=== PATIENT | male | born 1950 | race Caucasian/White ===

== ENCOUNTER 2024-04-21 16:47 | Observation (INO) | payer MEDICARE, SELFPAY ==
[2024-04-21] VITALS (32 sets, daily range): BP systolic 132–150; BP diastolic 71–89; PULSE 69–102; TEMP 36.7–36.9; O2SAT 93–98; BMI 35.4; BMI 36.7
--- NOTE | 2024-04-21 17:24 | PC.NURSE ---
Alert and oriented to person, place and time. Answers all questions appropriately. Patient and relay that patient was confused this morning but confusion has since resolved. Hand grasp equal, PERRL.
--- NOTE | 2024-04-21 17:26 | ECG_ITS ---
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
--- NOTE | 2024-04-21 17:26 | XR_ITS ---
[facility] [place] [id number] Patient Name: YAIMA VIGIL MRN: [id number] date: 1950 Sex: M Assigned Patient Location: ER Current Patient Location: ER Accession/Order Number: [id number] Exam Date: 04/21/2024 17:43 Report Date: 04/21/2024 19:33 At the request of: YANCI CASTAÑEDA Procedure: XR chest 1V EXAMINATION: XR chest 1V, , 04/21/2024 5:43 PM EST INDICATION: Dizziness HISTORY: Ordering Provider Reason for Exam: Dizziness Technologist Note: Additional: COMPARISON: None. TECHNIQUE: Chest x-ray: One view. FINDINGS: No pneumothorax, pleural effusion or focal airspace consolidation. Heart is normal in size. Bony thorax is unremarkable. XR/XR chest 1V IMPRESSION: No acute cardiopulmonary process. Electronically authenticated by: ELYSE DAUGHERTY Date: 04/21/2024 19:33
--- NOTE | 2024-04-21 17:28 | ED.GENADUL1 ---
HPI HPI - General Adult General Chief complaint: Altered Mental Status Stated complaint: Dizziness Time Seen by Provider: 04/21/24 17:18 Source: patient Mode of arrival: walk-in History of Present Illness HPI narrative: 74-year-old male presented to the emergency department for a chief complaint of dizziness which is now resolved. It started at 7:00 or 8:00 this morning. At 6 AM he had a headache. He felt like he was off balance and could not walk straight. He did not have any localized weakness. The patient states that it went away when he and his decided to come in here to get checked. His states that much earlier today he was talking and was not making much sense, she states that what he was saying did not make sense and she had some trouble understanding his words as well. Related Data Home Medications ?Medication ?Instructions ?Recorded ?Confirmed citalopram 40 mg tablet mg 04/21/24 donepezil 10 mg tablet mg 04/21/24 rosuvastatin 10 mg tablet mg 04/21/24 Allergies Allergy/AdvReac Type Severity Reaction Status Date / Time No Known Drug Allergies Allergy Verified 04/21/24 17:03 Opioid HPI Opioid Management Most Recent Opioid Data: No Data to Display Review of Systems ROS Narrative A ten point review of systems is negative except as noted above. PFSH PFSH Social History Little interest or pleasure in doing things: not at all Feeling down, depressed, or hopeless: not at all Exam Narrative Exam Narrative: Nurses note and vital signs reviewed and patient is not hypoxic. General: The patient appears well and in no apparent distress. Patient is resting comfortably on cart. Skin: Warm, dry, no pallor noted. There is no rash noted. Head: Normocephalic, atraumatic Eye: Normal conjunctiva, no drainage Ears, Nose, Mouth, and Throat: oral mucosa is moist. Nares patent. Cardiovascular: Regular Rate and Rhythm Respiratory: Patient is in no distress, no accessory muscle use, lungs are clear to auscultation, no wheezing, rales or rhonchi Back: non-tender GI: Soft and nontender Musculoskeletal: The patient has no evidence of calf tenderness, no pitting edema, symmetrical pulses noted bilaterally Neurological: A&O x4, normal speech; upper and lower extremity strength 5 out of 5 and symmetric. Cranial nerves II through XII are intact Psychiatric: Cooperative Constitutional Vital Signs, click to edit/add: Last Vital Signs Temp 98.5 F 04/21/24 17:03 Pulse 73 04/21/24 17:31 Resp 20 04/21/24 17:31 BP 132/71 04/21/24 17:31 Pulse Ox 94 L 04/21/24 17:31 O2 Del Method Room Air 04/21/24 17:31 Course Vital Signs Vital signs: Vital Signs Temperature 98.5 F 04/21/24 17:03 Pulse Rate 77 04/21/24 17:03 Respiratory Rate 18 04/21/24 17:03 Blood Pressure 149/74 H 04/21/24 17:03 Pulse Oximetry 95 04/21/24 17:03 Oxygen Delivery Method Room Air 04/21/24 17:03 Temperature 98.5 F 04/21/24 17:03 Pulse Rate 73 04/21/24 17:31 Respiratory Rate 20 04/21/24 17:31 Blood Pressure 132/71 04/21/24 17:31 Pulse Oximetry 94 L 04/21/24 17:31 Oxygen Delivery Method Room Air 04/21/24 17:31 Medical Decision Making MDM Narrative Medical decision making narrative: CT brain is negative and urinalysis is pending. CTA head and neck are ordered and are pending and the patient is signed out to Dr. Lara at change of shift. Differential Diagnosis Differential Diagnosis: Stroke, UTI, metabolic encephalopathy Lab Data Lab results reviewed: Yes I reviewed the patient's lab results Labs: Lab Results 04/21/24 Range/Units 17:28 WBC 7.2 (4.0-11.0) 10^3/uL RBC 4.30 L (4.70-6.10) 10^6/uL Hgb 13.9 L (14.0-18.0) g/dL Hct 39.4 L (42.0-54.0) % MCV 91.6 (80.0-94.0) fL MCH 32.3 (25.9-34.0) pg MCHC 35.3 H (29.9-35.2) g/dL RDW 13.4 (11.0-15.0) % Plt Count 153 (150-450) 10^3/uL MPV 10.5 (9.5-13.5) fL Seg Neuts % (Manual) 81.0 H (43.0-75.0) Lymphocytes % (Manual) 12.0 L (20.5-60.0) % Monocytes % (Manual) 7.0 (1.7-12.0) % Eosinophils % (Manual) 0.0 L (0.9-7.0) % Basophils % (Manual) 0.0 L (0.2-2.0) % Neutrophils # (Manual) 5.83 (1.4-6.5) 10^3/uL Lymphocytes # (Manual) 0.86 L (1.20-3.80) 10^3/uL Monocytes # (Manual) 0.50 (0.30-0.80) 10^3/uL Eosinophils # (Manual) 0.00 (0.00-0.70) 10^3/uL Basophils # (Manual) 0.00 (0.00-0.10) 10^3/uL Sodium 138 (136-145) mmol/L Potassium 3.7 (3.5-5.1) mmol/L Chloride 103 (98-107) mmol/L Carbon Dioxide 26.5 (21.0-32.0) mmol/L Anion Gap 12.2 BUN 24.0 H (7.0-18.0) mg/dL Creatinine 1.22 (0.70-1.30) mg/dL Est GFR ( Amer) >60 (>=60 mL/min/1.73m^2) Est GFR (Non-Af Amer) 58 L (>=60 mL/min/1.73m^2) BUN/Creatinine Ratio 19.7 Glucose 99 (74-106) mg/dL Calcium 8.8 (8.5-10.1) mg/dL Troponin I High Sens <4.0 L (4.0-76.1) pg/mL Imaging Data CT scan - head: Radiologist's impression: ITS Impressions Head CT 04/21/24 17:49 IMPRESSION: 1. Mild old microvascular ischemic change and age-related cerebral atrophy. 2. No acute intracranial process. Electronically authenticated by: ANUM DERAS Date: 04/21/2024 18:14 ECG Data Attestation: I personally reviewed and interpreted this ECG as follows: ( EKG on my interpretation shows sinus rhythm with rate of 76 and no acute change) Discharge Plan Discharge Patient Disposition: Still a Patient
[2024-04-21 17:47] LABS: Hematocrit 39.4 % (42.0-54.0); Hemoglobin 13.9 g/dL (14.0-18.0); Mean Corpuscular HGB Conc 35.3 g/dL (29.9-35.2); Mean Corpuscular Hemoglobin 32.3 pg (25.9-34.0); Mean Corpuscular Volume 91.6 fL (80.0-94.0); Mean Platelet Volume 10.5 fL (9.5-13.5); Platelet Count 153 10^3/uL (150-450); Red Cell Distribution Width 13.4 % (11.0-15.0); White Blood Count 7.2 10^3/uL (4.0-11.0)
--- NOTE | 2024-04-21 17:49 | CT_ITS ---
[facility] [place] [id number] Patient Name: YAIMA VIGIL MRN: [id number] date: 1950 Sex: M Assigned Patient Location: ER Current Patient Location: ER Accession/Order Number: [id number] Exam Date: 04/21/2024 17:43 Report Date: 04/21/2024 18:14 At the request of: YANCI CASTAÑEDA Procedure: CT head/brain wo con EXAM: CT head/brain wo con HISTORY: Dizziness. TECHNIQUE: Axial CT scans through the head were obtained without IV contrast administration. Dose reduction techniques were achieved by using: automated exposure control and/or adjustment of mA and/or kV according to patient size and/or use of an iterative reconstruction technique. COMPARISON: None. FINDINGS: Mild periventricular low attenuation in the cerebral hemispheres without associated mass effect. The brainstem and the cerebellum appear normal. The ventricular system and cortical sulci are prominent, secondary to cerebral volume loss. No area of abnormal mass effect, edema, or intracranial hemorrhage is shown. The visualized orbits show no abnormal mass. The visualized paranasal sinuses show no air-fluid level. Mastoid air cells are clear. CT/CT head/brain wo con IMPRESSION: 1. Mild old microvascular ischemic change and age-related cerebral atrophy. 2. No acute intracranial process. Electronically authenticated by: ANUM DERAS Date: 04/21/2024 18:14
[2024-04-21 17:59] LABS: Anion Gap 12.2; BUN Creatinine Ratio 19.7; Calcium 8.8 mg/dL (8.5-10.1); Carbon Dioxide 26.5 mmol/L (21.0-32.0); Chloride 103 mmol/L (98-107); Estimated GFR (African America >60 (>=60 mL/min/1.73m^2); Estimated GFR (Non-African Ame 58 (>=60 mL/min/1.73m^2); Glucose 99 mg/dL (74-106); Potassium 3.7 mmol/L (3.5-5.1); Sodium 138 mmol/L (136-145)
[2024-04-21 18:07] LABS: Troponin I High Sensitivity <4.0 pg/mL (4.0-76.1)
[2024-04-21 18:23] LABS: Lymphocytes Absolute Manual 0.86 10^3/uL (1.20-3.80); Segmented Neut Absolute Manual 5.83 10^3/uL (1.4-6.5)
--- NOTE | 2024-04-21 18:33 | CT_ITS ---
[address] [address] Patient Name: YAIMA VIGIL MRN: [id number] date: 1950 Sex: M Assigned Patient Location: ER Current Patient Location: Accession/Order Number: [id number] Exam Date: 04/21/2024 19:00 Report Date: 04/21/2024 20:36 At the request of: YANCI CASTAÑEDA Procedure: CT angio neck EXAMINATION: CT angio head, CT angio neck HISTORY: speech change, resolved , dizziness, left-sided weakness COMPARISON: No relevant comparison available. TECHNIQUE: Axial, Coronal, and Sagittal CT images with IV contrast. Multi-planar/3-D imaging to optimize visualization of vascular anatomy. Percent stenosis is based on NASCET criteria. Dose reduction techniques were achieved by using automated exposure control and/or adjustment of mA and/or kV according to patient size and/or use of iterative reconstruction technique. FINDINGS: HEAD: VASCULATURE: Mild atherosclerotic disease of the parasellar carotid arteries. No significant stenosis. No visible aneurysm or vascular malformation. VENTRICLES: No enlargement or displacement. CEREBRUM: Normal for age. No excessive atrophy, mass, or hemorrhage, or abnormal enhancement. CEREBELLUM: Normal for age. No excessive atrophy, mass, or hemorrhage, or abnormal enhancement. BRAINSTEM: Normal for age. No excessive atrophy, mass, or hemorrhage, or abnormal enhancement. BASAL CISTERNS: Normal. No subarachnoid hemorrhage or effacement. SKULL: Negative. NECK: RIGHT INTERNAL CAROTID: No hemodynamically significant stenosis or dissection. EXTERNAL CAROTID: No hemodynamically significant stenosis or dissection. COMMON CAROTID: No hemodynamically significant stenosis or dissection. VERTEBRAL: No hemodynamically significant stenosis or dissection. LEFT INTERNAL CAROTID: No hemodynamically significant stenosis or dissection. EXTERNAL CAROTID: No hemodynamically significant stenosis or dissection. COMMON CAROTID: No hemodynamically significant stenosis or dissection. VERTEBRAL: No hemodynamically significant stenosis or dissection. OTHER: Moderate degenerative disc disease of lower cervical spine. CT/CT angio neck IMPRESSION: 1. Minimal atherosclerotic disease. Otherwise normal CT angiography of the head and neck. 2. Degenerative disc disease of cervical spine. Electronically authenticated by: DIMA VAZQUEZ Date: 04/21/2024 20:36
--- NOTE | 2024-04-21 18:33 | CT_ITS ---
[address] [address] Patient Name: YAIMA VIGIL MRN: [id number] date: 1950 Sex: M Assigned Patient Location: ER Current Patient Location: Accession/Order Number: [id number] Exam Date: 04/21/2024 19:00 Report Date: 04/21/2024 20:36 At the request of: YANCI CASTAÑEDA Procedure: CT angio head EXAMINATION: CT angio head, CT angio neck HISTORY: speech change, resolved , dizziness, left-sided weakness COMPARISON: No relevant comparison available. TECHNIQUE: Axial, Coronal, and Sagittal CT images with IV contrast. Multi-planar/3-D imaging to optimize visualization of vascular anatomy. Percent stenosis is based on NASCET criteria. Dose reduction techniques were achieved by using automated exposure control and/or adjustment of mA and/or kV according to patient size and/or use of iterative reconstruction technique. FINDINGS: HEAD: VASCULATURE: Mild atherosclerotic disease of the parasellar carotid arteries. No significant stenosis. No visible aneurysm or vascular malformation. VENTRICLES: No enlargement or displacement. CEREBRUM: Normal for age. No excessive atrophy, mass, or hemorrhage, or abnormal enhancement. CEREBELLUM: Normal for age. No excessive atrophy, mass, or hemorrhage, or abnormal enhancement. BRAINSTEM: Normal for age. No excessive atrophy, mass, or hemorrhage, or abnormal enhancement. BASAL CISTERNS: Normal. No subarachnoid hemorrhage or effacement. SKULL: Negative. NECK: RIGHT INTERNAL CAROTID: No hemodynamically significant stenosis or dissection. EXTERNAL CAROTID: No hemodynamically significant stenosis or dissection. COMMON CAROTID: No hemodynamically significant stenosis or dissection. VERTEBRAL: No hemodynamically significant stenosis or dissection. LEFT INTERNAL CAROTID: No hemodynamically significant stenosis or dissection. EXTERNAL CAROTID: No hemodynamically significant stenosis or dissection. COMMON CAROTID: No hemodynamically significant stenosis or dissection. VERTEBRAL: No hemodynamically significant stenosis or dissection. OTHER: Moderate degenerative disc disease of lower cervical spine. CT/CT angio head IMPRESSION: 1. Minimal atherosclerotic disease. Otherwise normal CT angiography of the head and neck. 2. Degenerative disc disease of cervical spine. Electronically authenticated by: DIMA VAZQUEZ Date: 04/21/2024 20:36
[2024-04-21 18:53] LABS: Bilirubin Urine NEGATIVE (NEGATIVE); Blood Urine NEGATIVE (NEGATIVE); Clarity Urine CLEAR (CLEAR); Color Urine LT. YELLOW (YELLOW); Glucose Urine UA NEGATIVE (NEGATIVE); Ketones Urine NEGATIVE (NEGATIVE); Leukocyte Esterase Urine NEGATIVE (NEGATIVE); Nitrite Urine NEGATIVE (NEGATIVE); Protein Urine NEGATIVE (NEG/TRACE); Specific Gravity Urine <=1.005 (1.005-1.025); Urobilinogen Urine 0.2 EU/dL (0.2-1.0)
[2024-04-21 19:05] LABS: Bacteria Urine NONE SEEN #/HPF (NONE SEEN); Cast Seen? NONE SEEN #/LPF (NONE SEEN); Crystals Seen? None Seen #/HPF (None Seen); Mucus Urine NONE SEEN (NONE SEEN); RBC Urine 0-2 #/HPF (0-2); Squamous Epithelial Cell Urine RARE #/LPF (NONE/RARE); Urine Culture Indicated NO; WBC Urine NONE SEEN #/HPF (NONE SEEN)
--- NOTE | 2024-04-21 19:54 | ED_ITS ---
HPI - Altered Mental Status General Chief Complaint: Altered Mental Status Stated Complaint: Dizziness Time Seen by Provider: 04/21/24 17:18 Source: patient and family Mode of arrival: walk-in History of Present Illness HPI narrative: This 74-year-old male was signed out to me at shift change. The patient presents for evaluation of expressive aphasia. According to the patient's he woke up this morning and did not feel well. He had the chills and a sore throat with a mild headache. He also complained of some dizziness. She went to the barn and got home around 330 at which time she found that he was having expressive aphasia and unable to speak normally. He had some degree of slurred speech and was not making sense when he talked. His symptoms persisted after coming to the emergency department. Initial CT scan of the brain and cardiac workup was ordered. The CT scan of the brain was negative and a CT angio of the head and neck was ordered. The patient was seen and evaluated with his at the bedside. The states that his symptoms have improved since being here. He is now awake alert and oriented. His speech is clear. He did have a difficult time reciting his address but otherwise his mentation appears to be normal. I repeated his neuroexam. 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 He can recall when he met his and what circumstances were. He recalls that he retired from [employer] after being there for 30 years. At this time we are waiting for the CT angio of the head and neck. CT angio of the head and neck is included by his report does not show any significant stenosis. The patient was reevaluated. His symptoms have not changed. He is on cholesterol medications and has been for a period of time and also is on donezepil for dementia. Currently this was recently increased to 10 mg at the MI. The patient was able to provide me with this history. Will be medicated with 324 mg baby aspirin. Case was discussed with the hospitalist and he is excepted for admission to [facility]. Related Data Home Medications ?Medication ?Instructions ?Recorded ?Confirmed citalopram 40 mg tablet mg 04/21/24 donepezil 10 mg tablet mg 04/21/24 rosuvastatin 10 mg tablet mg 04/21/24 Allergies Allergy/AdvReac Type Severity Reaction Status Date / Time No Known Drug Allergies Allergy Verified 04/21/24 17:03 PFSH PFSH Social History Little interest or pleasure in doing things: not at all Feeling down, depressed, or hopeless: not at all Exam Constitutional Vital Signs, click to edit/add: Last Vital Signs Temp 98.5 F 04/21/24 17:03 Pulse 75 04/21/24 19:30 Resp 24 H 04/21/24 19:30 BP 132/71 04/21/24 17:31 Pulse Ox 95 04/21/24 19:10 O2 Del Method Room Air 04/21/24 17:31 Course Vital Signs Vital signs: Vital Signs Temperature 98.5 F 04/21/24 17:03 Pulse Rate 77 04/21/24 17:03 Respiratory Rate 18 04/21/24 17:03 Blood Pressure 149/74 H 04/21/24 17:03 Pulse Oximetry 95 04/21/24 17:03 Oxygen Delivery Method Room Air 04/21/24 17:03 Temperature 98.5 F 04/21/24 17:03 Pulse Rate 75 04/21/24 19:30 Respiratory Rate 24 H 04/21/24 19:30 Blood Pressure 132/71 04/21/24 17:31 Pulse Oximetry 95 04/21/24 19:10 Oxygen Delivery Method Room Air 04/21/24 17:31 MDM - Altered Mental Status Medical Records Medical records narrative: [place] [address] CT Scan Report Signed Patient: YAIMA VIGIL MR#: [id number] : 1950 Acct:[id number] Age/Sex: 74 / M ADM Date: 04/21/24 Loc: ER Attending Dr: Ordering Physician: Yanci Castañeda M.D. Date of Service: 04/21/24 Procedure(s): CT angio neck Accession Number(s): [id number] cc: [facility] ~ [facility] [place] [id number] Patient Name: YAIMA VIGIL MRN: [id number] date: 1950 Sex: M Assigned Patient Location: ER Current Patient Location: ER Accession/Order Number: [id number] Exam Date: 04/21/2024 19:00 Report Date: 04/21/2024 20:36 At the request of: YANCI CASTAÑEDA Procedure: CT angio neck EXAMINATION: CT angio head, CT angio neck HISTORY: speech change, resolved , dizziness, left-sided weakness COMPARISON: No relevant comparison available. TECHNIQUE: Axial, Coronal, and Sagittal CT images with IV contrast. Multi-planar/3-D imaging to optimize visualization of vascular anatomy. Percent stenosis is based on NASCET criteria. Dose reduction techniques were achieved by using automated exposure control and/or adjustment of mA and/or kV according to patient size and/or use of iterative reconstruction technique. FINDINGS: HEAD: VASCULATURE: Mild atherosclerotic disease of the parasellar carotid arteries. No significant stenosis. No visible aneurysm or vascular malformation. VENTRICLES: No enlargement or displacement. CEREBRUM: Normal for age. No excessive atrophy, mass, or hemorrhage, or abnormal enhancement. CEREBELLUM: Normal for age. No excessive atrophy, mass, or hemorrhage, or abnormal enhancement. BRAINSTEM: Normal for age. No excessive atrophy, mass, or hemorrhage, or abnormal enhancement. BASAL CISTERNS: Normal. No subarachnoid hemorrhage or effacement. SKULL: Negative. NECK: RIGHT INTERNAL CAROTID: No hemodynamically significant stenosis or dissection. EXTERNAL CAROTID: No hemodynamically significant stenosis or dissection. COMMON CAROTID: No hemodynamically significant stenosis or dissection. VERTEBRAL: No hemodynamically significant stenosis or dissection. LEFT INTERNAL CAROTID: No hemodynamically significant stenosis or dissection. EXTERNAL CAROTID: No hemodynamically significant stenosis or dissection. COMMON CAROTID: No hemodynamically significant stenosis or dissection. VERTEBRAL: No hemodynamically significant stenosis or dissection. OTHER: Moderate degenerative disc disease of lower cervical spine. CT/CT angio neck IMPRESSION: 1. Minimal atherosclerotic disease. Otherwise normal CT angiography of the head and neck. 2. Degenerative disc disease of cervical spine. Electronically authenticated by: DIMA VAZQUEZ Date: 04/21/2024 20:36 Lab Data Attestation: I reviewed the patient's lab results. Labs: Lab Results 04/21/24 04/21/24 Range/Units 17:28 18:44 WBC 7.2 (4.0-11.0) 10^3/uL RBC 4.30 L (4.70-6.10) 10^6/uL Hgb 13.9 L (14.0-18.0) g/dL Hct 39.4 L (42.0-54.0) % MCV 91.6 (80.0-94.0) fL MCH 32.3 (25.9-34.0) pg MCHC 35.3 H (29.9-35.2) g/dL RDW 13.4 (11.0-15.0) % Plt Count 153 (150-450) 10^3/uL MPV 10.5 (9.5-13.5) fL Seg Neuts % (Manual) 81.0 H (43.0-75.0) Lymphocytes % (Manual) 12.0 L (20.5-60.0) % Monocytes % (Manual) 7.0 (1.7-12.0) % Eosinophils % (Manual) 0.0 L (0.9-7.0) % Basophils % (Manual) 0.0 L (0.2-2.0) % Neutrophils # (Manual) 5.83 (1.4-6.5) 10^3/uL Lymphocytes # (Manual) 0.86 L (1.20-3.80) 10^3/uL Monocytes # (Manual) 0.50 (0.30-0.80) 10^3/uL Eosinophils # (Manual) 0.00 (0.00-0.70) 10^3/uL Basophils # (Manual) 0.00 (0.00-0.10) 10^3/uL Sodium 138 (136-145) mmol/L Potassium 3.7 (3.5-5.1) mmol/L Chloride 103 (98-107) mmol/L Carbon Dioxide 26.5 (21.0-32.0) mmol/L Anion Gap 12.2 BUN 24.0 H (7.0-18.0) mg/dL Creatinine 1.22 (0.70-1.30) mg/dL Est GFR ( Amer) >60 (>=60 mL/min/1.73m^2) Est GFR (Non-Af Amer) 58 L (>=60 mL/min/1.73m^2) BUN/Creatinine Ratio 19.7 Glucose 99 (74-106) mg/dL Calcium 8.8 (8.5-10.1) mg/dL Troponin I High Sens <4.0 L (4.0-76.1) pg/mL Urine Color Lt. yellow (YELLOW) Urine Clarity Clear (CLEAR) Urine pH 6.0 (5.0-9.0) Ur Specific [place] <=1.005 A (1.005-1.025) Urine Protein Negative (NEG/TRACE) mg/dL Urine Glucose (UA) Negative (NEGATIVE) mg/dL Urine Ketones Negative (NEGATIVE) mg/dL Urine Occult Blood Negative (NEGATIVE) Urine Nitrite Negative (NEGATIVE) Urine Bilirubin Negative (NEGATIVE) Urine Urobilinogen 0.2 (0.2-1.0) EU/dL Ur Leukocyte Esterase Negative (NEGATIVE) Urine RBC 0-2 (0-2) #/HPF Urine WBC None seen (NONE SEEN) #/HPF Ur Squamous Epith Cells Rare (NONE/RARE) #/LPF Urine Crystals None seen (None Seen) #/HPF Urine Bacteria None seen (NONE SEEN) #/HPF Urine Casts None seen (NONE SEEN) #/LPF Urine Mucus None seen (NONE SEEN) Ur Culture Indicated? No Discharge Plan Discharge Chief Complaint: Altered Mental Status Clinical Impression: Altered mental status, Expressive aphasia Patient Disposition: Admitted as Observation Time of Disposition Decision: 20:49 Condition: Good
[2024-04-21] MEDS: ASPIRIN 81 MG TAB.CHEW 324 MG PO (21:07)
[2024-04-21 21:11] LABS: Influenza Virus A Antigen Negative; Influenza Virus B Antigen Negative; Internal Control Within Normal Limits; SARS-CoV-2 Ag POSITIVE (NEGATIVE)
[2024-04-22] VITALS (11 sets, daily range): BP systolic 141–162; BP diastolic 73–92; PULSE 78–87; TEMP 36.1–38.3; O2SAT 93–96
--- NOTE | 2024-04-22 | MR_ITS ---
The [address] [address] Patient Name: YAIMA VIGIL MRN: [id number] date: 1950 Sex: M Assigned Patient Location: MS Current Patient Location: MS Accession/Order Number: [id number] Exam Date: 04/22/2024 11:00 Report Date: 04/22/2024 12:12 At the request of: GUILLERMO HINKLE Procedure: MR head/brain wo con EXAM: MR head/brain wo con HISTORY: Confusion, covid positive, rule out CVA COMPARISON: CT head 04/21/2024. TECHNIQUE: Multiplanar multisequence MR imaging of the brain was performed without intravenous contrast. FINDINGS: Calvarium/skull base: No focal marrow replacing lesion suggestive of neoplasm. Orbits: Grossly unremarkable. Paranasal sinuses: Imaged portions clear Brain: No restricted diffusion. Mild scattered T2 FLAIR signal hyperintensities are present involving the supratentorial white matter with sparing of the central pontine white matter. Mild to moderate parenchymal volume loss with associated prominence of the ventricular system and to a lesser extent sulci. No mass effect, hemorrhage, or hydrocephalus. Grossly normal flow-related signal in the major intracranial arteries and dural sinuses. MR/MR head/brain wo con IMPRESSION: No acute ischemia. Electronically authenticated by: AUBREY GORMAN Date: 04/22/2024 12:12
[2024-04-22] MEDS: ACETAMINOPHEN 325 MG TABLET 650 MG PO (04:32)
[2024-04-22 05:19] LABS: Basophils Percent Auto 0.1 % (0.2-2.0); Hematocrit 40.6 % (42.0-54.0); Hemoglobin 13.9 g/dL (14.0-18.0); Immature Granulocytes Abs Auto 0.03 10^3/uL (0.00-0.03); Immature Granulocytes Pct Auto 0.4 % (0.0-0.5); Lymphocytes Absolute Auto 0.7 10^3/uL (1.2-3.8); Lymphocytes Percent Auto 8.2 % (20.5-60.0); Mean Corpuscular HGB Conc 34.2 g/dL (29.9-35.2); Mean Corpuscular Volume 90.4 fL (80.0-94.0); Mean Platelet Volume 10.4 fL (9.5-13.5); Monocytes Absolute Auto 1.2 10^3/uL (0.3-0.8); Neutrophils Absolute Auto 6.6 10^3/uL (1.4-6.5); Neutrophils Percent Auto 77.3 % (43.0-75.0); Platelet Count 144 10^3/uL (150-450); Red Blood Count 4.49 10^6/uL (4.70-6.10); Red Cell Distribution Width 13.5 % (11.0-15.0); White Blood Count 8.5 10^3/uL (4.0-11.0)
[2024-04-22 05:41] LABS: Alanine Aminotransferase 32 U/L (16-63); Albumin Globulin Ratio 1.3; Alkaline Phosphatase 70 U/L (46-116); Aspartate Amino Transferase 27 U/L (15-37); BUN Creatinine Ratio 17.8; Bilirubin Total 0.4 mg/dL (0.2-1.0); Calcium 8.6 mg/dL (8.5-10.1); Carbon Dioxide 23.7 mmol/L (21.0-32.0); Chloride 101 mmol/L (98-107); Estimated GFR (African America >60 (>=60 mL/min/1.73m^2); Estimated GFR (Non-African Ame >60 (>=60 mL/min/1.73m^2); Globulin 3.1 g/dL; Glucose 185 mg/dL (74-106); Magnesium 1.9 mg/dL (1.8-2.4); Potassium 3.7 mmol/L (3.5-5.1); Sodium 138 mmol/L (136-145); Total Protein 7.1 g/dL (6.4-8.2)
--- NOTE | 2024-04-22 08:23 | PM.HP ---
HPI H&P: HPI History of Present Illness Chief complaint: Dizziness, EXCESSIVE APHASIA, COVID + Narrative: Patient is a 74 y.o white male with past medical history of mild/early dementia, depression and Hyperlipidemia, who gets most of his medical care at the [facility]. He presented to the ER yesterday chills and a sore throat with a mild headache. He also complained of some dizziness. Yesterday around 330 he was unable to speak normally and this was preceded by some left leg weakness the day before. He had some degree of slurred speech and was not making sense when he talked per . His symptoms persisted after coming to the emergency department but have resolved this morning. Initial CT scan of the brain and cardiac workup was ordered. The CT scan of the brain was negative and a CT angio of the head and neck was ordered. CT angio of the head and neck does not show any significant stenosis. Patient was medicated with 324 mg baby aspirin. He was continued on his rosuvastatin. He also tested positive for Covid-19. At the time of my exam this morning patient has no trouble with speech, he has no weakness. He said he is back to his normal. Opioid HPI Opioid Management Most Recent Pain and Opioid Data: Last Pain Assessment 04/22/24 13:39 Last MAR Pain Assessment 04/22/24 05:24 Last ORT Total Score 0 04/21/24 23:30 04/21/24 Last ORT Risk Category Low Risk 04/21/24 23:30 04/21/24 Review of Systems ROS Narrative ROS: a complete review of systems were reviewed with patient and are positive as below or listed in History of Chief Complaint. General: no fever, chills, night sweats Head: headache, no trauma, visual changes, nausea or vomiting Skin: no reported rashes, itching or sores Eyes: no blurriness of vision Ears: no reported hearing loss, vertigo, earache, or tinnitus Throat: sore throat, no hoarseness, swelling of neck, or tongue pain Heart: no chest pain Lungs: no shortness of breath but cough GI: no diarrhea or vomiting/nausea Urinary: no urinary urgency, frequency or pain Neuro: no numbness or tingling HEM: no bleeding issues or bruising ENDO: no thyroid problems Psych: anxiety and depression [facility] Medical History (Updated 04/22/24 @ 08:35 by Renee Chavira DO) Anxiety ?F41.9 - Anxiety disorder, unspecified (ICD-10) Hyperlipidemia ?E78.5 - Hyperlipidemia, unspecified (ICD-10) History of dementia ?Z86.59 - Personal history of other mental and behavioral disorders (ICD-10) Social History Little interest or pleasure in doing things: not at all Feeling down, depressed, or hopeless: not at all Meds Home Medications and Allergies Home Medications ?Medication ?Instructions ?Recorded ?Confirmed ?Type citalopram 40 mg tablet 40 mg PO DAILY 04/21/24 04/22/24 History donepezil 10 mg tablet 10 mg PO .QHS 04/21/24 04/22/24 History rosuvastatin 10 mg tablet 10 mg PO .QHS 04/21/24 04/22/24 History Allergies Allergy/AdvReac Type Severity Reaction Status Date / Time No Known Drug Allergies Allergy Verified 04/21/24 17:03 Exam Narrative Exam Narrative: General: Patient is alert, and oriented to person, place and time with normal affect, proper hygiene Skin: no visible rashes, or ulcers Head: atraumatic, acephalic Eyes: PERRLA, no nystagmus present, conjunctiva clear, no scleral icterus Ears: normal gross auditory acuity Nose: symmetric, no discharge, no maxillary or frontal sinus tenderness Neck: no masses palpated, normal thyroid, no JVD or audible carotid bruits Heart: Normal rate and rhythm, no murmurs/rubs/gallops Lungs: no audible wheezes, crackles and normal breath sounds all lung lawson Abdomen: Normal audible bowel sounds, no distension, No palpable masses, no organomegaly, no rebound/guarding/ or rigidity Musculoskeletal: no swelling bilateral lower extremities Neuro: CN II-X grossly intact, normal sensation upper and lower extremities Constitutional Vital Signs, click to edit/add: Last Vital Signs Temp 99.0 F 04/22/24 07:45 Pulse 80 04/22/24 08:00 Resp 14 04/22/24 07:45 BP 151/92 H 04/22/24 07:45 Pulse Ox 95 04/22/24 07:45 O2 Del Method Room Air 04/22/24 07:45 Results Labs Labs: Short CBC 04/21/24 04/22/24 Range/Units 17:28 04:56 WBC 7.2 8.5 (4.0-11.0) 10^3/uL Hgb 13.9 L 13.9 L (14.0-18.0) g/dL Hct 39.4 L 40.6 L (42.0-54.0) % Plt Count 153 144 L (150-450) 10^3/uL BMP 04/21/24 04/22/24 17:28 04:56 Sodium 138 138 Potassium 3.7 3.7 Chloride 103 101 Carbon Dioxide 26.5 23.7 BUN 24.0 H 18.0 Creatinine 1.22 1.01 Glucose 99 185 H Calcium 8.8 8.6 Liver Function 04/22/24 Range/Units 04:56 Total Bilirubin 0.4 (0.2-1.0) mg/dL AST 27 (15-37) U/L ALT 32 (16-63) U/L Alkaline Phosphatase 70 (46-116) U/L Albumin 4.0 (3.4-5.0) g/dL Urine 04/21/24 Range/Units 18:44 Urine Color Lt. yellow (YELLOW) Urine Clarity Clear (CLEAR) Urine pH 6.0 (5.0-9.0) Ur Specific [place] <=1.005 A (1.005-1.025) Urine Protein Negative (NEG/TRACE) mg/dL Urine Glucose (UA) Negative (NEGATIVE) mg/dL Assessment and Plan Assessment and Plan (1) Expressive aphasia: Assessment and Plan: Initial imaging with CT and CTA showed no significant pathology or acute stroke. Symptoms of slurred speech consistent with CVA. These symptoms have resolved this morning. Continue with Aspirin and Statin. Continue Neurochecks, NeuroStroke evalution, MRI this morning was negative and Echo is pending. Blood pressure is elevated and not optimized. Will place on Coreg 3.125mg BID. (2) Bronchitis due to COVID-19 virus: Assessment and Plan: Symptomatic treatment only. Chest X-ray showed no acute pneumonia, oxygen status remaining stable (3) Hyperlipidemia: Assessment and Plan: recheck lipids this morning, continue rosuvastatin Qualifiers: Hyperlipidemia type: unspecified Qualified Code(s): E78.5 - Hyperlipidemia, unspecified (4) Anxiety: Assessment and Plan: continue celexa, give Ativan prior to MRI for claustrophobia Plan Patient is a full code continue lovenox for DVT prophylaxis Patient is in observation status and not expected to cross 2 midnights. Hopeful discharge home today with close neurology follow up.
--- NOTE | 2024-04-22 08:36 | CA_ITS ---
Patient Name: YAIMA VIGIL MR#: [id number] : 1950 Exam Date: 04/22/2024 Ordering Doctor: ANNIE KIRKLAND . ECHOCARDIOGRAM REPORT PROCEDURE: CA ECHO LIMITED INDICATIONS: CVA COMPARISON: None. DESCRIPTION: Limited ECHOCARDIOGRAM Real-time transthoracic echocardiography with 2D and M-mode performed. QUALITY: Technical quality was good. LEFT VENTRICLE: Normal chamber size. Mild concentric left ventricular hypertrophy. Global left ventricular systolic function is normal. LV EF: Estimated left ventricular ejection fraction is 55-60%. DIASTOLIC: ATRIAL SEPTUM: Color Doppler does not reveal an intra-cardiac shunt. LEFT ATRIUM: Mild dilatation. RIGHT ATRIUM: Mild dilatation. RIGHT VENTRICLE: Normal chamber size. Normal right ventricular systolic function. TRICUSPID VALVE: Normal mobility and thickness. MITRAL VALVE: Normal mobility and thickness. Mitral annular calcification. AORTIC VALVE: Normal trileaflet appearance. Normal leaflet mobility. AORTIC ROOT: Normal diameter and appearance. PULMONIC VALVE: Normal thickness and mobility. PERICARDIUM: No evidence of pericardial effusion. IVC: Collapses with inspirations. Normal size. PLEURA: CONCLUSION: 1. Mild concentric left ventricular hypertrophy with normal systolic function. LVEF is estimated at 55-60%. 2. Normal right ventricular size and systolic function. 3. Mild biatrial dilatation. 4. The interatrial septum is intact by color Doppler interrogation. 5. Saline contrast study was not performed. 6. Limited study performed with no Doppler interrogation of the valves, as requested. Adult Echocardiography Procedure Report Left Ventricle LVEDD (3.7 - 5.6 cm): 5.00 cm LVESD (2.2 - 4.0 cm): 3.16 cm LVIVS thickness (0.6 - 1.2 cm): 1.08 cm LVPW thickness (0.5 - 1.0 cm): 1.06 cm LVOT Diameter 2.52 cm Left Ventricular Ejection Fraction: 55-60 % Left Atrium LA Volume Index (2D A2C): 39.00 ml/m2 Left Atrium Systolic Dimension: 4.56 cm Mitral Valve Right Ventricle RV Internal Diastolic Dimension: 3.66 cm Aorta AO Root Diam: 3.62 cm Ascending Ao Diam: 4.18 cm Aortic Valve Tricuspid Valve Pulmonic Valve Right Atrium Right Atrium Systolic Pressure: 46.48 ml, 46.48 ml Dictated by: Warren Yuen M.D. on 04/26/2024 at 13:25 Approved by: Warren Yuen M.D. on 04/26/2024 at 13:29
[2024-04-22 09:02] LABS: Estimated Average Glucose 126 mg/dL
[2024-04-22 09:11] LABS: Chol HDL Ratio 2.2; Cholesterol 152 mg/dL (<=200); HDL Cholesterol 69 mg/dL (40-60); Thyroid Stimulating Hormone 1.115 uIU/mL (0.358-3.740); Triglycerides 42 mg/dL (<=150); VLDL CHOLESTEROL 8.4 mg/dL
[2024-04-22] MEDS: CARVEDILOL 3.125 MG TABLET PO (09:38)
[2024-04-22] MEDS: CITALOPRAM HYDROBROMIDE 20 MG TABLET 40 MG PO (09:38)
[2024-04-22] MEDS: LORAZEPAM 0.5 MG TABLET 0.25 MG PO (10:49)
--- NOTE | 2024-04-22 12:03 | CM.NOTE ---
Rounds made with Dr. Chavira, discussed test results with pt and need for echo and MRI prior to discharge. Teleneuro will also evaluate pt today with further recommendations. Pt will need to f/u with PCP and neurologist.
--- NOTE | 2024-04-22 12:05 | CM.NOTE ---
Discussed Medicare Outpatient Observation Notice with pt, pt verbalizes understanding and signs paper. Original given to pt and copy placed on pt's chart.
--- NOTE | 2024-04-22 15:58 | PM.DS1 ---
DS: Providers Provider Date of admission: 04/21/24 22:20 Primary care physician: RUSS SALEEM Attending physician on admission: Renee Chavira Consults: 04/22/24 08:38 Occupational Therapy Eval and Treat Routine Reason for consultation: CVA symptoms Has provider been notified: No Physical Therapy Eval and Treat Routine Reason for consultation: CVA symptoms Has provider been notified: No 04/22/24 08:40 Consult to Telestroke Routine Reason for consultation: CVA symptoms Has provider been notified: No Discharging clinician: Renee Chavira DS: Diagnosis Discharge Diagnosis (1) Expressive aphasia: (2) Bronchitis due to COVID-19 virus: (3) Hyperlipidemia: Qualifiers: Hyperlipidemia type: unspecified Qualified Code(s): E78.5 - Hyperlipidemia, unspecified (4) Anxiety: DS: Summary Hospital Course Hospital Course: patient with normal MRI of the brain, CT and CTA, speech symptoms have resolved. Telestroke consult recommended outpatient EEG which can be ordered when he sees Neurologist on May 11. Also recommended daily aspirin 81mg daily in addition to his home medications. Continue to monitor blood pressures, heart healthy diet. He will follow up with PCP for Echocardiogram results and further work up. Symptomatic treatment of Covid. Patient may return to the ER with any worsening signs or symptoms. Status at Discharge Functional status at discharge: independent ambulation Overall status at discharge: patient is back to baseline Time Spent with Patient Time attestation: Total time spent providing and/or coordinating discharge services: Time spent: greater than 30 minutes Quality: Stroke Onset of Symptoms Date: 04/21/24 Onset of Symptoms Time: 11:30 Symptom Onset Unknown: Yes Exam Narrative Exam Narrative: no changes at the time of discharge from the admission H&P dated 04/22/24 Constitutional Vital Signs, click to edit/add: Last Vital Signs Temp 97 F L 04/22/24 12:00 Pulse 78 04/22/24 12:00 Resp 20 04/22/24 12:00 BP 141/73 04/22/24 12:00 Pulse Ox 96 04/22/24 12:00 O2 Del Method Room Air 04/22/24 12:00 DS: Data Data Completed and Pending Labs on day of discharge: Labs from last 24 hours 04/22/24 04/21/24 04/21/24 04:56 20:50 18:44 WBC 8.5 RBC 4.49 L Hgb 13.9 L Hct 40.6 L MCV 90.4 MCH 31.0 MCHC 34.2 RDW 13.5 Plt Count 144 L MPV 10.4 Neut % (Auto) 77.3 H Lymph % (Auto) 8.2 L [place] % (Auto) 14.0 H Eos % (Auto) 0.0 L Baso % (Auto) 0.1 L Neut # (Auto) 6.6 H Lymph # (Auto) 0.7 L [place] # (Auto) 1.2 H Eos # (Auto) 0.0 Baso # (Auto) 0.0 Abs Immat Gran (auto) 0.03 Seg Neuts % (Manual) Lymphocytes % (Manual) Monocytes % (Manual) Eosinophils % (Manual) Basophils % (Manual) Imm/Tot Granulo (auto) 0.4 Neutrophils # (Manual) Lymphocytes # (Manual) Monocytes # (Manual) Eosinophils # (Manual) Basophils # (Manual) Sodium 138 Potassium 3.7 Chloride 101 Carbon Dioxide 23.7 Anion Gap 17.0 BUN 18.0 Creatinine 1.01 Est GFR ( Amer) >60 Est GFR (Non-Af Amer) >60 BUN/Creatinine Ratio 17.8 Glucose 185 H Estimat Average Glucose 126 Hemoglobin A1c 6.0 Calcium 8.6 Magnesium 1.9 Total Bilirubin 0.4 AST 27 ALT 32 Alkaline Phosphatase 70 Troponin I High Sens Total Protein 7.1 Albumin 4.0 Globulin 3.1 Albumin/Globulin Ratio 1.3 Triglycerides 42 Cholesterol 152 LDL Cholesterol, Calc 75.0 VLDL Cholesterol 8.4 HDL Cholesterol 69 H Cholesterol/HDL Ratio 2.2 TSH 1.115 Urine Color Lt. yellow Urine Clarity Clear Urine pH 6.0 Ur Specific [place] <=1.005 A Urine Protein Negative Urine Glucose (UA) Negative Urine Ketones Negative Urine Occult Blood Negative Urine Nitrite Negative Urine Bilirubin Negative Urine Urobilinogen 0.2 Ur Leukocyte Esterase Negative Urine RBC 0-2 Urine WBC None seen Ur Squamous Epith Cells Rare Urine Crystals None seen Urine Bacteria None seen Urine Casts None seen Urine Mucus None seen Ur Culture Indicated? No Influenza Type A Ag Negative Influenza Type B Ag Negative SARS-CoV-2 Ag (CV2AG) Positive A 04/21/24 17:28 WBC 7.2 RBC 4.30 L Hgb 13.9 L Hct 39.4 L MCV 91.6 MCH 32.3 MCHC 35.3 H RDW 13.4 Plt Count 153 MPV 10.5 Neut % (Auto) Lymph % (Auto) [place] % (Auto) Eos % (Auto) Baso % (Auto) Neut # (Auto) Lymph # (Auto) [place] # (Auto) Eos # (Auto) Baso # (Auto) Abs Immat Gran (auto) Seg Neuts % (Manual) 81.0 H Lymphocytes % (Manual) 12.0 L Monocytes % (Manual) 7.0 Eosinophils % (Manual) 0.0 L Basophils % (Manual) 0.0 L Imm/Tot Granulo (auto) Neutrophils # (Manual) 5.83 Lymphocytes # (Manual) 0.86 L Monocytes # (Manual) 0.50 Eosinophils # (Manual) 0.00 Basophils # (Manual) 0.00 Sodium 138 Potassium 3.7 Chloride 103 Carbon Dioxide 26.5 Anion Gap 12.2 BUN 24.0 H Creatinine 1.22 Est GFR ( Amer) >60 Est GFR (Non-Af Amer) 58 L BUN/Creatinine Ratio 19.7 Glucose 99 Estimat Average Glucose Hemoglobin A1c Calcium 8.8 Magnesium Total Bilirubin AST ALT Alkaline Phosphatase Troponin I High Sens <4.0 L Total Protein Albumin Globulin Albumin/Globulin Ratio Triglycerides Cholesterol LDL Cholesterol, Calc VLDL Cholesterol HDL Cholesterol Cholesterol/HDL Ratio TSH Urine Color Urine Clarity Urine pH Ur Specific [place] Urine Protein Urine Glucose (UA) Urine Ketones Urine Occult Blood Urine Nitrite Urine Bilirubin Urine Urobilinogen Ur Leukocyte Esterase Urine RBC Urine WBC Ur Squamous Epith Cells Urine Crystals Urine Bacteria Urine Casts Urine Mucus Ur Culture Indicated? Influenza Type A Ag Influenza Type B Ag SARS-CoV-2 Ag (CV2AG) Discharge Plan Discharge Disposition: Home, Self-Care Condition: Good Discharge Medications: New aspirin 81 mg tablet,delayed release (DR/EC) 81 mg PO DAILY 30 Days Qty: 30 0RF Continued citalopram 40 mg tablet 40 mg PO DAILY donepezil 10 mg tablet 10 mg PO .QHS rosuvastatin 10 mg tablet 10 mg PO .QHS Activity: increase activity as tolerated Diet: advance to your usual diet Print Language: Nauruan Patient Instructions: Aspirin (By mouth), Altered Mental Status (GEN), COVID-19 (Coronavirus Disease 2019) (DC) Forms: Portal Instructions Follow Up Appointments: Dr Keyur Beckham. Apr 29, 2024 @1:30 , Follow up Echo results Adv Neurology [address] [place] # [phone] May 13 2024 @2:30, Neurology/Stroke team recommended they set you up with outpatient EEG
--- NOTE | 2024-04-24 15:41 | CM.DCFOLLOWU ---
Person spoke with:well How are you feeling?well How is your pain?none Did you understand your discharge instructions?yes Do you have any questions about your discharge instructions?no Were you given any prescriptions at discharge?yes Were you able to get your prescriptions filled?yes Do you understand how to take your medications as ordered?yes Do you have any questions about your follow up appointment and do you plan to keep your follow up appointment? no questions, follow ups reviewed Is there anything else that you would like to discuss?no Questions/Comments/Concerns/Other:none
== END 2024-04-22 16:22 | disposition home or self-care (01) ==
LOC: ER 20:50 → MS 22:25
PROVIDERS: Emergency Medicine; Registered Nurse; Admitting Provider Family Medicine; Emergency Provider Emergency Medicine; PCP Family Medicine; Visit Provider Family Medicine
DX: R47.01 Aphasia (principal); U07.1 COVID-19; J40 Bronchitis, not specified as acute or chronic; E78.5 Hyperlipidemia, unspecified; Z79.82 Long term (current) use of aspirin; F41.9 Anxiety disorder, unspecified; F32.A Depression, unspecified; F03.A0 Unspecified dementia, mild, without behavioral disturbance, psychotic disturbance, mood disturbance, and anxiety; M50.30 Other cervical disc degeneration, unspecified cervical region; R42 Dizziness and giddiness; R41.82 Altered mental status, unspecified; G47.30 Sleep apnea, unspecified; I10 Essential (primary) hypertension; G45.9 Transient cerebral ischemic attack, unspecified; G93.49 Other encephalopathy
CPT/HCPCS: 36415; 70450; 70496; 70498; 70551; 71045; 80048; 80053; 80061; 81001; 83036; 83735; 84443; 84484; 85007; 85025; 85027; 87804; 87811; 93005; 93308; 94761; 97165; 99285; G0378; Q9967

== ENCOUNTER 2024-09-03 09:17 | Outpatient (OUT) | payer MEDICARE, SELFPAY ==
--- OUTSIDE RECORDS SUMMARY | 2024-08-27 09:40 | XMS_ITS | Encounter Summary ---
Author Organization [facility] Address [address] [place] [address] Care Team Providers Care Rubber Trimmer Name Role Phone Kay Baer MD Primary Care Provider [phone] Kay Baer MD Unavailable [phone] Reason for Visit * Reason Comments Transient Ischemic Attack Encounter Details Date Type Department Care Team (Latest Contact Info) Description 08/27/2024 9:40 AM EDT Office Visit [facility] SCHILLING[facility] [address] [place] [phone] Rosanna Jacome PA [address] [place] [address] TIA (transient ischemic attack) (Primary Dx); Hyperlipidemia, unspecified hyperlipidemia type (CMS/HCC); Diplopia Social History Tobacco Use Types Packs/Day Years Used Date Smoking Tobacco: Never Smokeless Tobacco: Never Alcohol Use Standard Drinks/Week Comments Not Currently 0 (1 standard drink = 0.6 oz pur e alcohol) Caffine: 2 cups daily PHQ-2 Answer Date Recorded Patient Health Questionnaire-2 Score 0 02/21/2024 Sex and Gender Information Value Date Recorded Sex Assigned at Not on file Legal Sex Male 7:26 PM EDT Gender Identity Male 06/21/2022 7:26 PM EDT Sexual Orientation Not on file documented as of this encounter Last Filed Vital Signs Vital Sign Reading Time Taken Comments Blood Pressure 160/90 08/27/2024 9:40 AM EDT Pulse 58 08/27/2024 9:40 AM EDT Temperature - - Respiratory Rate 16 08/27/2024 9:40 AM EDT Oxygen Saturation 94% 08/27/2024 9:40 AM EDT Inhaled Oxygen Concentration - - Weight 113 kg (249 lb) 08/27/2024 9:40 AM EDT Height 175.3 cm (5' 9 ) 08/27/2024 9:40 AM EDT Body Mass Index 36.77 08/27/2024 9:40 AM EDT documented in this encounter Progress Notes * JANNA Sarmiento - 08/27/2024 9:40 AM EDT Images from the original note were not included. Chief Complaint: Stroke Subjective Devyn Dunlap, 74 y.o., male STROKE -on daily ASA -denies any new signs or symptoms of stroke DIPLOPIA -MRI was not done at this time -states he has questions if this needs to be done -labs to review -continues to have some double vision -reports this is less frequent -notices mostly when things are a far distance away Review of Systems Constitutional: Negative for appetite change, fatigue and fever. Eyes: Positive for visual disturbance. Respiratory: Negative for cough, shortness of breath and wheezing. Cardiovascular: Negative for chest pain, palpitations and leg swelling. Gastrointestinal: Negative for abdominal pain, constipation, diarrhea and nausea. Musculoskeletal: Negative for arthralgias, gait problem and myalgias. Neurological: Negative for dizziness, tremors, numbness and headaches. Cognitive dysfunction Past Medical History: Diagnosis Date Anxiety Depression (CMS/HCC) Hyperlipidemia (CMS/HCC) No past surgical history on file. Family History Problem Relation Name Age of Onset Parkinsonism Mother Prostate cancer Father Alzheimer's disease Father Parkinsonism Father Social History Tobacco Use Smoking status: Never Smokeless tobacco: Never Substance Use Topics Alcohol use: Not Currently Comment: Caffine: 2 cups daily Allergies: Atorvastatin Vitals: 08/27/24 0940 BP: 160/90 Pulse: 58 Resp: 16 SpO2: 94% Body mass index is 36.77 kg/m??. Weight: 249 lb Neurologic exam: Mental status: Awake, alert to person, place and time. Recent and remote memory are intact. Language is fluent without aphasia. Attention and concentration are normal. Fund of knowledge is appropriate for level of education. Cranial nerves: CN II: Visual acuity is normal. Visual lawson full to confrontation. CN III, IV, : pupils equal round and reactive to light. Extraocular movements intact. No ptosis present. CN V: Facial sensation is normal. CN VII: Full and symmetric facial movement. CN VIII: Hearing is normal to finger rub bilaterally: CN IX and X: Palate elevates symmetrically. CN XI: Shoulder shrug is normal bilaterally. CN XII: Tongue is midline without atrophy or fasciculation. Motor: RUE Strength deltoid, , biceps , triceps , wrist extensors , wrist flexor , airplane mechanic apprentice strength 5/5. LUE Strength deltoid , biceps , triceps , wrist extensors , wrist flexor , airplane mechanic apprentice strength 5/5. RLE Strength illopsoas, quadriceps, tibialis anterior, and gastrocnemius strength 5/5. LLE Strength illopsoas, quadriceps, tibialis anterior, and gastrocnemius strength 5/5. Normal tone x4 extremities. Bulk is normal. Sensory: Sensation is intact to light touch throughout Four extremities. Reflexes: RUE biceps reflex 1+ brachioradialis reflex 2+ . LUE biceps reflex 1+ brachioradialis reflex 2+ . RLE knee reflex 0 . LLE knee reflex 0 . Donovan's sign negative. Coordination: Eevskx-oy-shox testing and rapid alternating movements are normal, slight difficulty on the right but able to make target Rapid alternating movements normal Heel to isaac normal Gait: Normal Review and summary of old records: Blood work 08/12/2024: acetylcholine receptor binding antibody <0.3, acetylcholine receptor blocking and modulating labs CT angiogram of the head and neck on 04/21/2024: Minimal atherosclerotic disease. Otherwise unremarkable angio of the head and neck. Degenerative disc disease noted of the cervical spine. CT of the brain without contrast on 04/21/2024: No acute process. Mild old microvascular changes and age-related atrophy. MRI of the brain without contrast on 04/21/2024: No acute ischemia I have reviewed hospital admission to [place] on 04/21/2024 with discharge on 04/22/2024. He has apast medical history of early-onset dementia, depression and hyperlipidemia.CT, MRI, CT angiogram were unremarkable. Patient was diagnosed with COVID infection. He did have an echocardiogram which heis following in the outpatient setting with his primary care team. He was placed on baby aspirin for secondary stroke prevention and discharged in stable condition. Assessment/Plan Diagnoses and all orders for this visit: TIA (transient ischemic attack) Hyperlipidemia, unspecified hyperlipidemia type (CMS/HCC) It is my impression that the patient had a transient ischemic attack versus metabolic process secondary to COVID infection. Patient initially presented with confusion, numbness of the left arm, imbalance and speech disturbance. He was admitted to [facility] in mid April 2024. He had an unremarkable CT, CT angiogram and MRI of the brain. He was placed on an aspirin for secondary stroke prevention and was discharged in stable condition with the finding of positive COVID test. He does seem to have rebounded back to his baseline. He does note some ongoing cognitive dysfunction however which was there prior to the hospital admission according to records. No new stroke signs or symptoms. PLAN -Continue aspirin 81 mg p.o. daily for secondary stroke prevention -Goal should be LDL less than 70 in the setting of concern for cerebrovascular disease and the patient is already on statin medication -Continue following PCP for stroke risk factor management -I counseled the patient on stroke signs and symptoms and advised the patient to go immediately to the emergency room should these symptoms develop. The patient states understanding. NEW: Diplopia Patient has new onset of double vision that began June 2024 with symptoms gradually worsening. Thedouble vision is not persistent throughout the day and can fluctuate. He has been evaluated by ophthalmology and has pending CBC, ESR, and CRP. He was recently evaluated in the hospital for TIA and had unremarkable CTA of head and neck at that time. Blood work was ordered at last visit including Acetylcholine receptor blocking, binding, and modulating, Musk antibody and TSH. Per [facility], the only available result was acetylcholine receptor binding antibody. Patient has not yet scheduled his MRI but is agreeable to do so. PLAN - Acetylcholine receptor binding antibody normal - I will request recent ophthalmology note for review - Patient advised to call to schedule brain MRI; he can reach out to our office for medication to help with claustrophobia once he has the scheduled date -Continue aspirin for secondary stroke prevention Additional information was taken with the patient's who accompanied him to the visit today. Pt has been fully educated on their diagnosis, lab results, treatment options, follow up plan, and return instructions Rosanna Jacome PA-C documented in this encounter Plan of Treatment Upcoming Encounters Date Type Department Care Team (Late st Contact Info) Description 11/19/2024 11:00 AM EDT Office Visit [facility] PALACI[facility] [address] [place] [address] Alejandro Cespedes DO [address] [place], [place] [id number] documented as of this encounter Visit Diagnoses Diagnosis TIA (transient ischemic attack)- Primary Unspecified transient cerebral ischemia Hyperlipidemia, unspecified hyperlipidemia type (CMS/HCC) Diplopia documented in this encounter Additional Health Concerns Assessment Noted Time PHQ-9 Depression Total Score: 4 09/21/19 24 10:00 AM EDT documented as of this encounter Care Teams Rubber Trimmer Relationship Specialty Start Date End Date Kay Baer MD [address] [facility] [place] [address] PCP - General Family Medicine 09/12/22 Kay Baer MD [address] [facility] [place] [address] PCP - Char RODRIGUEZ 04/09/23 documented as of this encounter
--- OUTSIDE RECORDS SUMMARY | 2024-09-03 09:18 | XMS_ITS | Encounter Summary ---
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, psychotic disturbance, mood disturbance, or anxiety, unspecified timing of dementia onset (CMS/HCC); Mixed hyperlipidemia (CMS/HCC) Social History Tobacco Use Types Packs/Day Years Used Date Smoking Tobacco: Never Smokeless Tobacco: Never PHQ-2 Answer Date Recorded Patient Health Questionnaire-2 Score 0 09/12/2022 Sex and Gender Information Value Date Recorded Sex Assigned at Not on file Legal Sex Male 7:26 PM EDT Gender Identity Male 06/21/2022 7:26 PM EDT Sexual Orientation Not on file documented as of this encounter Miscellaneous Notes * Telephone Encounter - Porsha Carrillo - 01/08/2023 2:52 PM EDT Would like 90-DAY supply sent to [facility]. Thank you! 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, psychotic disturbance, mood disturbance, or anxiety, unspecified timing of dementia onset (CMS/HCC) Mixed hyperlipidemia (CMS/[facility]) Mixed hyperlipidemia documented in this encounter Additional Health Concerns Assessment Noted Time PHQ-9 Depression Total Score: 0 09/13/19 9:00 AM EDT documented as of this encounter Care Teams Fine Grade Bulldozer Operator Relationship Specialty Start Date End Date Kay Baer MD [address] [place] [address] PCP - General Family Medicine 09/12/22 January Snyder MD [address] [facility] [place] [address] PCP - Char RODRIGUEZ 09/07/22 04/08/23 Kay Baer MD [address] [facility] [place] [address] PCP - Char RODRIGUEZ 04/09/23 Kay Thomas, RN Registered Nurse Family Medicine 06/01/23 02/04/24 documented as of this encounter
--- OUTSIDE RECORDS SUMMARY | 2024-09-03 09:18 | XMS_ITS | Encounter Summary ---
Author Organization [facility] Address [address] [facility] [place] [address] Care Team Providers Care B Operator Name Role Phone Kay Baer MD Primary Care Provider [phone] Kay Baer MD Unavailable [phone] Encounter Details Date Type Department Care Team (Late Contact Info) Description 08/27/2024 Bamboo flowsheet [facility] MAGAÑAEVUE [address] [facility] [address] [place] [phone] Rosanna Jacome PA [address] [place], [place] [id number] Social History Tobacco Use Types Packs/Day Years [...] on file documented as of this encounter Plan of Treatment Upcoming Encounters Date Type Department Care Team (Late Contact Info) Description 11/19/2024 11:00 AM EDT Office Visit [facility] PALACIOS [address] [place] [phone] Alejandro Cespedes DO [address] [place], [place] [phone] documented as of this encounter Visit Diagnoses Not on filedocumented in this encounter Additional Health Concerns Assessment Noted Time PHQ-9 Depression Total Score: 4 09/21/19 24 10:00 AM EDT documented as of this encounter Care Teams B Operator Relationship Specialty Start Date End Date Kay Baer MD [address] [place] [address] PCP - General Family Medicine 09/12/22 Kay Baer MD [address] [facility] [place] [address] PCP - Char RODRIGUEZ 04/09/23 documented as of this encounter
--- OUTSIDE RECORDS SUMMARY | 2024-09-03 09:18 | XMS_ITS | Clinical Summary ---
Author Organization [facility] Address [id number] [address] [place] [address] Care Team Providers Care Mainframe Systems Administrator Name Role Phone Kay Baer MD Primary Care Provider [phone] Allergies Active Allergy Reactions Criticality Noted Date Comments Atorvastatin 06/04/2018 Simvastatin 06/04/2018 Medications multivitamin (MULTI-DAY ORAL) Take by mouth. Active garlic 100 mg tablet Take by mouth. Active citalopram (CeleXA) 40 mg tablet Take 1 tablet (40 mg total) by mouth in the morning. Active nutritional supplement/fibe r ([id number]-GT MP ORAL) Take by mouth. Active donepezil (ARICEPT) 10 mg tablet Take 1 tablet (10 mg total) by mouth nightly. 03/19/2019 Active rosuvastatin (CRESTOR) 5 mg tablet Take 1 tablet (5 mg total) by mouth in the morning. 03/18/2019 Active memantine (NAMENDA) 5 mg tablet Take 1 tablet (5 mg total) by mouth in the morning and 1 tablet (5 mg total) before bedtime. Active Active Problems Problem Noted Date Diagnosed Date Benign essential hypertension 05/24/2018 Overview (08/07/2023): Last Assessment & Plan: Stable BP on no medications. Hyperlipidemia Sleep apnea Depression Family History Medical History Relation Name Comments Alzheimer's disease Father Cancer Father Parkinsonism Mother Relation Name Status Comments Brother Alive Daughter Alive Father Mother Sister Alive Son Alive Social History Tobacco Use Types Packs/Day Years Used Date Smoking Tobacco: Never Smokeless Tobacco: Never Alcohol Use Standard Drinks/Week Comments Yes 0 (1 standard drink = 0.6 oz pur e alcohol) sometimes Childcare Answer Date Recorded Childcare Unknown 09/18/2018 Employment Answer Date Recorded Employment Unknown 09/18/2018 Hunger Screening Answer Date Recorded Within the past 12 months we worried whether our food would run out before we got money to buy more. Never True 08/07/2023 Within the past 12 months th e food we bought just didn't last and we didn't have money to get more. Never True 08/07/2023 Purpose - Life Answer Date Recorded Purpose and direction in life Unknown Sex and Gender Information Value Date Recorded Sex Assigned at Not on file Legal Sex Male 11:59 AM EDT Gender Identity Not on file Sexual Orientation Not on file Last Filed Vital Signs Vital Sign Reading Time Taken Comments Blood Pressure 129/73 01/29/2024 11:02 AM EDT Pulse 68 01/29/2024 11:02 AM EDT Temperature 36.3 C (97.3 F) 08/30/2020 7:00 AM EDT Respiratory Rate 15 08/30/2020 8:35 AM EDT Oxygen Saturation 95% 01/29/2024 11: 02 AM EDT Inhaled Oxygen Concentration - - Weight 111.7 kg (246 lb 4.8 oz) 024 11:02 AM EDT Height 172.7 cm (5' 8 ) 01/29/2024 11:0 2 AM EDT Body Mass Index 37.45 01/29/2024 11:02 AM EDT Plan of Treatment Health Maintenance Due Date Last Done Comments Depression Screening 1962 Adult BMI Follow Up Plan 1969 Zoster (Shingles) Vaccine (2 of 3) 06/10/20142014 Fall Risk Screening 02/27/2016 DTaP,Tdap and Td Vaccines (2 - Td or Tdap) 04/09/2018 04/09/2008 COVID-19 Vaccine (4 - 2023-2 5 season) 2023 01/19/2021, 05/31/2020, 05/10/2020 Influenza Vaccine 12/08/2024 Adult BMI Screening 01/28/2025 01/29/2024 Tobacco Screening 01/28/2025 01/29/2024 Medical Devices Not on file Insurance [employer] Care Teams Mainframe Systems Administrator Relationship Specialty Start Date End Date Kay Baer MD [address] [place] [address] PCP - General Family Medicine 04/22/24
--- OUTSIDE RECORDS SUMMARY | 2024-09-03 09:18 | XMS_ITS | Clinical Summary ---
Author Organization [facility] Healthcare Address [address] [place] [address] Care Team Providers Care Tipple Worker Name Role Phone Kay Baer MD Primary Care Provider [phone] Kay Baer MD Unavailable [phone] Allergies Active Allergy Reactions Criticality Noted Date Comments Atorvastatin 06/04/2018 Medications GARLIC PO Take 100 mg by mouth in the morning. Active melatonin 5 MG tablet Take 10 mg by mouth at bedtime Active Multiple Vitamin (multivitamin) capsule Take 1 capsule by mouth Daily Active ibuprofen 600 MG tablet TAKE 1 TABLET BY MOUTH EVERY 6 HOURS FOR PAIN 12/05/19 24 Active Lyn Low Dose 81 MG EC tablet Take 81 mg by mouth Daily 04/22/19 25 Active omega-3 (FISH OIL) 300 MG capsule Take by mouth Daily Active citalopram (CeleXA) 40 MG tabletIndications: Recurrent major depressive disorder, in full remission (CMS/HCC) Take 1 tablet (40 mg) by mouth Daily 90 tablet 1 06/11/19 25 Active rosuvastatin (Crestor) 10 MG tabletIndications: Mixed hyperlipidemia (CMS/HCC) Take 1 tablet (10 mg) by mouth Daily 90 tablet 1 06/11/19 25 Active donepezil (Aricept) 5 MG tabletIndications: Altered mental status, unspecified altered mental status type TAKE 1 TABLET(5 MG) BY MOUTH AT BEDTIME 30 tablet 1 08/06/19 25 Active diazePAM (Valium) 5 MG tabletIndications: Diplopia Take 1 tablet (5 mg) by mouth 1 time for 1 dose To take 30 minutes prior to MRI, 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 have a hydraulic lift driver 1 tablet 09/03/19 25 Active donepezil (Aricept) 5 MG tabletIndications: Altered mental status, unspecified altered mental status type Take 1 tablet (5 mg) by mouth at bedtime 30 tablet 1 06/11/19 25 025 Discontinued Active Problems Problem Noted Date Diagnosed Date 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 He was given this diagnosis in 2016. Does well on MMSE testing. Memory issues are intermittent. ?sleep apnea contribution. Check other labs. Assessment & Plan (06/01/2023 12:29 PM EST): Dementia worsening. Suspect sleep apnea contributing to this issue as well. Will get this testing scheduled. Depression 09/12/2022 Assessment & Plan (09/12/2022 11:27 AM EDT): Good control on the celexa. Cont for now. Diverticulosis large intesti ne w/o perforation or abscess w/bleeding 09/12/2022 Assessment & Plan (09/12/2022 11:26 AM EDT): Last scope 08/30/20. No issues. Hypercholesteremia 09/12/2022 Assessment & Plan (09/12/2022 11:27 AM EDT): Controlled on Crestor. Labs 09/29. Obesity (BMI 30-39.9) 09/12/2022 Recurrent major depressive disorder, in full rem ission 09/12/2022 Assessment & Plan (09/21/2023 5:07 PM EDT): Well controlled on the celexa. Assessment & Plan (06/01/2023 12:22 PM EST): Well controlled on the celexa. Assessment & Plan (09/12/2022 11:28 AM EDT): Doing well on celexa. Obesity, morbid 09/12/2022 Benign essential hypertension 05/24/2018 Assessment & Plan (02/21/2024 6:19 PM EST): Stable BP on no medications. Assessment & Plan (09/21/2023 5:06 PM EDT): Stable BP on no medications. Assessment & Plan (06/01/2023 12:21 PM EST): Stable BP on no medications. Assessment & Plan (09/12/2022 11:25 AM EDT): On no meds and BP is controlled. Hyperlipidemia 05/24/2017 Assessment & Plan (09/21/2023 5:07 PM EDT): Controlled on crestor. Assessment & Plan (06/01/2023 12:22 PM EST): Controlled on crestor. Obstructive sleep apnea 05/24/2017 Assessment & Plan (02/21/2024 6:19 PM EST): Doing great on the CPAP. Compliant with CPAP every night. Assessment & Plan (09/21/2023 5:06 PM EDT): Promises to get this treated. He is going to take machine to [facility] to make sure settings are correct. Assessment & Plan (06/01/2023 10:48 AM EST): Has not been using his CPAP. He did not like the mask he had. He is having many symptoms that could be attributed to sleep apnea. He agrees to consider a repeat sleep study but only if we can do at home. He understands many of the symptoms he is having could be due to this diagnosis and Assessment & Plan (09/12/2022 11:24 AM EDT): Compliant with CPAP and should continue to use nightly. Encounters Date Type Department Care Team Description 09/02/2024 Telephone CALEB PALACIOS [address] [place] [phone] [place], [place] Rx for MRI Claustrophobia 08/27/2024 9:40 AM EDT Office Visit CALEB PALACIOS [address] [place] [address] [phone] Rosanna Jacome PA TIA (transient ischemic attack) (Primary Dx); Hyperlipidemia, unspecified hyperlipidemia type (CMS/HCC); Diplopia 08/27/2024 Bamboo flowsheet CALEB WISHRAM [address] [phone] Rosanna Jcaome PA 08/12/2024 External Result Encounter [facility] External Department Unsolicited Rosanna Jacome PA 08/05/2024 Refill [facility] [address] [facility] [phone] Pallavi Hoskins NP Altered mental status, unspecified altered mental status type 07/30/2024 4:20 PM EDT Office Visit CALEB PALACIOS [address] [phone] Rosanna Jacome PA TIA (transient ischemic attack) (Primary Dx); Hyperlipidemia, unspecified hyperlipidemia type (CMS/HCC); Diplopia 07/30/2024 Bamboo flowsheet CALEB WISHRAM [address] [phone] Rosanna Jacome PA 06/10/2024 Refill [facility] [address] [place] [facility] [place] [phone] Pallavi Hoskins NP Altered mental status, unspecified altered mental status type 06/10/2024 Refill [facility] [address] [facility] [phone] Katherine Rudd NP Recurrent major depressive disorder, in full remission (CMS/HCC); Mixed hyperlipidemia (CMS/HCC) 06/10/2024 Refill [facility] [address] [facility] [place] [phone] Kay Baer MD Altered mental status, unspecified altered mental status type from Last 3 Months Immunizations Immunization Administration Dates Next Due Pfizer Purple Cap SARS-CoV-2 Vaccination 021,05/31/2020,05/10/2020 Pneumococcal Conjugate PCV 13 03/18/2019, 018 Pneumococcal Conjugate PCV 20 09/21/2023 Pneumococcal Polysaccharide PPSV23 11/29/2015 Pneumococcal, Unspecified 11/29/2015 Tdap 04/09/2008 Zoster, live 04/15/2014 Family History Medical History Relation Name Comments Alzheimer's disease Father Parkinsonism Father Prostate cancer Father Parkinsonism Mother Relation Name Status Comments Father Mother Social History Tobacco Use Types Packs/Day Years [...] PM EDT Sexual Orientation Not on file Last Filed Vital Signs Vital Sign Reading Time Taken Comments Blood Pressure 160/90 08/27/2024 9:40 AM EDT Pulse 58 08/27/2024 9:40 AM EDT Temperature 36.1 C (96.9 F) 09/21/2023 10:51 AM EDT Respiratory Rate 16 08/27/2024 9:40 AM EDT Oxygen Saturation 94% 08/27/2024 9:40 AM EDT Inhaled Oxygen Concentration - - Weight 113 kg (249 lb) 08/27/2024 9:40 AM EDT Height 175.3 cm (5' 9 ) 08/27/2024 9:40 AM EDT Body Mass Index 36.77 08/27/2024 9:40 AM EDT Plan of Treatment Upcoming Encounters Date Type Department Care Team (Late st Contact Info) Description 11/19/2024 11:00 AM EDT Office Visit CALEB PALACIOS [address] [place] [phone] Alejandro Cespedes DO [address] [place] [address] Health Maintenance Due Date Last Done Comments CT Colonography 1950 FIT-DNA 1950 FIT 1950 FOBT 1950 Sigmoidoscopy 1950 Influenza Vaccine (Season Ended) 2024 Colonoscopy 08/30/2030 08/30/2020, 08/15/2012 Colorectal Cancer Screening 08/30/2030 Pneumococcal Vaccine: 65+ Years Completed 09/21/2023, 03/18/2019, 05/31/2017, Additional history exists Procedures Procedure Name Priority Date/Time Associated Diagnosis Comments ACETYLCHOLINE RECEPTOR, BINDING Routine 08/12/2024 3:25 PM EDT COLONOSCOPY Routine 08/30/2020 12:00 PM EDT from Last 3 Months or Most Recently Relevant to Health Maintenance Results * Acetylcholine receptor, binding (08/12/2024 3:25 PM EDT) ACETYLCHOLINE RECEPTOR BINDING ANTIBODY <0.30 nmol/L [facility] Comment: Reference Ranges for Acetylcholine Receptor Binding Antibody: Negative: < or =0.30 nmol/L Equivocal: 0.31-0.49 nmol/L Positive: > or =0.50 nmol/L 08/12/2024 3:25 PM EDT 08/12/2024 3:27 PM EDT Narrative Resulting Agency Comment Performing Organization Information Site ID: [id number] Name: [employer], Address: [address] [place] [phone] Director: Briana Mcdonough MD,PhD,DANTE us Rosanna SALDIVAR LAB BLOOD ORDERABLES Final Resul t [facility] * Colonoscopy (08/30/2020 12:00 PM EDT) Anatomical Region Laterality Modality Endoscopy 08/30/2020 12:0 0 PM EDT Narrative 08/30/2020 12:00 PM EDT PERFORMED AT [facility] LOCATION:[id number] Procedure Note CONVERSION, GENERIC - 08/23/2022 PERFORMED AT [facility] LOCATION:[id number] Kay Baer MD ENDOSCOPY PROCEDURE ORDERABLE S Final Result from Last 3 Months or Most Recently Relevant to Health Maintenance Insurance CHAR MED[employer]ARE ADVANTAGE Care Teams Tipple Worker Relationship Specialty Start Date End Date Kay Baer MD [address] [place] [address] PCP - General Family Medicine 09/12/22 Kay Baer MD [address] [place] [address] PCP - Char RODRIGUEZ 04/09/23
--- OUTSIDE RECORDS SUMMARY | 2024-09-03 09:18 | XMS_ITS | Encounter Summary ---
Author Organization [facility] Address [address] [place] [address] Care Team Providers Care Paper And Pulp Mill Worker Name Role Phone Kay Baer MD Primary Care Provider Kay Baer MD Unavailable [phone] Reason for Visit * Reason Comments Med Refill Encounter Details Date Type Department Care Team (Late st Contact Info) Description 06/10/2024 Refill [facility] [address] [place] [phone] Pallavi Hoskins NP [address] [place], [place] [phone] Altered mental status, unspecified altered mental status type Social History Tobacco Use Types Packs/Day Years [...] 11:00 AM EDT Office Visit CALEB PALACIOS [address] [place] [phone] Alejandro Cespedes DO [address] [place] [phone] documented as of this encounter Visit Diagnoses Diagnosis Altered mental status, unspecified altered mental status type documented in this encounter Additional Health Concerns Assessment Noted Time PHQ-9 Depression Total Score: 4 09/21/19 24 10:00 AM EDT documented as of this encounter Care Teams Paper And Pulp Mill Worker Relationship Specialty Start Date End Date Kay Baer MD [address] [place] [address] PCP - General Family Medicine 09/12/22 Kay Baer MD [address] [place] [address] PCP - Char RODRIGUEZ 04/09/23 documented as of this encounter
--- OUTSIDE RECORDS SUMMARY | 2024-09-03 09:18 | XMS_ITS | Encounter Summary ---
Author Organization [facility] Address [address] [facility] [place] [address] Care Team Providers Care State Superintendent Of [employer] Name Role Phone Kay Baer MD Primary Care Provider [phone] January Snyder MD Unavailable Kay Thomas RN Unavailable [phone] Kay Baer MD Unavailable Encounter Details Date Type Department Care Team (Late st Contact Info) Description 09/14/2022 Abstract [facility] [address] [place] [phone] Kay Baer MD [address] [place], [place] [phone] Social History Tobacco Use Types Packs/Day Years [...] 11:00 AM EDT Office Visit CALEB PALACIOS [address] [place] [phone] Alejandro Cespedes DO [address] [place] [phone] documented as of this encounter Visit Diagnoses Not on filedocumented in this encounter Additional Health Concerns Assessment Noted Time PHQ-9 Depression Total Score: 0 09/13/19 23 9:00 AM EDT documented as of this encounter Care Teams State Superintendent Of [employer] Relationship Specialty Start Date End Date Kay Baer MD [address] [place] [address] PCP - General Family Medicine 09/12/22 January Snyder MD [address] [place], [place] [phone] PCP - Char RODRIGUEZ 09/07/22 04/08/23 Kay Baer MD [address] [place] [address] PCP - Char RODRIGUEZ 04/09/23 Kay Thomas, RN Registered Nurse Family Medicine 06/01/23 02/04/24 documented as of this encounter
--- OUTSIDE RECORDS SUMMARY | 2024-09-03 09:18 | XMS_ITS | Encounter Summary ---
Author Organization [facility] Address [address] [place] [address] Care Team Providers Care Life Insurance Agent Name Role Phone Kay Baer MD Primary Care Provider [phone] Kay Baer MD Unavailable [phone] Reason for Visit * Reason Onset Date Comments Rx for MRI Claustrophobia 09/02/2024 Encounter Details Date Type Department Care Team ([facility] Contact Info) Description 09/02/2024 Telephone CALEB PALACIOS [address] [facility] [address] [place] [phone] [place] Rx for MRI Claustrophobia Social History Tobacco Use Types Packs/Day Years [...] encounter Miscellaneous Notes * Telephone Encounter - Bushra Coelho MA - 09/02/2024 2:20 PM EDT [facility] number provided [facility] * Telephone Encounter - NOVA Fletcher - 09/02/2024 1:11 PM EDT Female caller left message requesting medication be sent to help with MRI that is scheduled tomorrow morning. She would like a return call to know it was sent. (Patient advised to call to schedule brain MRI; he can reach out to our office for medication to help with claustrophobia once he has the scheduled date .... Per Rosanna SALDIVAR on 08/27/24) documented in this encounter Plan of Treatment Upcoming Encounters Date Type Department Care Team (Late st Contact Info) Description 11/19/2024 11:00 AM EDT Office Visit CALEB PALACIOS [address] [place] [phone] Alejandro Cespedes DO [address] [place], [place] [phone] documented as of this encounter Visit Diagnoses Not on filedocumented in this encounter Additional Health Concerns Assessment Noted Time PHQ-9 Depression Total Score: 4 09/21/19 24 10:00 AM EDT documented as of this encounter Care Teams Life Insurance Agent Relationship Specialty Start Date End Date Kay Baer MD [address] [place] [address] PCP - General Family Medicine 09/12/22 Kay Baer MD [address] [facility] [place] [address] PCP - Char RODRIGUEZ 04/09/23 documented as of this encounter
--- NOTE | 2024-09-03 09:19 | MR_ITS ---
The [address] [address] Patient Name: YAIMA VIGIL MRN: [id number] date: 1950 Sex: M Assigned Patient Location: MRI Current Patient Location: MRI Accession/Order Number: [id number] Exam Date: 09/03/2024 10:59 Report Date: 09/03/2024 11:03 At the request of: CELINE SALDIVAR Procedure: MR head/brain wo con MR head/brain wo con 09/03/2024 10:16 AM SIGN AND SYMPTOMS: ^Diplopia, scattered T2 FLAIR hyperintensities on prior MRI, follow-up PROTOCOL: Multiplanar multisequence MR images of the brain were obtained without IV contrast COMPARISON: 04/22/2024 FINDINGS: Extra axial spaces: There is mild age-related cortical atrophy similar to the prior exam. Hemorrhage: None. Ventricular system: Within normal limits. Basal cisterns: Within normal limits and not effaced. Cerebral parenchyma: Scattered T2 and FLAIR hyperintense foci are noted consistent with chronic microvascular ischemic change. Midline shift: None.. Cerebellum: Within normal limits. Brainstem: Within normal limits. OTHER: Calvarium: Normal marrow signal. Vascular system: Satisfactory flow voids within the anterior and posterior circulation. Visualized Paranasal sinuses: Within normal limits. Visualized Orbits: Within normal limits. Visualized upper cervical spine: Within normal limits. Sella and skull base: Within normal limits. MR/MR head/brain wo con IMPRESSION: No acute intracranial pathology. Similar chronic microvascular changes are noted with mild age-related cortical atrophy. Impression dictated by: Yaima Phipps M.D. 09/03/2024 11:03 AM Dictation Location: [place] [address] Electronically authenticated by: [id number] Y Date: 09/03/2024 11:03
== END 2024-09-03 09:18 | disposition home or self-care (01) ==
LOC: MRI 09:17
PROVIDERS: PCP Family Medicine; Visit Provider Physician Assistant
DX: H53.2 Diplopia (principal)
CPT/HCPCS: 70551

== ENCOUNTER 2025-02-21 15:47 | Emergency (ER) | payer MEDICARE, SELFPAY ==
[2025-02-21] VITALS (18 sets, daily range): BP systolic 86–154; BP diastolic 65–87; PULSE 85–95; TEMP 37.5–37.9; O2SAT 93–95; BMI 37.3
--- NOTE | 2025-02-21 16:20 | ECG_ITS ---
The [facility] Test Date: 2025-02-21 Pat Name: YAIMA VIGIL Department: Room: - Gender: Male Front Office Administrator: : 1950 Requested By: Order Number: [id number] Reading MD: PHILIP MANUEL M.D. Measurements Intervals War Rate: 92 P: 33 TN: 164 QRS: -33 QRSD: 94 T: 60 QT: 350 QTc: 400 Interpretive Statements 1100 Sinus rhythm 2440 Incomplete right bundle branch block NONSPECIFIC ST DEPRESSION 7200 Abnormal left axis deviation 9130 borderline ECG Compared to ECG 04/21/2024 17:17:15 Incomplete right bundle-branch block now present Electronically Signed On 02-21-2025 18:19:05 EST by PHILIP MANUEL M.D.
--- NOTE | 2025-02-21 16:20 | XR_ITS ---
[place] [id number] Patient Name: YAIMA VIGIL MRN: [id number] date: 1950 Sex: M Assigned Patient Location: ER Current Patient Location: ED.MAIN Accession/Order Number: [id number] Exam Date: 02/21/2025 16:30 Report Date: 02/21/2025 17:27 At the request of: FREDI ELI MD Procedure: XR chest 1V Plain film chest Single view HISTORY: Shortness of breath COMPARISON: 04/21/2024 FINDINGS: SUPPORT DEVICES: None POSTSURGICAL CHANGES: None HEART: Within normal limits PULMONARY WOODROW: Within normal limits MEDIASTINUM: Unremarkable LUNGS AND PLEURA: No acute lung process, pleural effusion or pneumothorax identified. Moderate right hemidiaphragm elevation BONY STRUCTURES: Intact ADDITIONAL FINDINGS None XR/XR chest 1V IMPRESSION: No acute process. Impression dictated by: Fredi Fan M.D. 02/21/2025 5:27 PM Dictation Location: [facility] Electronically authenticated by: [id number] Y Date: 02/21/2025 17:27
--- NOTE | 2025-02-21 16:34 | CT_ITS ---
[address] [address] Patient Name: YAIMA VIGIL MRN: [id number] date: 1950 Sex: M Assigned Patient Location: ER Current Patient Location: ED.MAIN Accession/Order Number: [id number] Exam Date: 02/21/2025 17:10 Report Date: 02/21/2025 17:25 At the request of: FREDI ELI MD Procedure: CT head/brain wo con Unenhanced head CT TECHNIQUE: Contiguous axial imaging of the head. The CT exam was performed using one or more the following dose reduction techniques: Automated exposure control, adjustment of the MA and/or Kv according to patient size, or use of the iterative reconstruction technique. COMPARISON: MRI the brain 08/26/2024 HISTORY: Altered mental status VENTRICLES: Within normal limits ATROPHY: Similar atrophy BRAIN PARENCHYMA: Decreased density of the white matter is most consistent with chronic small vessel disease. HEMORRHAGE: None HERNIATION: No mass effect or herniation INFARCTION: No recent vascular distribution infarction is seen. EXTRA-AXIAL FLUID COLLECTIONS None MIDBRAIN: Unremarkable LAURA: Unremarkable MEDULLA: Unremarkable SINUSES: Unremarkable ORBITS: Grossly unremarkable MASTOIDS: Unremarkable BONY STRUCTURES Intact ADDITIONAL FINDINGS: CT/CT head/brain wo con IMPRESSION: No acute findings. Impression dictated by: Fredi Fan M.D. 02/21/2025 5:25 PM Dictation Location: [place] [address] Electronically authenticated by: [id number] Y Date: 02/21/2025 17:25
--- OUTSIDE RECORDS SUMMARY | 2025-02-21 16:42 | XMS_ITS | CCD ---
Author Organization [facility] Care Team Providers Care Embedded Software Engineer Name Role Phone LAKESHA FRY Admitting Unavailable LAKESHA FRY Attending Unavailable MISC, DOCTOR Primary Care Unavailable DIMA MUNSON Consulting Unavailable LAKESHA FRY Consulting Unavailable KAY SALEEM Referring Unavailable LEYLA BAJWA Primary Care Unavailab Kay Montalvo MD Primary Care Provider Kay Saleem MD Unavailable Kay Thomas RN Unavailable CHUCK NEWMAN Attending Unavailable LEYLA BAJWA Referring Unavailab le BAJWA, LEYLA Anne Primary Care Unavailab CHUCK Galan Attending Unavailable LEYLA BAJWA Referring Unavailab le NELLIE, LEYLA Anne Primary Care Unavailab KAY Montalvo Primary Care Unavailable BAJWA, LEYLA Anne Referring Unavailab le BAJWA, LEYLA Anne Primary Care Unavailab le NELLIE, LEYLA Anne Primary Care Unavailab KAY Montalvo Referring Unavailable KAY SALEEM Primary Care Unavailable Bajwa EXERCISER HORSE-NEON SIGN ERECTOR, Leyla Anne Primary Care Pro vider KAY SALEEM Attending Unavailable CAROLE CESPEDES Attending Unavailable ROSANNA JACOME Attending Unavailable ROSANNA JACOME Attending Unavailable LEYLA BAJWA Attending Unavailab GAURAV Stephen Attending Unavailable KAY SALEEM Referring Unavailable MARY SALDANA Attending Unavailable KAY SALEEM Attending Unavailable CARLOS BAUGH Attending Unavailable KAY SALEEM Referring Unavailable KAY SALEEM Attending Unavailable Carole Cespedes DO Attending Provider Jaime Saleem MD, Kay Conley Primary Care Pr ovider Allergies Allergy ClassificationReported Allergen(s)Allergy TypeDate of OnsetReaction(s) Facility (20 sources)atorvastatin; Translations: [ATORVASTATIN]Drug [id number] [facility] (9 sources)Simvastatin; Translations: [SIMVASTATIN]Drug Gzjwnjo77-35-0541 [facility] Medications Current Medications MedicationDrug Class(es)DatesSig (Normalized)Sig (Original)aspirin 81 mg oral tablet (20 sources)Platelet Aggregation Inhibitor, Nonsteroidal Anti-inflammatory Drug Start: 69-25-7721bumj 1 tablet by mouth once dailyAspirin 81 mg tablet Active 81 MG PO Daily December 17, 2024 12:00am Complies with drug therapyStart: 59-50-7318fezq 1 tablet by mouth once dailyBayer Low Dose 81 MG EC tablet Take 81 mg by mouth Daily 04/22/2024 Activecalcium ascorbate 500 mg oral tablet (1 source)Start: 53-47-6956jdzd 1 tablet by mouth once dailyAscorbate Calcium (Vitamin C) 500 mg tablet Active 500 MG PO Daily December 17, 2024 12:00am Complies with drug therapycitalopram 40 mg oral tablet (20 sources)Serotonin Reuptake InhibitorStart: 05-70-0223Xisbxvwbsu 40 mg tablet Active 20 MG PO Daily December 17, 2024 12:00am Complies with drug therapy Start: 54-39-0671hbai 1 tablet by mouth once dailycitalopram (CeleXA) 40 MG tablet Indications: Recurrent major depressive disorder, in full remission Take 1 tablet (40 mg) by mouth Daily 90 tablet 1 06/10/2024 ActiveStart: 07-02-2023 take 1 tablet by mouth in the morningcitalopram (CeleXA) 40 MG tablet Indications: Recurrent major depressive disorder, in full remission (CMS/HCC) TAKE 1 TABLET(40 MG) BY MOUTH IN THE MORNING 90 tablet 1 12/28/2023 Active diazePAM 5 mg oral tablet (7 sources)BenzodiazepineStart: 35-96-4618insefSBJ (Valium) 5 MG tablet Indications: Diplopia Take 1 tablet (5 mg) by mouth 1 time for 1 doseTo take 30 minutes prior to MRI, 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 1 tablet 09/02/2024 Activedonepezil hydrochloride 5 mg oral tablet (20 sources)Start: 54-56-7442zzxl 1 tablet by mouth once dailyDonepezil 5 mg tablet Active 5 MG PO Daily December 17, 2024 12:00am Complies with drug therapyStart: 02-21-2024 End: 10-65-2523ucdo 1 tablet by mouth at bedtimedonepezil (Aricept) 5 MG tablet Indications: Altered mental status, unspecified altered mental status type TAKE 1 TABLET(5 MG) BY MOUTH AT BEDTIME 30 tablet 1 10/02/2024 ActiveStart: 03-19-2019 End: 49-89-3791vhim 1 tablet by mouth at bedtimedonepezil (Aricept) 10 MG tablet Indications: 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 Activegarlic 100 mg tablet Take by mouth. Activegarlic 100 mg tablet Take by mouth. 0 Activeibuprofen 600 mg oral tablet (20 sources)Nonsteroidal Anti-inflammatory DrugStart: 85-53-4299opsn 1 tablet by mouth every six hours for painibuprofen 600 MG tablet TAKE 1 TABLET BY MOUTH EVERY 6 HOURS FOR PAIN 12/05/2023 ActiveMagnesium (1 source)Start: 18-34-7826xsva 1 tablet by mouth once dailyMagnesium 200 mg tablet Active 200 MG PO Daily December 17, 2024 12:00am Complies with drug therapymelatonin 3 mg oral capsule (20 sources)Start: 34-90-4513pewt 1 capsule by mouth once daily at bedtime as neededMelatonin 3 mg capsule Active 3 MG PO Daily at bedtime as needed December 17, 2024 12:00am Complies with drug therapytake 2 tablets by mouth at bedtime melatonin 5 MG tablet Take 10 mg by mouth at bedtime Activetake 1 tablet by mouth at bedtimemelatonin 5 MG tablet Take 5 mg by mouth at bedtime. Active Multiple Vitamin (multivitamin) capsule (20 sources)take 1 capsule by mouth once dailyMultiple Vitamin (multivitamin) capsule Take 1 capsule by mouth Daily ActiveMultivitamin preparation (7 sources)multivitamin (MULTI-DAY ORAL) Take by mouth. Activemultivitamin (MULTI-DAY ORAL) Take by mouth. 0 Activenutritional supplement/fiber (IRHPBH-RUDW-ULRF ORAL) (7 sources)nutritional supplement/fiber (BJEUGL-KWIE-KCGE ORAL) Take by mouth. Activenutritional supplement/fiber (JMFQNV-EZZH-RRIE ORAL) Take by mouth. 0 Activerosuvastatin calcium 10 mg oral tablet (20 sources)HMG-CoA Reductase InhibitorStart: 30-91-2345xgbq 1 tablet by mouth once dailyrosuvastatin (Crestor) 10 MG tablet Indications: Mixed hyperlipidemia Take 1 tablet (10 mg) by mouth Daily 90 tablet 1 06/10/2024 ActiveStart: 83-75-8623aapl 1 tablet by mouth in the morningrosuvastatin (Crestor) 10 MG tablet Indications: Mixed hyperlipidemia (CMS/HCC) TAKE 1 TABLET(10 MG) BY MOUTH IN THE MORNING 90 tablet 1 12/28/2023 ActiveStart: 35-26-7247dwgt 1 tablet by mouth in the morningrosuvastatin (Crestor) 10 MG tablet Indications: Mixed hyperlipidemia (CMS/HCC) TAKE 1 TABLET(10 MG) BY MOUTH IN THE MORNING 90 tablet 1 07/02/2023 ActiveStart: 86-34-9565wycw 1 tablet by mouth in the morning rosuvastatin (CRESTOR) 5 mg tablet Take 1 tablet (5 mg total) by mouth in the morning. 03/18/2019 ActiveUbidecarenone-[place] 3-Vit E (Co E-65-Mojwrrx E-Fish Oil) 25-150-200 mg-mg-unit capsule (1 source)Start: 46-27-1842xbhs 1 capsule by mouth once dailyUbidecarenone-[place] 3-Vit E (Co X-07-Abvkpit E-Fish Oil) 25-150-200 mg-mg-unit capsule Active 1 CAP PO Daily December 17, 2024 12:00am Complies with drug therapy Completed/Discontinued Medications MedicationDrug Class(es)DatesSig (Normalized)Sig (Original)memantine hydrochloride 10 mg oral tablet (10 sources)L-xeiyvb-I-aspartate Receptor AntagonistStart: 07-09-2023 End: 45-83-8605dmkn 1 tablet by mouth in the morningmemantine (Namenda) 10 MG tablet Indications: 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, psychotic disturbance, mood disturbance, or anxiety (CMS/HCC) Take 1 tablet (10 mg)by mouth in the morning and 1 tablet (10 mg) before bedtime. 180 tablet 1 07/09/2023 12/20/2023 Discontinued (Ineffective)take 1 tablet by mouth in the morning, then take 1 tablet by mouth at bedtimememantine (NAMENDA) 5 mg tablet Take 1 tablet (5 mg total) by mouth in the morning and 1 tablet (5 mg total) before bedtime. Active Problems Active Problems Problem ClassificationProblemDateDocumented DateEpisodic/ChronicAcute cerebrovascular disease (1 source)Acute cerebrovascular diseaseOnset: 42-96-9538Stilxuvlc and vision defects (10 sources)Diplopia; Translations: [Diplopia]10-73-4396AsqndefyZjowqolk, dementia, and amnestic and other cognitive disorders (20 sources)Presenile dementia; Translations: [Alzheimer's disease with early onset]Onset: 279259-00-3731WotwwbjEevtsmmsd of lipid metabolism (20 sources)Hypercholesterolemia; Translations: [Pure hypercholesterolemia, unspecified]Onset: 695244-68-9354HcgepbcBrjcodydf hypertension (20 sources)Essential (primary) hypertension; Translations: [Benign essential hypertension]Onset: 695397-57-9651GpfoiaeBpku disorders (20 sources)Depressive disorder; Translations: [Depression]Onset: 08-03-2020 31-56-8309OgsjeooUvvoyjqckjv chest pain (4 sources)Chest pain, unspecified; Translations: [Other chest pain]Onset: 56-58-7073ZlntpfwmHxhng connective tissue disease (2 sources)Muscle weakness; Translations: [Muscle weakness (generalized)] 39-73-5685MzvlkwioQpois ear and sense organ disorders (20 sources)Hearing loss; Translations: [Unspecified hearing loss, unspecified ear]Onset: 511156-33-0899MoevolzKvfqr ear and sense organ disorders (20 sources)Asymmetrical sensorineural hearing loss; Translations: [Sensorineural hearing loss, bilateral]Onset: 288507-21-8870QikhgljJppso ear and sense organ disorders (3 sources)Bilateral hearing loss; Translations: [Unspecified hearing loss, bilateral]89-36-0555FedpfndOubtr nutritional; endocrine; and metabolic disorders (1 source)Obesity, unspecified; Translations: [OBESITY UNSPECIFIED]Onset: 58-37-4649QyfhuqrZjtfp nutritional; endocrine; and metabolic disorders (1 source)Body mass index (BMI) 37.0-37.9, adult; Translations: [BODY MASS INDEX BMI 37.0-37.9 ADULT]Onset: 67-47-4222GyllwhkIyuve nutritional; endocrine; and metabolic disorders (20 sources)Body mass index 30+ - obesity; Translations: [Obesity, unspecified] Onset: 433074-36-9995QgdibfoUbwzl nutritional; endocrine; and metabolic disorders (20 sources)Morbid obesity; Translations: [Morbid (severe) obesity due to excess calories]Onset: 449924-61-7434VglqrmzSocbn nutritional; endocrine; and metabolic disorders (1 source)Severe obesity; Translations: [Class 2 severe obesity due to excess calories with serious comorbidity and body mass index (BMI) of 37.0 to 37.9 in adult ([facility])]80-09-4047PkfyvjmJvttq screening for suspected conditions (not mental disorders or infectious disease) (4 sources)Patient encounter status; Translations: [Encounter for screening for malignant neoplasm of prostate]44-98-5483SaqfsqtgYzypnjkt codes; unclassified (2 sources)Obstructive sleep apnea (adult) (pediatric); Translations: [Obstructive sleep apnea (adult) (pediatric)]Onset: 03-29-0249IamhqiaXuajdlfn codes; unclassified (20 sources)Obstructive sleep apnea syndrome; Translations: [Obstructive sleep apnea (adult) (pediatric)]Onset: 830631-84-9492YckzgolPgewejsh codes; unclassified (8 sources)Sleep apnea; Translations: [Sleep apnea, unspecified]Onset: 535044-60-2471HogtiggDwwzzojj codes; unclassified (4 sources)Altered mental status; Translations: [Altered mental status, unspecified]51-75-6275LzmlmyohDecpdngz codes; unclassified (2 sources)Amnesia; Translations: [Other amnesia]09-69-6301BmxofftkCvpufkvk codes; unclassified (1 source)Pain, unspecified; Translations: [Pain, unspecified]Onset: 04-28-2024 EpisodicTransient cerebral ischemia (10 sources)Transient cerebral ischemia; Translations: [Transient cerebral ischemic attack, unspecified]23-27-9572RovcevxIodammjarqcb (1 source)New PatientOnset: 43-28-8651Mhqtf infection (2 sources)COVID-19; Translations: [Other encephalopathy]18-74-9761Vavwqjn Past or Other Problems Problem ClassificationProblemDateDocumented DateEpisodic/ChronicDiverticulosis and diverticulitis (20 sources)Intestinal hemorrhage with diverticulosis; Translations: [Diverticulosis of large intestine withoutperforation or abscess with bleeding] Onset: 09-12-2022 Resolved: 232686-82-9756OyokpweQaezevma; including migraine (20 sources)Occipital headache; Translations: [Occipital headache]Onset: 09-21-2023 Resolved: 845575-95-7500DyhsrcyxAbnq disorders (20 sources)Mood disordersOnset: 384137-67-3582Mqykl ear and sense organ disorders (20 sources)Device status; Translations: [Encounter for fitting and adjustment of hearing aid]Onset: 09-21-2023 Resolved: 206438-65-7523JynwryxfOotas upper respiratory disease (20 sources)Dysphonia; Translations: [Dysphonia]Onset: Episodic Results Test NameValueInterpretationReference RangeFacilityCBC W Auto Differential panel (Bld)on 77-66-8142Hqhgetyph (Bld) [#/Vol]21 10*3/uLNOMS HealthcareBasophils/100 WBC (Bld)0.4 %NOMS HealthcareEosinophils (Bld) [#/Vol]52 10*3/uLNOResearch Medical Center Eosinophils/100 WBC (Bld)1 %[facility] HospitalErythrocyte distribution width (RBC) [Ratio]13.8 %11.0 - 15.0 %[facility] HospitalHematocrit (Bld) [Volume fraction]42.9 %38.5 - 50.0 %[facility] HospitalHemoglobin (Bld) [Mass/Vol]14.1 g/dL13.2 - 17.1 g/dLCedar County Memorial HospitalLymphocytes (Bld) [#/Vol]1305 10*3/uLNOResearch Medical Center Lymphocytes/100 WBC (Bld)25.1 %[facility] HospitalMCH (RBC) [Entitic mass]31.9 pg 27.0 - 33.0 pgCedar County Memorial HospitalMCHC (RBC) [Mass/Vol]32.9 g/dL32.0 - 36.0 g/dLCedar County Memorial HospitalComment on above:For adults, a slight decrease in the calculated MCHC value (in the range of 30 to 32 g/dL) is most likely not clinically significant; however, it should be interpreted with caution in correlation with other red cell parameters and the patient's clinical condition. MCV (RBC) [Entitic vol]97.1 fL80.0 - 100.0 fLCedar County Memorial HospitalMonocytes (Bld) [#/Vol]489 10*3/uLNOMS Genesis HospitalMonocytes/100 WBC (Bld)9.4 %[facility] Neutrophils (Bld) [#/Vol]3333 10*3/uLNOMS Genesis HospitalNeutrophils/100 WBC (Bld) 64.1 %[facility] HospitalPlatelet mean volume (Bld) [Entitic vol]10.6 fL7.5 - 12.5 fLCedar County Memorial HospitalPlatelets (Bld) [#/Vol]137 10*3/uLLowRIVERTON HOSPITAL HealthcareRBC (Bld) [#/Vol]4.42 10*6/uLNOResearch Medical CenterWBC (Bld) [#/Vol]5.2 10*3/uLNOResearch Medical Center Laboratory - Chemistry and Chemistry - challengeon 86-00-3985Ehujary [Mass/Vol] 4.9 g/dL3.6 - 5.1 g/dLCedar County Memorial HospitalAlbumin/Globulin [Mass ratio]2.1 {ratio} NOMS HealthcareALP [Catalytic activity/Vol]61 U/L35 - 144 U/LNOMS HealthcareALT [Catalytic activity/Vol]24 U/L9 - 46 U/LNOMS HealthcareAST [Catalytic activity/Vol]24 U/L10 - 35 U/LNOMS HealthcareBilirubin [Mass/Vol]0.6 mg/dL0.2 - 1.2 mg/dLNOMS HealthcareCalcium [Mass/Vol]9.3 mg/dL8.6 - 10.3 mg/dLNOMS HealthcareChloride [Moles/Vol]104 mmol/L98 - 110 mmol/LNOMS HealthcareCO2 [Moles/Vol]26 mmol/L20 - 32 mmol/LNOMS HealthcareCreatinine [Mass/Vol]0.81 mg/dL 0.70 - 1.28 mg/dLNODE HealthcareGFR/1.73 sq M.predicted among non-blacks MDRD (S/P/Bld) [Vol rate/Area]93 mL/min/{1.73_m2}> OR = 60 mL/min/1.54x1EJYM HealthcareGlobulin (S) [Mass/Vol]2.3 g/dLNODE HealthcareGlucose [Mass/Vol]131 mg/sARizu67 - 99 mg/dLNODE HealthcareComment on above: Fasting reference interval For someone without known diabetes, a glucose value >125 mg/dL indicates that they may have diabetes and this should be confirmed with a follow-up test. Potassium [Moles/Vol]4.3 mmol/L3.5 - 5.3 mmol/LNOMS HealthcareProstate specific Ag [Mass/Vol]0.35 ng/mL< OR = 4.00NODE HealthcareComment on above:The total PSA value from this assay system is standardized against the WHO standard. The test result will be approximately 20% lower when compared to the equimolar-standardized total PSA (Zenia Oneil). Comparison of serial PSA results should be interpreted with this fact in mind. This test was performed using the Siemens chemiluminescent method. Values obtained from different assay methods cannot be used interchangeably. PSA levels, regardless of value, should not be interpreted as absolute evidence of the presence or absence of disease. Protein [Mass/Vol]7.2 g/dL6.1 - 8.1 g/dLNODE HealthcareSodium [Moles/Vol]140 mmol/L135 - 146 mmol/LNOMS HealthcareUrea nitrogen [Mass/Vol]17 mg/dL7 - 25 mg/dLCedar County Memorial HospitalUrea nitrogen/Creatinine [Mass ratio]SEE NOTE:[facility] HealthcareComment on above:Not Reported: BUN and Creatinine are within reference range. Lipid 1996 panelon 15-41-6038Xfsmdqsklup [Mass/Vol]153 mg/dLNINF - 200 mg/dLCedar County Memorial HospitalCholesterol in HDL [Mass/Vol]62 mg/dL> OR = 40NOResearch Medical Center Cholesterol in LDL [Mass/Vol]74 mg/dLmg/dL (calc)[facility] HealthcareComment on above:Reference range: <100 Desirable range <100 mg/dL for primary prevention; <70 mg/dL for patients with CHD or diabetic patients with > or = 2 CHD risk factors. LDL-C is now calculated using the Yue calculation, which is a validated novel method providing better accuracy than the Friedewald equation in the estimation of LDL-C. Mario SS et al. JOANNA. 2013;310(19): 6601-7120 (http://education.Intelleflex/faq/BUL127) Cholesterol non HDL [Mass/Vol]91 mg/dLNINFCedar County Memorial HospitalComment on above:For patients with diabetes plus 1 major ASCVD risk factor, treating to a non-HDL-C goal of <100 mg/dL (LDL-C of <70 mg/dL) is considered a therapeutic option. Cholesterol.total/Cholesterol in HDL [Mass ratio]2.5 {ratio}[facility] Triglyceride [Mass/Vol]90 mg/dLNINF - 150 mg/dLCedar County Memorial HospitalNo Panel Informationon 06-17-6399Jgtebqltgxarab and review of laboratory resultsAbnormal [facility] HealthcarePerforming Organization Information Site ID: QPT Name: [facility] Address: [address] [place] [address], [address] [place] [id number] Director: Asael Mcarthur MDBeloit Memorial Hospital HEAD/BRAIN WO CONon 18-46-65[address] [address] Magnetic Resonance Report Signed Patient: YAIMA LESTER MR#: [id number] : 1950 Acct:[id number] Age/Sex: 74 / M ADM Date: 09/03/24 Loc: MRI Attending Dr: Rosanna SALDIVAR Ordering Physician: Rosanna Jacome Date of Service: 09/03/24 Procedure(s): MR head/brain wo con Accession Number(s): [id number] cc: KAY SALEEM ; Rosanna Jacome [place] [id number] Patient Name: YAIMA LESTER MRN: [facility]:[id number] date: 1950 Sex: M Assigned Patient Location: MRI Current Patient Location: MRI Accession/Order Number: [id number] Exam Date: 09/03/2024 10:59 Report Date: 09/03/2024 11:03 At the request of: ROSANNA SALDIVAR Procedure: MR head/brain wo con MR head/brain wo con 09/03/2024 10:16 AM SIGN AND SYMPTOMS: Diplopia, scattered T2 FLAIR hyperintensities on prior MRI, follow-up PROTOCOL: Multiplanar multisequence MR images of the brain were obtained without IV contrast COMPARISON: 04/22/2024 FINDINGS: Extra axial spaces: There is mild age-related cortical atrophy similar to the prior exam. Hemorrhage: None. Ventricular system: Within normal limits. Basal cisterns: Within normal limits and not effaced. Cerebral parenchyma: Scattered T2 and FLAIR hyperintense foci are noted consistent with chronic microvascular ischemic change. Midline shift: None.. Cerebellum: Within normal limits. Brainstem: Within normal limits. OTHER: Calvarium: Normal marrow signal. Vascular system: Satisfactory flow voids within the anterior and posterior circulation. Visualized Paranasal sinuses: Within normal limits. Visualized Orbits: Within normal limits. Visualized upper cervical spine: Within normal limits. Sella and skull base: Within normal limits. MR/MR head/brain wo con IMPRESSION: No acute intracranial pathology. Similar chronic microvascular changes are noted with mild age-related cortical atrophy. Impression dictated by: Yaima Phipps M.D. 09/03/2024 11:03 AM Dictation Location: [place] [address] Electronically authenticated by: [id number] Y Date: 09/03/2024 11:03 Dictated By: Yaima Phipps M.D. Signed By: 09/03/24 1105 DD/ 110 TD/TT: Civil Engineering Teacher:TBHRadiology, Radiologist, - 09/03/2024 [place] [address] Magnetic Resonance Report Signed Patient: YAIMA LESTER MR#: [id number] : 1950 Acct:[id number] Age/Sex: 74 / M ADM Date: 09/03/24 Loc: MRI Attending Dr: Rosanna SALDIVAR Ordering Physician: Rosanna Jacome Date of Service: 09/03/24 Procedure(s): MR head/brain wo con Accession Number(s): [id number] cc: KAY SALEEM ; Rosanna Jacome [place] [address] Patient Name: YAIMA LESTER MRN: [facility]:[id number] date: 1950 Sex: M Assigned Patient Location: MRI Current Patient Location: MRI Accession/Order Number: [id number] Exam Date: 09/03/2024 10:59 Report Date: 09/03/2024 11:03 At the request of: ROSANNA SALDIVAR Procedure: MR head/brain wo con MR head/brain wo con 09/03/2024 10:16 AM SIGN AND SYMPTOMS: Diplopia, scattered T2 FLAIR hyperintensities on prior MRI, follow-up PROTOCOL: Multiplanar multisequence MR images of the brain were obtained without IV contrast COMPARISON: 04/22/2024 FINDINGS: Extra axial spaces: There is mild age-related cortical atrophy similar to the prior exam. Hemorrhage: None. Ventricular system: Within normal limits. Basal cisterns: Within normal limits and not effaced. Cerebral parenchyma: Scattered T2 and FLAIR hyperintense foci are noted consistent with chronic microvascular ischemic change. Midline shift: None.. Cerebellum: Within normal limits. Brainstem: Within normal limits. OTHER: Calvarium: Normal marrow signal. Vascular system: Satisfactory flow voids within the anterior and posterior circulation. Visualized Paranasal sinuses: Within normal limits. Visualized Orbits: Within normal limits. Visualized upper cervical spine: Within normal limits. Sella and skull base: Within normal limits. MR/MR head/brain wo con IMPRESSION: No acute intracranial pathology. Similar chronic microvascular changes are noted with mild age-related cortical atrophy. Impression dictated by: Yaima Phipps M.D. 09/03/2024 11:03 AM Dictation Location: [place] [address] Electronically authenticated by: [id number] Y Date: 09/03/2024 11:03 Dictated By: Yaima Phipps M.D. Signed By: 09/03/24 1105 DD/ 1103 TD/TT: Civil Engineering Teacher: [facility] HospitalRadiology Study observation (narrative)[facility] HEAD/BRAIN WO CONOrdered By: Radiologist Radiology on 34-92-6988XNCSCedar County Memorial Hospital Work Phone: ACETYLCHOLINE RECEPTOR BINDING ANTIBODYon 08-16-2024 ACETYLCHOLINE RECEPTOR BINDING ANTIBODY<0.30NormalQuest DiagnosticsComment on above:Result Comment: Reference Ranges for Acetylcholine Receptor Binding Antibody: Negative: < or =0.30 nmol/L Equivocal: 0.31-0.49 nmol/L Positive: > or =0.50 nmol/LPerformed By: #### 206 #### [employer], [address] [place] [address] Engine Turner: Briana Mcdonough MD,PhD,MBAAcetylcholine receptor, bindingon 28-74-3446Xgleikedfgjmq receptor binding Ab (S) [Moles/Vol]<0.30nmol/LNOMS HealthcareComment on above: Reference Ranges for Acetylcholine Receptor Binding Antibody: Negative: < or =0.30 nmol/L Equivocal: 0.31-0.49 nmol/L Positive: > or =0.50 nmol/L Performing Organization Information Site ID: EZ Name: [facility], Address: [address] [place], [place] [address] Director: Briana Mcdonough MD,PhD,Memorial Medical CenterCB panel Auto (Bld)on 39-56-4380Lxhmpxctoru distribution width (RBC) [Ratio]13.3 %11.0 - 15.0 %[facility] HealthcareHematocrit (Bld) [Volume fraction]43.5 %38.5 - 50.0 %[facility] HospitalHemoglobin (Bld) [Mass/Vol]14.4 g/dL13.2 - 17.1 g/dLCedar County Memorial HospitalMCH (RBC) [Entitic mass]31.9 pg27.0 - 33.0 pgCedar County Memorial HospitalMCHC (RBC) [Mass/Vol] 33.1 g/dL32.0 - 36.0 g/dLRIVERTON HOSPITAL HealthcareComment on above:For adults, a slight decrease in the calculated MCHC value (in the range of 30 to 32 g/dL) is most likely not clinically significant; however, it should be interpreted with caution in correlation with other red cell parameters and the patient's clinical condition. MCV (RBC) [Entitic vol]96.2 fL80.0 - 100.0 fLRIVERTON HOSPITAL HealthcarePlatelet mean volume (Bld) [Entitic vol]11 fL7.5 - 12.5 [facility]LRIV[facility] HealthcarePlatelets (Bld) [#/Vol]168 10*3/uLRIVERTON HOSPITAL HealthcareRBC (Bld) [#/Vol]4.52 10*6/uLRIVERTON [facility]OSP[facility] HealthcareWBC (Bld) [#/Vol]5.6 10*3/uLRIVERTON [facility] HealthcareLaboratory - Chemistry and Chemistry - challengeon [id number] [Mass/Vol]4.6 g/dL3.6 - 5.1 g/dLCedar County Memorial Hospital Albumin/Globulin [Mass ratio]2.1 {ratio}[facility] HealthcareALP [Catalytic activity/Vol]71 U/L35 - 144 U/LNOMS HealthcareALT [Catalytic activity/Vol]26 U/L 9 - 46 U/LNOMS HealthcareAST [Catalytic activity/Vol]24 U/L10 - 35 U/LNOMS HealthcareBilirubin [Mass/Vol]0.7 mg/dL0.2 - 1.2 mg/dLNODE HealthcareCalcium [Mass/Vol]9.2 mg/dL8.6 - 10.3 mg/dLRIVERTON HOSPITAL HealthcareChloride [Moles/Vol]103 mmol/L 98 - 110 mmol/LNOMS HealthcareCO2 [Moles/Vol]26 mmol/L20 - 32 mmol/LNOMS HealthcareCreatinine [Mass/Vol]0.94 mg/dL0.70 - 1.28 mg/dLCedar County Memorial Hospital GFR/1.73 sq M.predicted among non-blacks MDRD (S/P/Bld) [Vol rate/Area]86 mL/min/{1.73_m2}> OR = 60 mL/min/1.67t4PFJXCedar County Memorial HospitalGlobulin (S) [Mass/Vol]2.2 g/dLCedar County Memorial HospitalGlucose [Mass/Vol]108 mg/rVZhpr60 - 99 mg/dLCedar County Memorial Hospital Comment on above: Fasting reference interval For someone without known diabetes, a glucose value between 100 and 125 mg/dL is consistent with prediabetes and should be confirmed with a follow-up test. Potassium [Moles/Vol]4.2 mmol/L3.5 - 5.3 mmol/LNOMS HealthcareProtein [Mass/Vol] 6.8 g/dL6.1 - 8.1 g/dLCedar County Memorial HospitalSodium [Moles/Vol]137 mmol/L135 - 146 mmol/LNOMS HealthcareUrea nitrogen [Mass/Vol]17 mg/dL7 - 25 mg/dLCedar County Memorial Hospital Urea nitrogen/Creatinine [Mass ratio]SEE NOTE:[facility] County Memorial HospitalComment on above: Not Reported: BUN and Creatinine are within reference range. No Panel Informationon [id number] and review of laboratory results AbnormalCedar County Memorial HospitalPerforming Organization Information Site ID: QPT Name: [facility] Address: [address] [place] [address], [address] [place] [id number] Director: Asael Mcarthur MDCape Fear Valley Bladen County HospitalUrinalysis macro (dipstick) panel (U)on [id number], UANegativeNegative - 4(70) +++ mg/dL [facility] HealthcareBlood, UANegativeNegative - 50 Marin/mcLNODE HealthcareClarity, UA ClearNODE HealthcareColor, UAYellowNODE HealthcareGlucose, UANegativeNegative - 2000(110) ++++ mg/dLCedar County Memorial HospitalKetones, UANegativeNegative - 160(16) ++++ mg/dLCedar County Memorial HospitalLeukocytes, UANegativeNegative - 500+++ Yayo/mcLNODE HealthcareNitrite, UANegativeNegative - PositiveNOMS HealthcarepH, UA65 - 9NOMS HealthcareProtein, UANegativeNegative - 2000(20) ++++ mg/dLNODE HealthcareSpec Grav, UA1.011 - 1.03NOMS HealthcareUrobilinogen, UA0.20.2 - 12 mg/dLNODE HealthcareNODE HealthcareComprehensive Metabolic Panelon [id number] [Mass/Vol]4.8 g/dLNormal3.6-5.1[facility] SpecialistComment on above: Performed By: #### CMP, LIPD #### [facility] [address] [place], [place] [id number]/Globulin [Mass ratio]2.2 {ratio}Normal1.0-2.5Nortyavapai regional medical centern [facility] SpecialistComment on above:Performed By: #### CMP, LIPD #### [facility] [address] [place], [place] [id number] [Catalytic activity/Vol]88 U/IGzmmoo58-124Dikndrfe [facility] SpecialistComment on above:Performed By: #### CMP, LIPD #### [facility] [address] [place], [place] [id number] [Catalytic activity/Vol]31 U/LNormal9-46NortLake County Memorial Hospital [facility] West SpecialistComment on above:Result Comment: 03/09/2021 Female reference range changed.Performed By: #### CMP, LIPD #### [facility] [address] [place], [place] [id number] gap [Moles/Vol]20 mmol/YBbudil26-58Ajcolgqk [facility] SpecialistComment on above:Result Comment: Effective 04/14/2019 reference range changed.Performed By: #### CMP, LIPD #### [facility] [address] [place], [place] [id number] [Catalytic activity/Vol]28 U/AGcvrqe54-61Xezmmgvg [facility] SpecialistComment on above:Performed By: #### CMP, LIPD #### [facility] [address] [place], [place] [id number]/CREA28 RatioHigh6-22[facility] [place] [facility] Comment on above:Performed By: #### CMP, LIPD #### [facility] [address] [place], [place] [id number] [Mass/Vol]9.0 mg/dLNormal8.6-10.2[facility] [place] [facility] SpecialistComment on above:Performed By: #### CMP, LIPD #### [facility] [address] [place], [place] [id number] [Moles/Vol]101 mmol/LUyyfur95-135Spqwqwxi [place] [facility] SpecialistComment on above:Performed By: #### CMP, LIPD #### [facility] [address] [place], [place] [id number] [Moles/Vol]21 mmol/XKksxmu06-79Tdrlpuyh [place] [facility] SpecialistComment on above:Performed By: #### CMP, LIPD #### [facility] [address] [place], [place] [id number] [Mass/Vol]0.9 mg/dLNormal0.7-1.4[facility] [place] [facility] SpecialistComment on above:Performed By: #### CMP, LIPD #### [facility] [address] [place], [place] [id number] mL/min/1.33k9Aavdei>60[facility] [place] [facility] SpecialistComment on above:Performed By: #### CMP, LIPD #### [facility] [address] [place], [place] [id number] mL/min/1.45n9Nfqvhd>60[facility] [place] [facility] SpecialistComment on above:Performed By: #### CMP, LIPD #### [facility] [address] [place], [place] [id number] (S) [Mass/Vol]2.2 g/dLNormal1.9-3.7[facility] [place] [facility] SpecialistComment on above:Performed By: #### CMP, LIPD #### [facility] [address] [place], [place] [id number] [Mass/Vol]95 mg/dFQpstqh55-44Xygrbjid [place] [facility] SpecialistComment on above:Result Comment: For FASTING Glucose --- ADA reference ranges: Normal 65-99 mg/dl Prediabetes 100-125 Diabetes >/= 126Performed By: #### CMP, LIPD #### [facility] [address] [place], [place] [id number] [Moles/Vol]4.5 mmol/LNormal3.5-5.5NoProMedica Bay Park Hospital SpecialistComment on above:Performed By: #### CMP, LIPD #### [facility] [address] [place], [place] [id number] [Mass/Vol]7.0 g/dLNormal6.1-8.1NortherBerger Hospital SpecialistComment on above:Performed By: #### CMP, LIPD #### [facility] [address] [place], [place] [id number] [Moles/Vol]137 mmol/PQbhxad220-181Pjaqdpiv [place] [facility] SpecialistComment on above:Performed By: #### CMP, LIPD #### [facility] [address] [place], [place] [id number]<0.3NormalNoProMedica Bay Park Hospital SpecialistComment on above:Performed By: #### CMP, LIPD #### [facility] [address] [place], [place] [id number] nitrogen [Mass/Vol]27 mg/dLHigh7-25NoProMedica Bay Park Hospital SpecialistComment on above:Performed By: #### CMP, LIPD #### [facility] [address] [place], [place] [id number] Panelon [id number] [Mass/Vol]270 mg/dLHigh 125-200NoProMedica Bay Park Hospital SpecialistComment on above:Result Comment: Low risk < 200mg/dL Borderline risk 201-239 mg/dl High risk > or equal to 240Performed By: #### CMP, LIPD #### [facility] [address] [place], [place] [id number] in HDL [Mass/Vol]52 mg/dLNormal>40NoMorrow County HospitalComment on above:Result Comment: High Cardiovascular Risk HDL <40 mg/dL Low Cardiovascular Risk HDL > or equal to 60 mg/dlPerformed By: #### CMP, LIPD #### [facility] [address] [place], [place] [id number] in LDL [Mass/Vol]182 mg/dLNormKindred Hospital DaytonComment on above:Result Comment: LDL ATP III CLASSIFICATION LDL less than 100 mg/dl Optimal LDL 100-129 mg/dl Near or above optimal LDL 130-159 Borderline high LDL 160-189 High LDL greater than 189 mg/dl Very HighPerformed By: #### CMP, LIPD #### [facility] [address] [place], [place] [id number] in VLDL [Mass/Vol]36 mg/dLNoWayne HealthCare Main [facility] SpecialistComment on above:Performed By: #### CMP, LIPD #### [facility] [address] [place], [place] [id number].total/Cholesterol in HDL [Mass ratio]5 {ratio} NormalTrihealth Good Samaritan HospitalComment on above:Performed By: #### CMP, LIPD #### [facility] [address] [place], [place] [id number] [Mass/Vol]182 mg/mLEldy39-911Uahpfwtb [place] [facility] SpecialistComment on above:Result Comment: TRIG ATPIII CLASSIFICATIONS TRIG less than 150 mg/dl Normal TRIG 150-199 mg/dl Borderline High TRIG 200-500 mg/dl High TRIG greather than 500 mg/dl Very HighPerformed By: #### CMP, LIPD #### [facility] [address] [place], [place] [id number] Specific Antigen, Totalon 92-18-8954EMHR3.481 ng/mL Normal<4.000NoMorrow County HospitalComment on above:Result Comment: PSA Test Method: ECLIA/Becky e 601Performed By: #### PSA #### [facility] [address] [place], [place] [id number] YAIMA ADMITon [id number] [Catalytic activity/Vol]194 U/LCritically nbnh02-846Haj [facility] TroyComment on above:Performed By: #### CMP, CMADM, LIPA #### [facility] [address] [place] [address] Carson KarenCK.MB [Mass/Vol]2.25 ng/mLNormal<=2.37The [facility] TroyComment on above:Performed By: #### CMP, CMADM, LIPA #### [facility] [address] [place] [address] Carson KarenINR Coag (Bld) [Relative time]SEE BELOWNoalThe [facility] Comment on above:Result Comment: <0.034 ng/ml NEGATIVE 0.034-0.119 INDETERMINATE 0.120 AMI CUT OFFPerformed By: #### CMP, CMADM, LIPA #### [facility] [address] [place] [address] Carson JkezbBTW08.0 ng/mLNormal<=121.0[facility] HospitalComment on above: Performed By: #### CMP, CMADM, LIPA #### [facility] [address] [place] [address] Carson KarenTROP<0.017Normal<=0.034The [facility] TroyComment on above: Performed By: #### CMP, CMADM, LIPA #### [facility] [address] [place] [address] Carson KarenCBC AUTO DIFFon 01-05-8204Jcnnkooyx (Bld) [#/Vol]0.0 103/ulNormal 0.0-0.1The [facility] TroyComment on above:Performed By: #### CBC #### [facility] [address] [place] [address] Carson KarenBasophils/100 WBC (Bld)0.2 %Normal0.2-2.0[facility] Comment on above:Performed By: #### CBC #### [facility] [address] [place], [place] [address] Carson KarenEosinophils (Bld) [#/Vol]0.1 103/ulNormal0.0-0.7The [facility] TroyComment on above:Performed By: #### CBC #### [facility] [address] [place] [address] Carson KarenEosinophils/100 WBC (Bld)1.0 %Normal0.9-7.0The [facility] Comment on above:Performed By: #### CBC #### [facility] [address] [address] Carson KarenErythrocyte distribution width (RBC) [Ratio]13.7 %Hjxbvb37.0-15.0The [facility] TroyComment on above:Performed By: #### CBC #### [facility] [address] [place] [address] Carson KarenHematocrit (Bld) [Volume fraction]42.7 %Gekakt44.0-54.0The [facility] TroyComment on above:Performed By: #### CBC #### [facility] [address] [place] [address] Carson KarenHemoglobin (Bld) [Mass/Vol]14.8 g/pZGcxnem74.0-18.0The [facility] TroyComment on above:Performed By: #### CBC #### [facility] [address] [place] [address] Carson KarenIG #0.03 10e3/ulNormal0.00-0.03The [facility] TroyComment on above:Performed By: #### CBC #### [facility] [address] [place] [address] Carson KarenIG %0.6 %Critically high0.0-0.5The [facility] TroyComment on above:Performed By: #### CBC #### [facility] [address] [place] [address] Carson KarenLymphocytes (Bld) [#/Vol]1.6 103/ulNormal1.2-3.8The [facility] TroyComment on above:Performed By: #### CBC #### [facility] [address] [id number] Carson KarenLymphocytes/100 WBC (Bld)29.9 %Pqyykr41.5-60.0[facility] Comment on above:Performed By: #### CBC #### [facility] [address] [id number] Carson KarenMANUAL DIFF REQNONormalThe [facility] TroyComment on above: Performed By: #### CBC #### [facility] [address] [address] Carson KarenMCH (RBC) [Entitic mass]30.9 nlXvuthn87.9-34.0[facility] Comment on above:Performed By: #### CBC #### [facility] [address] [place] [address] Carson KarenMCHC (RBC) [Mass/Vol]34.7 g/sGAidepy94.9-35.2[facility] Comment on above:Performed By: #### CBC #### [facility] [address] [place] [address] Carson KarenMCV (RBC) [Entitic vol]89.1 jBLfrtsr62.0-94.0[facility] Comment on above:Performed By: #### CBC #### [facility] [address] [place] [address] Carson KarenMonocytes (Bld) [#/Vol]0.6 103/ulNormal0.3-0.8ThBucyrus Community Hospital Comment on above:Performed By: #### CBC #### [facility] [address] [place] [address] Carson KarenMonocytes/100 WBC (Bld)11.1 %Normal1.7-12.0[facility] Comment on above:Performed By: #### CBC #### [facility] [address] [place] [address] Carson KarenNeutrophils (Bld) [#/Vol]3.0 103/ulNormal1.4-6.5The [facility] TroyComment on above:Performed By: #### CBC #### [facility] [address] [place], [place] [id number] Carson KarenNeutrophils/100 WBC (Bld)57.2 %Rgzwpy68.0-75.0[facility] Comment on above:Performed By: #### CBC #### [facility] [address] [place] [address] Carson KarenPlatelet mean volume (Bld) [Entitic vol]10.4 fLNormal9.5-13.5The [facility] TroyComment on above:Performed By: #### CBC #### [facility] [address] [place], [place] [id number] Carson KarenPlatelets (Bld) [#/Vol]157 103/fyCabvoz951-095QypBluffton Hospital Comment on above:Performed By: #### CBC #### [facility] [address] [place] [address] Carson KarenRBC (Bld) [#/Vol]4.79 106/ulNormal4.70-6.10The [facility] Comment on above:Performed By: #### CBC #### [facility] [address] [place], [place] [phone] Carson KarenWBC (Bld) [#/Vol]5.2 103/ulNormal4.0-11.0[facility] Comment on above:Performed By: #### CBC #### [facility] [address] [place] [address] Carson KarenD-DIMERon 14-52-9430G-DIMER COMMENTSSEE [facility] [place] [facility] HospitalComment on above:Result Comment: Increases in D-Dimer concentration observed with thromboembolic events can be variable due to localization, size, and age of the thrombus. Therefore, a thromboembolic event cannot be diagnosed with certainty on the basis of the reference range. D-Dimers may also be elevated for a variety of disorders including: advanced age, , coronary disease, cancer, liver disease, infection, inflammation, hematoma, DIC, trauma, post-surgery, diabetes, thrombolytic or anticoagulant therapy, stress, and generalizd hospitalization.Performed By: #### DDIM, PT #### [facility] [address] [place] [address] Carson KarenFibrin D-dimer FEU IA (Bld) [Mass/Vol]ug/mLNormal0.19-0.50The [facility] on above:Performed By: #### OPHELIA, PT #### [facility] [address] [place] [address] Carson KarenER URINE PROFILEon 36-40-1684Kzpqgemce [Mass/Vol]NegativeNormal NEGATIVEThe [facility] TroyComment on above:Performed By: #### ALVIN FRANKEL #### [facility] [address] [place] [address] [place] KarenBLOODSMALLNormalNEGATIVEBluffton HospitalCommclaren thumb region on above: Performed By: #### ALVIN FRANKEL #### [facility] [address] [place] [address] Carson KarenClarity (U)CLEARNormalThe [facility] TroyComment on above: Performed By: #### ALVIN FRANKEL #### [facility] [address] [place] [address] Carson KarenColor (U)LT. YELLOWNormalYELLOWBluffton HospitalCommclaren thumb region on above:Performed By: #### ALVIN FRANKEL #### [facility] [address] [place] [address] [place] KarenERUAHDA micrscopic examination will be performed if indicated.Normal The [facility] TroyComment on above:Performed By: #### ALVIN FRANKEL #### [facility] [address] [place] [address] Carson KarenGlucose [Mass/Vol]NegativeNormalNEGATIVEBluffton HospitalCommclaren thumb region on above:Performed By: #### ALVIN FRANKEL #### [facility] [address] [place] [address] Carson KarenKetones Ql (U)NegativeNormalNEGATIVEBluffton HospitalComment on above:Performed By: #### ALVIN FRANKEL #### [facility] [address] [place] [address] Carson KarenNitrite Ql (U)NegativeNormalNEGATIVEBluffton HospitalComment on above:Performed By: #### ALVIN FRANKEL #### [facility] [address] [place] [address] Carson KarenpH (Bld)6.0Bivggc5-7GeyBluffton HospitalComment on above:Performed By: #### ALVIN FRANKEL #### [facility] [address] [place] [address] Carson KarenProtein (U) [Mass/Vol]NegativeNormSheltering Arms HospitalComment on above:Performed By: #### ALVIN FRANKEL #### [facility] [address] [place] [address] Carson KarenSPEC GRAVITY<=1.876Yufqsb9.005-<=1.025The [facility] TroyComment on above:Performed By: #### ALVIN FRANKEL #### [facility] [address] [place] [address] Carson KarenUR MICRO INDINDICATEDNoUK HealthcareComment on above: Performed By: #### ALVIN FRANKEL #### [facility] [address] [place] [address] Carson KarenUrobilinogen Qn (U)0.2 EU/dlNoUK HealthcareComment on above:Performed By: #### ALVIN FRANKEL #### [facility] [address] [place] [address] Carson KarenWBC (Bld) [#/Vol]NegativeNormalNEGATIVEThe [facility] TroyComment on above:Performed By: #### ALVIN FRANKEL #### [facility] [address] [place] [address] Carson KarenLIPASEon 16-08-7802Awjmhb [Catalytic activity/Vol]165.0 U/LNormal 23.0-300.0Bl[facility] HospitalComment on above:Performed By: #### CMP, CMADM, LIPA #### [facility] [address] [address] Carson KarenPROF 14(COMP METB)on 62-61-7920Upodlrb [Mass/Vol]4.2 g/dLNormal 3.5-5.0[facility] HospitalComment on above:Performed By: #### CMP, CMADM, LIPA #### [facility] [address] [address] Carson KarenAlbumin/Globulin [Mass ratio]1.3 {ratio}NormalBluffton Hospital Comment on above:Performed By: #### CMP, CMADM, LIPA #### [facility] [address] [address] Carson KarenALP [Catalytic activity/Vol]66 U/LNcaakx06-029ZaeBluffton Hospital Comment on above:Performed By: #### CMP, CMADM, LIPA #### [facility] [address] [address] Carson KarenALT [Catalytic activity/Vol]48 U/UXnpmcy40-20Sjv [facility] Comment on above:Performed By: #### CMP, CMADM, LIPA #### [facility] [address] [address] Carson KarenAnion gap [Moles/Vol]10.8 mmol/LNormalBluffton HospitalComment on above:Performed By: #### CMP, CMADM, LIPA #### [facility] [address] [address] Carson KarenAST [Catalytic activity/Vol]32 U/NYobtzy38-65Mat [facility] Comment on above:Performed By: #### CMP, CMADM, LIPA #### [facility] [address] [address] Carson KarenBilirubin Ql (U)0.5 mg/dLNormal0.2-1.3The [facility] TroyComment on above:Performed By: #### CMP, CMADM, LIPA #### [facility] [address] [address] Carson KarenCalcium [Mass/Vol]8.9 mg/dLNormal8.4-10.2[facility] Comment on above:Performed By: #### CMP, CMADM, LIPA #### [facility] [address] [place] [address] Carson KarenChloride [Moles/Vol]101 mmol/WNwjzrf95-218IniBluffton Hospital Comment on above:Performed By: #### CMP, CMADM, LIPA #### [facility] [address] [place] [address] Carson KarenCO2 [Moles/Vol]27.4 mmol/JJulocy26.0-30.0[facility] Comment on above:Performed By: #### CMP, CMADM, LIPA #### [facility] [address] [place] [address] Carson KarenCreatinine [Mass/Vol]0.93 mg/dLNormal0.66-1.25ThBucyrus Community Hospital Comment on above:Performed By: #### CMP, CMADM, LIPA #### [facility] [address] [place] [address] Carson KarenEGFR-AF BOTSWANAN>60Normal>=60The [facility] TroyComment on above: Performed By: #### CMP, CMADM, LIPA #### [facility] [address] [place] [address] Carson KarenEGFR-NON AF BOTSWANAN>60Normal>=60Bl[facility] HospitalComment on above:Performed By: #### CMP, CMADM, LIPA #### [facility] [address] [place] [address] Carson KarenGlobulin (S) [Mass/Vol]3.2 g/dLNormalThe [facility] TroyComment on above:Performed By: #### CMP, CMADM, LIPA #### [facility] [address] [place] [address] Carson KarenGlucose [Mass/Vol]99 mg/nGWuqmpn05-420Nuz [facility] TroyComment on above:Performed By: #### CMP, CMADM, LIPA #### [facility] [address] [place] [address] Carson KarenPotassium [Moles/Vol]4.2 mmol/LNormal3.4-5.0The [facility] Comment on above:Result Comment: SLIGHT HEMOLYSISPerformed By: #### CMP, CMADM, LIPA #### [facility] [address] [place] [address] Carson KarenProtein [Mass/Vol]7.4 g/dLNormal6.1-8.2The [facility] TroyComment on above:Performed By: #### CMP, CMADM, LIPA #### [facility] [address] [place] [address] Carson KarenSodium [Moles/Vol]135 mmol/LCritically eum118-134Bhh [facility] TroyComment on above:Performed By: #### CMP, CMADM, LIPA #### [facility] [address] [place] [address] Carson KarenUrea nitrogen [Mass/Vol]21.0 mg/dLCritically high9.0-20.0The [facility] TroyComment on above:Performed By: #### CMP, CMADM, LIPA #### [facility] [address] [place] [address] Carson KarenUrea nitrogen/Creatinine [Mass ratio]22.6 mg/mgNormSheltering Arms HospitalComment on above:Performed By: #### CMP, CMADM, LIPA #### [facility] [address] [place] [address] [place] KarenPROTIMEon 65-32-7927PVS Coag (PPP) [Relative time]0.98 {INR}Normal The [facility] TroyCommclaren thumb region on above:Performed By: #### DDIM, PT #### [facility] [address] [place] [address] Carson KarenPT Coag (PPP) [Time]PLEASE NOTE: NORMAL RANGE CHANGE 12-25-2013 DUE TO REAGENT LOT CHANGENoUK HealthcareComment on above:Performed By: #### DDIM, PT #### [facility] [address] [place] [address] Carson KarenPT Coag (PPP) [Time]SEE BELOWHolmes County Joel Pomerene Memorial HospitalComment on above:Result Comment: DESIRED INR: 2.0 - 3.0 CONDITIONS NOT LISTED BELOW 2.5 - 3.5 FOR PROSTHETIC HEART VALVE REPLACEMENT 2.5 - 3.5 RECURRENT THROMBOSIS Performed By: #### OPHELIA, PT #### [facility] [address] [place] [address] Carson KarenPT Coag (PPP) [Time]10.2 sNormal9.0-11.6The [facility]acolin HospitalComment on above:Performed By: #### OPHELIA, PT #### [facility] [address] [place] [address] [place] KarenURINE MICROSCOPIC ONLYon 22-83-0672Bhklnjep LM.HPF (Urine sed) [#/Area]NONE [facility] Hospital LimaComment on above:Performed By: #### MARLYS UMICRO #### [facility] [address] [place] [address] [place] KarenCASTNONE SEENrmalNONE [facility] HospitalCommclaren thumb region on above: Performed By: #### MARLYS UMICRO #### [facility] [address] [place] [address] Carson KarenCrystals LM Nom (Urine sed)NONE [facility] [facility] on above:Performed By: #### MARLYS UMICRO #### [facility] [place] [facility] [address] [place] [address] Carson KarenCULTURENOT INDICATEDHolmes County Joel Pomerene Memorial HospitalCommclaren thumb region on above: Performed By: #### MARLYS UMICRO #### [facility] [place] [facility] [address] [place] [address] Carson KarenEpithelial cells LM.HPF (Urine sed) [#/Area]NONE [facility] on above:Performed By: #### MARLYS UMICRO #### [facility] [place] [facility] [address] [place] [address] Carson KarenMUCOUSNONE SEENrmalNONE SEENThe [facility] HospitalComment on above: Performed By: #### ERUR, UMICRO #### [facility] [place] [facility] [address] [place], [place] [address] Carson AlvaradoenRBC (U) [#/Vol]5-7Zxlnxt0-6Joe [facility] TroyComment on above: Performed By: #### ERUR, UMICRO #### [facility] [place] [facility] [address] [place], [place] [address] Carson AlvaradoenWBC (Bld) [#/Vol]NONE SEENNormalNONE SEENBluffton Hospital Comment on above:Performed By: #### ERUR, UMICRO #### [facility] [place] [facility] [address] [place], [place] [address] Carson AlvaradoenXR CHEST 2 Von 14-76-1580GL CHEST 2 VPatient: YAIMA LESTER Exam Date: 03/12/2019 : 1950 Gender:M Ordering : DR. LAKESHA FRY M.D. Admission #: [id number] Family : Order #: [id number] CLICK HERE TO VIEW EXAM RADIOLOGY REPORT PROCEDURE: RADIOGRAPH CHEST 2 VIEWS COMPARISON: None. INDICATIONS: Acute chest pain FINDINGS: LUNGS: Elevated right hemidiaphragm. No appreciable infiltrates or mass. VASCULATURE: No increased pulmonary vasculature. PLEURA: No pneumothorax, effusion, or pleural thickening. CARDIAC: No cardiomegaly or cardiac silhouette abnormality. MEDIASTINUM: No visible mass or adenopathy. BONES: No fracture or visible bone lesion. OTHER: Negative. CONCLUSION: 1. Elevated right hemidiaphragm which may be chronic. A subpulmonic pleural effusion is felt less likely. No comparison studies. 2. No convincing acute cardiopulmonary process. Dictated by: Dima Munson M.D. on 03/12/2019 at 12:16 Approved by: Dima Munson M.D. on 03/12/2019 at 12:18[facility] Vital Signs Date TimeVital SignValuePerforming DpckgjoumPvrqyefk45-20-1918 11:57-0400Body qfryms253.62 kgJennifer Jaime Saleem MD Work Phone: [facility]09-10-2025 11:57-0400 Diastolic blood folinlpo511 mm[Hg]Kay Saleem MD Work Phone: [phone]09-10-2025 11:57-0400 Heart rate64 /minJennkimberly Jaime Saleem MD Work Phone: [phone]09-10-2025 11:57-0400 SaO2% (BldA) [Mass fraction]92 %Kay Saleem MD Work Phone: [phone]09-10-2025 11:57-0400 Systolic blood sxfidxyy705 mm[Hg]Kay Saleem MD Work Phone: [phone]06-16-2025 10:39-0400 Body mass index (BMI) [Ratio]36.62 kg/v9Thjpvyd Bajwa [employer]RIAGE FEEDER Work Phone: [facility] HospitalZpnahthsjh00-90-1597 10:39-0400Body temperature 97.5 [degF]Leyla Celiszpatrick CARRIAGE FEEDER Work Phone: [facility] HospitalInthsqlnkb15-99-6201 10:39-0400Body euqdht742.49 kgChristy Bajwa CARRIAGE FEEDER Work Phone: [facility] HospitalBisymsqatp33-44-3649 10:39-0400Diastolic blood irlebowk66 mm[Hg]Leyla Celiszpatrick CARRIAGE FEEDER Work Phone: [facility] HospitalSvnchsusps12-87-0122 10:39-0400Systolic blood cdhlvlpa892 mm[Hg]Leyla Celiszpatrick CARRIAGE FEEDER Work Phone: [facility] HospitalJgrgdpqurp07-45-6565 09:40-0400Body ransxa934.3 Siva SALDIVAR Work Phone: noResearch Medical CenterYuqoubwlrs21-73-1486 09:40-0400Body mass index (BMI) [Ratio]36.77 kg/m2Rosanna SALDIVAR Work Phone: [facility] HospitalRimwwljlys34-13-6076 09:40-0400Body oxazwv963.95 kgRosanna Jacome PA Work Phone: NOResearch Medical CenterRyzqsnthid40-08-3971 09:40-0400Diastolic blood pstitayi57 mm[Hg]Rosanna Jacome PA Work Phone: [facility] CenterFvrdvgedpc55-46-6077 09:40-0400Heart rate58 /min Rosanna Jacome PA Work Phone: [facility] CenterZgtvkthvux29-89-7905 09:40-0400Respiratory rate16 /minRosanna Jacome PA Work Phone: [facility] CenterJzgcjxmjyz00-11-1430 09:40-7371QeT5% (BldA) [Mass fraction]94 %Rosanna Jacome PA Work Phone: NOR[facility] Medical CenterGvzfeifrtr11-43-2237 09:40-0400Systolic blood mm[Hg]Rosanna Jacome PA Work Phone: [facility] HospitalMyicbaggln09-17-9650 16:12-0400Body .7 cmAmartha Jacome PA Work Phone: NOR[facility] CenterAxdvazlmea98-81-8994 16:12-0400Body mass index (BMI) [Ratio]36.49 kg/m2Rosanna Jacome PA Work Phone: NOR[facility] CenterOtvnlaalov97-28-9610 16:12-0400Body bryspa699.86 kgRosanna Jacome PA Work Phone: NOR[facility] Medical CenterBetpddtica30-48-5960 16:12-0400Diastolic blood ogcprlqr12 mm[Hg]Rosanna Jacome PA Work Phone: NOR[facility] CenterRopbwivbbr35-39-5512 16:12-0400Heart rate65 /min Rosanna Jacome PA Work Phone: NOR[facility] CenterTapaqceink30-61-0672 16:12-3575CnW4% (BldA) [Mass fraction]95 %Rosanna Jacome PA Work Phone: NOR[facility] Medical CenterVfrgtwxluq86-81-4269 16:12-0400Systolic blood cvpxcapn722 mm[Hg]Rosanna Jacome PA Work Phone: [facility] HospitalUbfiioiict37-42-2123 14:27-0500Body mass index (BMI) [Ratio]36.51 kg/h4Rabschgmiuo Hassett DO Work Phone: [facility] HospitalGfinahwyhq92-95-1329 14:27-0500Body mmeeet891.13 kgChristopher Cespedes DO Work Phone: [facility] HospitalJixwzkvnqw66-23-3252 14:27-0500Diastolic blood xzpqtkar95 mm[Hg]Christjose eduardoer Coy DO Work Phone: [facility] HospitalRddxqmephf61-12-6850 14:27-0500Heart rate65 /min Christopher Coy DO Work Phone: noResearch Medical CenterPfrehakfbp13-64-8198 14:27-4614YnY9% (BldA) [Mass fraction]93 %Christjanine Cespedes DO Work Phone: [facility] HospitalJwmqnfphrx69-69-4668 14:27-0500Systolic blood ikgqhzid291 mm[Hg]Christjanine Cespedes DO Work Phone: [facility] HospitalMjsddctqqy05-64-2086 13:25-0500Body zmjnyu159.3 cmKay Saleem MD Work Phone: [facility] HospitalOounhaikhi90-74-3223 13:25-0500Body mass index (BMI) [Ratio]36.33 kg/n0DjdbitmnKay Saleem MD Work Phone: [facility] HospitalVfrpyfbmdq27-94-8773 13:25-0500Body uqwnyn224.58 kgKay Saleem MD Work Phone: [facility] HospitalCngipxvjmw43-98-3286 13:25-0500Diastolic blood dqgpactl06 mm[Hg]Kay Saleem MD Work Phone: [facility] HospitalQsyfacwpdj05-69-2655 13:25-0500Heart rate61 /min Kay Saleem MD Work Phone: [facility] HospitalGizidwkiuo65-68-2532 13:25-0500Respiratory rate18 /minKay Saleem MD Work Phone: [phone])[address]01-21-2025 13:25-8879IuH7% (BldA) [Mass fraction]97 %Kay Saleem MD Work Phone: [phone])[address] [place], [place] [address]01-21-2025 13:25-0500Systolic blood sktzoezu187 mm[Hg]Kay Saleem MD Work Phone: [phone])[address] [place], [place] 2936911-14-2024 11:35-0500Body .3 cmKay Saleem MD Work Phone: [phone] [place] [address]-14-2024 11:35-0500Body mass index (BMI) [Ratio]36.33 kg/o7AyikttytKay Saleem MD Work Phone: [phone])[address] [place], [place] 2936911-14-2024 11:35-0500Body .58 kgKay Saleem MD Work Phone: [phone])[address] [place], [place] 2936911-14-2024 11:35-0500Diastolic blood yzwqffwu21 mm[Hg]Kay Saleem MD Work Phone: [phone] [place] [address]-14-2024 11:35-0500Heart rate69 /min Kay Saleem MD Work Phone: [phone])[facility] [place], [place] [address]Zfdmvqrfsl01-42-1661 11:35-0580XxR2% (BldA) [Mass fraction]95 %Kay Saleem MD Work Phone: [phone])[address] [place], [place] 2936911-14-2024 11:35-0500Systolic blood duungtwj064 mm[Hg]Kay Saleem MD Work Phone: 1(840)[address] [place], [place] 29[address]10-22-2024 11:02-0400Body efikuf577.7 Jennifer Newman MD Work Phone: [facility]10-22-2024 11:02-0400Body mass index (BMI) [Ratio]37.45 kg/w6ZtamgChuck Newman MD Work Phone: [facility]10-22-2024 11:02-0400Body sgiusx711.72 kgChuck Newman MD Work Phone: [facility]10-22-2024 11:02-0400Diastolic blood pnaldooh90 mm[Hg]Chuck Newman MD Work Phone: [facility]10-22-2024 11:02-0400Heart rate 68 /minChuck Newman MD Work Phone: [facility]10-22-2024 11:02-9339SgS7% (BldA) [Mass fraction]95 %Chuck Newman MD Work Phone: [facility]10-22-2024 11:02-0400Systolic blood lzzekwux432 mm[Hg]Chuck Newman MD Work Phone: [facility]09-24-2024 10:24-0400Body mgijwe524.3 cmCarlos Baugh MD Work Phone: [facility] HospitalXpshquzlkq85-63-4050 10:24-0400Body mass index (BMI) [Ratio]36.92 kg/w8SarmreCarlos Baugh MD Work Phone: [facility] HospitalRvbjtiqjyl05-13-3673 10:24-0400Body ieickm762.4 kgCarlos Baugh MD Work Phone: [facility] HospitalVtmrpgptze49-07-7107 10:24-0400Diastolic blood bibyzdor40 mm[Hg]Carlos Baugh MD Work Phone: [facility] HospitalBnqcxowfcl46-74-4490 10:24-0400Systolic blood envptezt992 mm[Hg]Carlos Baugh MD Work Phone: [place] [address]Gmwzuxizhn20-68-2750 14:40-0400Body fttkdy123.3 cmKay Saleem MD Work Phone: [place] [address]Sfclrynhfk19-58-4493 14:40-0400Body mass index (BMI) [Ratio]36.53 kg/q5XeafgshzKay Saleem MD Work Phone: [place] [address]Xzjonfrvyn24-53-6630 14:40-0400Body uhbfrg490.22 kgKay Saleem MD Work Phone: [facility] HospitalQviwrjhmzv17-84-0305 14:40-0400Diastolic blood temkicts59 mm[Hg]Kay Saleem MD Work Phone: [facility] HospitalXfkiblttpk26-98-9223 14:40-0400Heart rate66 /min Kay Saleem MD Work Phone: [facility] HospitalSmcsbgpuzc28-98-4856 14:40-0876SgM3% (BldA) [Mass fraction]97 %Kay Saleem MD Work Phone: [facility] HospitalXpcxpuajja45-48-1755 14:40-0400Systolic blood mjpowxqm205 mm[Hg]Kay Saleem MD Work Phone: [facility] HospitalLzxgrmqmxo52-58-0790 09:33-0400Body .7 cmArosie Newman MD Work Phone: [phone] [place], [place] [address]404-30-2024 09:33-0400Body mass index (BMI) [Ratio]38.33 kg/r5LripeChuck Newman MD Work Phone: [phone] [place], [place] [address]404-30-2024 09:33-0400Body .35 kgChuck Newman MD Work Phone: [phone]04-30-2024 09:33-0400Diastolic blood kebmzinm14 mm[Hg]Chuck Newman MD Work Phone: [phone]04-30-2024 09:33-0400Heart rate 62 /minChuck Newman MD Work Phone: [phone]04-30-2024 09:33-2243RjZ6% (BldA) [Mass fraction]96 %Chuck Newman MD Work Phone: [phone]04-30-2024 09:33-0400Systolic blood qxbsmyrj896 mm[Hg]Chuck Newman MD Work Phone: [phone]03-27-2024 10:44-0400Body piicug650.[address]03-27-2024 10:44-0400Body mass index (BMI) [Ratio]37.25 kg/m2Pmh [address] [place], [place] [address]603-27-2024 10:44-0400Body yykfzk305.[address] [place] [address] Encounters Encounter DateEncounter TypeCare ProviderFacilityStart: 12-17-2024 End: 43-39-8447uvcpnqwphrLplayehyMarcela Saleem MD Work Phone: [facility] Work Phone: Start: 12-17-2024 End: 30-23-6508Fjlyvpr encounter procedureChristopher Coy Gilman DO-[facility] [place] Work Phone: Start: 12-03-2024 End: 50-81-2789Zjdhlfjpq encounterKay Saleem MD Work Phone: [facility] MedicineStart: 10-01-2024 End: 22-82-9107LsgycfWctvfcge Dayana Hoskins CARRIAGE FEEDER Work Phone: noms FNR FMComment on above:Altered mental status, unspecified altered mental status typeStart: 09-23-2024 End: 87-63-2513hcclfzkgquDDKAMVBF HOHMANNot AvailableStart: 09-22-2024 End: 73-44-8418Oysxrd flowsheetChristy A Bajwa [employer]RIAGE FEEDER Work Phone: NOFJ FNR FMStart: 09-22-2024 End: 51-70-8276Vzyacl flowsheetChristy A Bajwa CARRIAGE FEEDER Work Phone: NOIU FNR FMStart: 09-22-2024 End: 12-23-6657Jhlhhbg encounter procedureChristy A Bajwa [employer]RIAGE FEEDER Work Phone: NOAP FNR FMComment on above:Encounter for annual wellness exam in Medicare patient (Primary Dx); Screening for prostate cancer; Benign essential hypertension ; Obstructive sleep apnea; Obesity, morbid (CMS-HCC); 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, psychotic disturbance, mood disturbance, or anxiety ([facility]); Screening for deficiency anemia; Mixed hyperlipidemia ; Diplopia; Muscle tension dysphonia; Obesity (BMI 30-39.9); Recurrent major depressive disorder, in full remission ; Hearing loss, unspecified hearing loss type, unspecified laterality; Hypercholesteremia ; Sensorineural hearing loss, asymmetricalStart: 09-22-2024 End: 21-57-9753tqghxwssqmNRRYKME A FITZPATRICKNot AvailableStart: 09-03-2024 End: 60-32-9974Fdjxrgtug Result EncounterGeneric External Data ProviderNOMS External Department UnsolicitedStart: 09-03-2024 End: 84-71-4462Johtxoltd Result EncounterGeneric External Data ProviderNOMS External Department UnsolicitedStart: 09-02-2024 End: 13-52-4153Fnnzpvyvz encounterDevoashlyn SCHILLINGUEComment on above:Rx for MRI ClaustrophobiaStart: 08-27-2024 End: 05-40-1927Pblfwd Ray SALDIVAR Work Phone: aNA BELLEVUEStart: 08-27-2024 End: 53-12-8584Rolqkulisa SALDIVAR Work Phone: ANA BELLEVUEStart: 08-27-2024 End: 63-34-4430Hbzaui outpatient visit 25 minutesRosanna SALDIVAR Work Phone: aNA [place]Comment on above:TIA (transient ischemic attack) (Primary Dx); Hyperlipidemia, unspecified hyperlipidemia type ([facility]); DiplopiaStart: 08-27-2024 End: 27-86-8266tiwuowfownXQOT HILLNot AvailableStart: 08-12-2024 End: 31-45-5431Dylvlykz Result Jayleen SALDIVAR Work Phone: NOMS External Department UnsolicitedStart: 08-12-2024 End: 56-94-5268Usdkfkkd Result Jayleen SALDIVAR Work Phone: NOMS External Department UnsolicitedStart: 07-30-2024 End: 11-02-6438Shkjfo outpatient visit 25 minutesRosanna Ayaz SALDIVAR Work Phone: ANA BELLEVUEComment on above:TIA (transient ischemic attack) (Primary Dx); Hyperlipidemia, unspecified hyperlipidemia type (CMS/HCC); DiplopiaStart: 07-30-2024 End: 05-41-2052mlrwrtycszVYVG HILLNot AvailableStart: 07-30-2024 End: 42-15-7520Ayvnnz [facility], incNestor Ayaz PA Work Phone: ANA BELLEVUEStart: 07-30-2024 End: 22-88-1214Awsenl Ray Ayaz PA Work Phone: ANA BELLEVUEStart: 06-10-2024 End: 22-82-3259TpgkhjEsfteppt Hohman MD Work Phone: NOMS FNR FMComment on above:Altered mental status, unspecified altered mental status typeStart: 06-02-2024 End: 71-04-8381Vqhuboaol encounterHilaperfecto Baugh MD Work Phone: NOMS CI ENTComment on above:speech therapyStart: 05-13-2024 End: 21-32-3278Oaxhha outpatient new 45 minutesChristopher Coy DO Work Phone: ANA BELLEVUEComment on above:TIA (transient ischemic attack) (Primary Dx); Hyperlipidemia, unspecified hyperlipidemia type (CMS/HCC)Start: 05-13-2024 End: 02-49-5344fvksndnrmiZBLIRZHPZRL HASSETTNot AvailableStart: 05-13-2024 End: 50-24-1369Rjrojx flowsheetChristopher Coy DO Work Phone: ANA BELLEVUEStart: 05-13-2024 End: 38-45-1326Qldqbh flowsheetChristopher Coy DO Work Phone: ANA BELLEVUEStart: 04-29-2024 End: 26-97-3760Nzrtjrlisa Saleem MD Work Phone: NOMS FNR FMStart: 04-29-2024 End: 88-32-2906Euaqnx Nikole Saleem MD Work Phone: NOMS FNR FMStart: 04-29-2024 End: 05-53-4640Zrzgsaijegsf care manage srvc 7 day dischargeKay Saleem MD Work Phone: NOMS FNR FMComment on above:TIA (transient ischemic attack) (Primary Dx); 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; Benign essential hypertension (CMS/HCC); Obesity, morbid (CMS/HCC); Mixed hyperlipidemia (CMS/HCC); Body mass index (BMI) 36.0-36.9, adult; Alzheimer's disease with early onset (CODE) (CMS/HCC)Start: 04-29-2024 End: 94-72-3313tlfaqjhrrgQWOFOESQ HOHMANNot AvailableStart: 59-15-2486watkdifjuoEast [facility] Ambulatory PPGStart: 04-22-2024 End: 40-53-4234Qachgrpqq department patient visitFLORENCE COMMUNITY [facility] Ramandeep [facility] Ambulatory PPGStart: 02-21-2024 End: 77-22-9807Mwfuht Nikole Saleem MD Work Phone: NOMS FNR FMStart: 02-21-2024 End: 71-65-7742Hytcwp Nikole Saleem MD Work Phone: NOMS FNR FMStart: 02-21-2024 End: 95-80-1832Nxtdce outpatient visit 25 minutesKay Saleem MD Work Phone: N[facility] FNR FMComment on above:Altered mental status, unspecified altered mental status type (Primary Dx); Obstructive sleep apnea; Benign essential hypertension (CMS/HCC); Obesity (BMI 30-39.9); Mixed hyperlipidemia (CMS/HCC); Recurrent major depressive disorder, in full remission (CMS/HCC)Start: 02-21-2024 End: 99-71-1205yhyusrjjnlUWXFEQOF HOHMANNot AvailableStart: 01-31-2024 End: 87-76-9250Nphedvrkv encounterSkatia Young RMAProMedsoutheast health medical center Physicians Pulmonary/Sleep MedicineStart: 01-29-2024 End: 82-59-6388Dnpabi outpatient visit 15 Chetan Newman MD Work Phone: [facility] Pulmonary/Sleep MedicineComment on above:BESSIE (obstructive sleep apnea) (Primary Dx); Benign essential hypertension; Class 2 severe obesity due to excess calories with serious comorbidity and body mass index (BMI) of37.0 to 37.9 in adult ([facility])Start: 01-29-2024 End: 25-35-8931jlkjyyzmemVWZOE E DUNNTrinity Health System [facility] Campus Ambulatory PPGStart: 01-01-2024 End: 04-52-5018Undcuo Alex Baugh MD Work Phone: NOM[facility] CI ENTStart: 01-01-2024 End: 70-11-8857Qsamxalisa Baugh MD Work Phone: NOM[facility] CI ENTStart: 01-01-2024 End: 26-39-0250Efmyuj outpatient new 45 Pablito Baugh MD Work Phone: N[facility] CI ENTComment on above:Muscle weakness (Primary Dx); Muscle tension dysphoniaStart: 01-01-2024 End: 86-84-6983wiqnqnsgkqSOUCYA H TIMMISNot AvailableStart: 12-20-2023 End: 53-03-4250jzomzkldlsJZBODZON HOHMANNot AvailableStart: 12-20-2023 End: 99-34-6623Rjijuf outpatient visit 25 Pedro Luis Saleem MD Work Phone: NOM[facility] FNR FMComment on above:Memory loss (Primary Dx); Bilateral hearing loss, unspecified hearing loss type; BESSIE (obstructive sleep apnea); DysphoniaStart: 12-20-2023 End: 27-84-6266Bfoiyflisa Saleem MD Work Phone: [facility] FNR FMStart: 12-20-2023 End: 30-73-2795Ndsgvmlisa Saleem MD Work Phone: noms FNR FMStart: 12-12-2023 End: 21-44-3320Vignnu Caseycurtis Saldana CCC-A Work Phone: noMS CI AUDStart: 12-12-2023 End: 54-35-9703Gjgodv flowsheetDemckenzie Saldana CCC-A Work Phone: N[facility] CI AUDStart: 12-12-2023 End: 46-81-0366Fkycmcon SupportDemckenzie Saldana CCC-A Work Phone: noms CI AUDComment on above:Bilateral hearing loss, unspecified hearing loss type (Primary Dx)Start: 12-12-2023 End: 24-85-7656esvcbtvqojUGBWLIF A MCGILLNot AvailableStart: 11-08-2023 End: 22-35-0149ekqeztsjnvPAYOPEST HOHMANNot AvailableStart: 10-29-2023 End: 61-06-6254swdcwtyjigLGNURDXA DENBESTENNot AvailableStart: 08-10-2023 End: 16-64-3318Ohliwiigz Brooklyn Young [facility] HospitaloMedsoutheast health medical center Physicians Pulmonary/Sleep MedicineStart: 08-07-2023 End: 30-34-1614Fvbdwv outpatient new minutesChuck Newman MD Work Phone: [facility] Pulmonary/Sleep MedicineComment on above:BESSIE (obstructive sleep apnea) (Primary Dx); Other depression; Primary hypertensionStart: 08-07-2023 End: 56-10-5979njmzhrvsxbMFUDM E DUNNTrinity Health System East Campus Ambulatory PPGStart: 07-04-2023 End: 20-82-0157Ugraoxrc SupportUc [facility] [address] [place] [address] - Sleep DisordersComment on above:Obstructive sleep apneaStart: 07-04-2023 End: 36-20-1519skcnftqlozZCPDRGFIMarcela Ashrafca Caledonia HospitalStart: 78-98-1661Xjftevumm encounterRoxrosanna PadillaProMedica Physicians Pulmonary/Sleep MedicineStart: 79-08-9063Nttogohgi encounterKay Saleem MD Work Phone: Pro[facility] - Sleep DisordersComment on above:Sleep Lab (HST)Start: 03-12-2019 End: 30-43-3351Uboedtr encounter procedureWARC Jamescility:H1 Procedures DateProcedureProcedure DetailPerforming ClinicianStart: 87-71-3713Lrnaoqei blood count with white cell differential, automatedChristy A Bajwa CARRIAGE FEEDER Work Phone: Start: 41-55-0970Olvaifjfecbfp metabolic panelChristy A Bajwa CARRIAGE FEEDER Work Phone: Start: 47-23-6549Guwqe panelChristy A Bajwa CARRIAGE FEEDER Work Phone: Start: 98-99-8824QC HEAD/BRAIN WO CONGeneric External Data ProviderStart: 75-01-7162Iomnaahw assay non-endocrine specify receptorRosanna SALDIVAR Work Phone: Start: 77-80-4460Uxcsk dip stick/tablet rgnt non-auto w/o micrscpKay Saleem MD Work Phone: Start: 89-82-9477Kdtrfeobdglmk metabolic panelKay Saleem MD Work Phone: Start: 78-36-4456DkwtzlsuxyuFbhrgwc McGill CCC-A Work Phone: Plan of Treatment DateCare ActivityDetailAuthorStart: 76-49-9624Wesjmfswj for malignant neoplasm of colonNOMS HealthcareStart: 06-16-2026Medicare Annual Wellness (AWV)Medicare Annual Wellness (AWV)NOM[facility] HealthcareStart: 36-79-8936Nbseu BMI ScreeningAdult BMI ScreeningProSt. Anthony'S Hospital SystemStart: 34-37-8951Pphulom ScreeningTobacco ScreeningProSt. Anthony'S Hospital SystemStart: 30-40-6293Sjhxztqmi vaccinationNOMS HealthcareStart: 11-19-2024 End: 68-30-6530Koetiyk encounter duclbpsid72/13/2025 11:00 AM EDT Office Visit CALEB PALACIOS [address] [place] [phone] Carole Cespedes DO [address] [place] [address] CALEB SCHILLINGUEStart: 09-22-2024 End: 46-60-2667Jpxpmeu encounter zcchgsual87/16/2025 10:30 AM EDT Office Visit [facility] FNR FM [address] [facility] [place] [address] Leyla Bajwa NP [address] [facility] [place], [place] [address] ArrivedNOMS FNR FMComment on above:ArrivedStart: 06-14-2025Medicare Annual Wellness (AWV)Medicare Annual Wellness (AWV)NOM[facility] HealthcareStart: 08-28-2024 End: 46-31-0112Saxdgoc encounter snkyhkbgq83/22/2025 3:40 PM EDT Office Visit CALEB PALACIOS [address] [place] [phone] Rosanna Jacome PA [address] [place] [address] CALEB ROJOtart: 08-27-2024 End: 16-28-1122Tpbxsyf encounter jfmydaeou75/21/2025 9:40 AM EDT Office Visit CALEB PALACIOS [address] [place] [phone] Rosanna Jacome PA [address] [place] [address] Gabrielle PALACIOSComment on above:ArrivedStart: 32-08-0078Mbgie BMI ScreeningAdult BMI ScreeningProUniversity Hospitals Lake West Medical Centerca [facility] SystemStart: 08-62-3294Dnschqh ScreeningTobacco ScreeningProUniversity Hospitals Lake West Medical Centerca [facility] SystemStart: 07-31-2024 End: 42-14-6593SV Brain WO contrastMR brain wo contrast Imaging Routine Diplopia Expected: 07/31/2024 (Approximate), Expires: 07/31/2025[facility] HealthcareComment on above:Expected: 07/31/2024 (Approximate), Expires: 07/31/2025Start: 07-30-2024 End: 62-62-1338Znjcijb encounter procedureANA BELLEVUEComment on above:Arrived Start: 07-30-2024 End: 69-06-2184Oghywlqwpebwm receptor, bindingAcetylcholine receptor, binding Lab Routine Diplopia Expected: 07/30/2024 (Approximate), Expires: 07/30/2025[facility] Healthcare Work Phone: comment on above:Expected: 07/30/2024 (Approximate), Expires: 07/30/2025Start: 07-30-2024 End: 84-19-6987Wysgblpakhtej receptor, blockingAcetylcholine receptor, blocking Lab Routine Diplopia Expected: 07/30/2024 (Approximate), Expires: 07/30/2025[facility] HealthcareComment on above:Expected: 07/30/2024 (Approximate), Expires: 07/30/2025Start: 07-30-2024 End: 19-31-1358Mflhtwcyosdxw receptor, modulatingAcetylcholine receptor, modulating Lab Routine Diplopia Expected: 07/30/2024 (Approximate), Expires: 07/30/2025[facility] HealthcareComment on above:Expected: 07/30/2024 (Approximate), Expires: 07/30/2025Start: 07-30-2024 End: 65-61-3220MLOX ANTIBODY TESTMUSK ANTIBODY TEST Lab Routine Diplopia Expected: 07/30/2024 (Approximate), Expires: 07/30/2025[facility] HealthcareComment on above:Expected: 07/30/2024 (Approximate), Expires: 07/30/2025Start: 07-30-2024 End: 53-82-2102Wcsrpipukwx [Units/volume] in Serum or PlasmaTSH Lab Routine Diplopia Expected: 07/30/2024 (Approximate), Expires: 07/30/2025[facility] Comment on above:Expected: 07/30/2024 (Approximate), Expires: 07/30/2025Start: 05-13-2024 End: 96-90-0135Tnnlftd encounter procedureANA BELLEVUEComment on above:Arrived Start: 04-29-2024 End: 24-01-0152Ezydjqo encounter dbqklagxn45/21/2025 1:30 PM EST Office Visit [facility] [address] [place] [phone] Kay Saleem MD [address] [place] [address] ArrivedNOMS FNR FMComment on above:ArrivedStart: 32-46-0799Pttqpvkhr vaccination Influenza Vaccine (#1)[facility] HealthcareComment on above:Postponed from 12/09/2023 (Patient Refused)Start: 02-21-2024 End: 64-16-0370Vyszkgl encounter bqdjymxkw05/14/2024 11:30 AM EST Office Visit [facility] [address] [place] [phone] Kay Saleem MD [address] [place] [address] [facility] FMStart: 01-01-2024 End: 89-54-8560Baarpog encounter btxvlugux71/24/2024 10:30 AM EDT Office Visit [facility] [address] [facility] [address] [place] [address] Carlos Baugh MD [address] [facility] [address] [place] [address] DysphoniaNOMS CI ENTComment on above:DysphoniaStart: 12-20-2023 End: 13-59-8238Ujtnrkc encounter isdaettgl54/12/2024 2:30 PM EDT Office Visit [facility] [address] [facility] [place] [phone] Kay Saleem MD [address] [place] [address] [facility] FNR FMStart: 12-12-2023 End: 05-49-4208Xhzeiyrb Nmzmwdw7012/12/2023 10:30 AM EDT Clinical Support [facility] [address] [place] [address] Mary Saldana, [facility] [address] [place] [address] ArrivedNOMS CI AUDComment on above:ArrivedStart: 12-09-2023 Influenza vaccinationNOMS HealthcareStart: 11-06-2023 End: 90-54-8156Zksczbt encounter dhzfqaqaj78/30/2024 9:30 AM EDT Office Visit [facility] [address] [place] [address] Chuck Newman MD [address] [address] [facility] MedicineStart: 08-07-2023 End: 59-69-4438Kzkgzbb encounter /30/2024 9:30 AM EDT Office Visit [facility] [address] [place] [address] Chuck Newman MD [address] [address] [facility] MedicineStart: 07-04-2023 End: 38-09-7576Dhrdewcs Jjomtbm2607/04/2023 10:30 AM EDT Clinical Support [facility] [address] [place] [address] [facility]sdkjq[facility] Start: 48-79-8963Rtnlmybdb vaccinationInfluenza VaccinePremier Health [facility] Start: 60-69-6302Iszdc BMI ScreeningAdult BMI ScreeningPremier Health Atrium Medical Center Start: 66-57-4863NUuT,Tdap and Td Vaccines (2 - Td or Tdap)DTaP,Tdap and Td Vaccines (2 - Td or Tdap)[facility]: 61-82-4891Lvhz Risk ScreeningFall Risk ScreeningUNC Health [facility] - Morgantontart: 06-10-2014 Administration of varicella zoster vaccineZoster (Shingles) Vaccine (2 of 3) [facility]: 41-99-8807Mzfttkrygnikhb of varicella zoster vaccineZoster (Shingles) Vaccine (1 of 2)[facility]: 72-28-2454ZMsF,Tdap and Td Vaccines (1 - Tdap)DTaP,Tdap and Td Vaccines (1 - Tdap)[facility]: 86-11-0172Grmaq BMI Follow Up PlanAdult BMI Follow Up PlanUNC Health Blue Ridge - Morgantontart: 23-10-7266Iybonnbydu Screening Depression ScreeningUNC Health [facility] Ridge - [facility]organtontart: 11-78-0394Tpzwqiv Screening Tobacco ScreeningUNC Health [facility] Ridge - Morgantontart: 1951Medicare Annual Wellness VisitMedicare Annual Wellness VisitUNC Health Blue Ridge - Morgantontart: 16-03-1545Lujlfsyhv for malignant neoplasm of colonR[facility]ON [facility] Immunizations Immunization DateImmunizationNotesCare TorongmyAazhkzkf01-05-8197Nzqwzogcfwdd Conjugate PCV 20De[facility]- Work Phone: [facility] HospitalNqjmaivvuf56-64-0646Zckasb Purple Cap SARS-CoV-2 VaccinationAdventHealth Central [facility] Work Phone: [facility] HospitalBphqounfow81-92-3278Kdkyrf Purple Cap SARS-CoV-2 VaccinationDeHollywood Medical Center Work Phone: [facility] HospitalImbcglewhl34-75-8553Itdxqt Purple Cap SARS-CoV-2 VaccinationAdventHealth [facility] Work Phone: [facility] HospitalTdktvyqais53-33-8005zuafzsexlkyr conjugate vaccine, 13 valNorthern [facility] Work Phone: [facility] HospitalAshelowtrj75-64-3096fljlyhstzvjw conjugate vaccine, 13 valG[facility] Work Phone: [facility] HospitalWmaqajrgmw68-46-5802qikeqzpcrkjc polysaccharide vaccine, 23 valentH[facility] Work Phone: [facility] HospitalZehiyllggy07-75-5090xseicrefupde vaccine, unspecified formulationDeHCA [facility]-A Work Phone: [facility] HospitalVmmonowrdu85-60-5119rpdjgj vaccine, liveDeborah [facility] Work Phone: [facility] HospitalXkoaykahqt24-76-2428anklor vaccine, unspecified formulationChuck Newman MD Work Phone: [facility]01-01-2009tetanus toxoid, reduced diphtheria toxoid, and acellular pertussis vaccine, adsorbedDeHCA [facility]-A Work Phone: [facility] Payers DatePayer CategoryPayerPolicy [id number] HMOANTHEM MEDICARE Member Subscriber Plan / Payer (Effective 2023-Present) Name: Yaima Lester Relation to Subscriber: Self Name: Yaima Lester Payer ID: [id number] (NAIC) Group ID: [id number] Type: Not on file Address: [place] [id number] 2022Medicare (Managed Care) ANTHEM MEDICARE ADVANTAGE Member Subscriber Plan / Payer (Effective 2021- Present) Name: Yaima Lester Relation to Subscriber: Self Name: Yaima Lester Payer ID: Not on file Group ID: [id number] Type: Not on file Address: [place] [id number] 2022Medicare [id number] MUTUAL MMO TRADITIONAL [id number] 2018-Present [phone] [address] [place], [place] [id number] 2016Medicare [id number] [id number] 1960 [id number] 2.16.840.1.249803.3.579.2.593 [id number] 2.16.840.1.757023.3.579.2.162336-52-8712Ctnzzad [id number] 2.16.840.1.677120.3.57[id number] 2.16.840.1.194256.3.57[id number] 2.16.840.1.675236.3.57[id number] 2.16.840.1.907936.3.57[id number] 2.16.840.1.681451.3.57[id number] 2.16.840.1.167260.3.57[id number] 2.16.840.1.412530.3.57[id number] 2.16.840.1.918171.3.57[id number] 2.16.840.1.583410.3.57[id number] 2.16.840.1.927696.3.579.2.[id number] 2.16.840.1.782023.3.579.2.[id number] 2.16.840.1.190855.3.57[id number] 2.16.840.1.720152.3.579.2.[id number] 2.840.1.066198.3.579.2.[id number] 2.16.840.1.743534.3.579.2.[id number] 2.16.840.1.465125.3.579.2.441266-86-0292Mvsbjih1063139 2.16840.1.932181.3.579.2.382782-45-9256Hjjdyfs9213903 2.840.1.125223.3.579.[id number] 2.840.1.443918.3.579.[id number] 2.16840.1.971448.3.579.2.1259 Social History DateTypeDetailFacilityStart: 06-04-2018 End: 27-19-2537Dorlict smoking status NHISNever smoked tobaccoNODE Healthcare Start: 06-04-2018 End: 89-52-7384Bgcheki use and exposureSmokeless tobacco non-userUK Healthcare SystemStart: 02-21-2024 End: 96-79-2966Hlnhskqye beverage intakeEx-drinker (finding)[facility] Start: 02-21-2024 End: 59-94-7222Implknh of Social functionNODE HealthcareStart: 02-21-2024 End: 79-05-0417Cklxlef use panelNODE HealthcareStart: 24-16-6602Jsiioxk Comment Caffine: 2 cups dailyRIVERTON HOSPITAL HealthcareStart: 97-89-8877Jws assigned at [facility] centerNot on fileUK Healthcare SystemStart: 31-27-4049Psrflo identityIdentifies as male gender (finding)[facility] HospitalStart: 08-07-2023 End: 24-62-8049Qhcyqgdqm beverage intakeCurrent drinker of alcohol (finding) [facility] CenterChildcareUnknowWooster Community Hospital SystemStart: 06-04-2018 Alcohol CommentsometimeThedaCare Regional Medical Center–App[facility] SystemStart: 05-92-7595MntHlxm (finding)[facility] Medical CenterTolawrence+memorial hospital smoking status NHISUnknown if ever smokedCleveland Clinic [facility] Work Phone: Start: 09-66-0168Dwb Assigned At [facility] Functional Status SjtbQknoyxjsmkDjvtqmLvtfcufa32-67-7897Ktqcknn Health Questionnaire 2 item (PHQ- 2) [Reported][facility] Clinical Notes 06-13-2023 to 12-03-2024 Note Date & UabxTpurBotswyyo91-02-6485 Telephone encounter Note* Telephone Encounter - Merlene Porter - 12/03/2024 10:44 AM EDT Received as voicemail: Okay. I am almost done. I swear I am calling from [employer] to get a prescription refill for a patient for Yaima Lester. Data 2050 for the Danza pill, 5 mg tablets with Pallavi Marsh thatwas [employer] here in [place]. Thank you by. [facility] HospitalJgecperswk46-88-5367 Miscellaneous Notes* Telephone Encounter - Merlene Porter - 12/03/2024 10:44 AM EDT Received as voicemail: Okay. I am almost done. I swear I am calling from [employer] to get a prescription refill for a patient for Yaima Lester. Data 2050 for the Danza pill, 5 mg tablets with Pallavi Marsh thatwas [employer] here in [place]. Thank you by. documented in this encounterCedar County Memorial HospitalHdkscffoir88-14-2072 History of Present illness Narrative* Leyla Bajwa, CURTIS - 09/22/2024 10:30 AM EDT Images from the original note were not included. Yaima Lester is a 74 y.o. male presents with chief complaint of Medicare Annual Wellness Visit Subsequent Over the past 2 weeks, how often have you been bothered by any of the following problems? Little interest or pleasure in doing things: Not at all Feeling down, depressed, or hopeless: Not at all Patient Health Questionnaire-2 Score: 0 Mart Fall Risk History of Falling, Immediate or Within 3 Months: Yes Secondary Diagnosis: No Ambulatory Aid: Walks without aid/bedrest/nurse assist Intravenous Therapy/Heparin Lock: No Gait/Transferring: Weak Mental Status: Forgets limitations Mart Fall Risk Score: 50 Health Risk Assessment Form Do you need help eating, bathing, using the toilet, dressing, or getting around your home?: No Can you prepare your own meals?: Yes Can you do your own housework without help?: Yes Can you shop for groceries or clothes without help?: Yes Do you exercise for about 20 minutes 3 or more days a week?: No How confident are you that you can control and manage most of your health problems?: Somewhat confident Can you mange your money, credit cards and accounts, pay bills and taxes?: Yes Vision Screening: Not done Hearing Screening: Not done Cognitive Screening Three Word Registration: Banana, [place], Chair Clock Drawing: Normal Clock - 2 Three Word Recall: All 3 words correct - 3 Total Score (0-5 Points): 5 Pain Assessment Pain Score: 0 - No pain HPI: HPI Patient is present for a Medicare wellness. 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 REVIEW OF SYMPTOMS: Review of Systems Constitutional: Negative for chills and fatigue. HENT: Negative for ear discharge, ear pain, rhinorrhea and sore throat. Eyes: Negative for pain and redness. Respiratory: Negative for cough and chest tightness. Cardiovascular: Negative for chest pain and palpitations. Gastrointestinal: Negative for abdominal distention and abdominal pain. Genitourinary: Negative for difficulty urinating and frequency. Musculoskeletal: Negative for arthralgias and gait problem. Skin: Negative. Neurological: Negative for dizziness and numbness. Endocrine: Negative. Allergic/Immunologic: Negative. OBJECTIVE: Visit Vitals Smoking Status Never Physical Exam Vitals reviewed. Constitutional: Appearance: Normal appearance. HENT: Head: Normocephalic. Right Ear: Hearing and tympanic membrane normal. Left Ear: Hearing and tympanic membrane normal. Nose: Nose normal. Right Turbinates: Not enlarged. Left Turbinates: Not enlarged. Right Sinus: No maxillary sinus tenderness or frontal sinus tenderness. Left Sinus: No maxillary sinus tenderness or frontal sinus tenderness. Mouth/Throat: Lips: Elsa. Mouth: Mucous membranes are moist. Pharynx: Oropharynx is clear. Uvula midline. Tonsils: No tonsillar exudate. Eyes: General: Lids are normal. Vision grossly intact. Gaze aligned appropriately. Extraocular Movements: Extraocular movements intact. Conjunctiva/sclera: Conjunctivae normal. Neck: Thyroid: No thyroid mass or thyromegaly. Vascular: No carotid bruit. Trachea: Trachea normal. Cardiovascular: Rate and Rhythm: Normal rate and regular rhythm. Pulses: Normal pulses. Heart sounds: Normal heart sounds. Pulmonary: Effort: Pulmonary effort is normal. Breath sounds: Normal breath sounds and air entry. Abdominal: General: Abdomen is flat. Bowel sounds are normal. Palpations: Abdomen is soft. Musculoskeletal: Cervical back: Full passive range of motion without pain, normal range of motion and neck supple. Lymphadenopathy: Cervical: No cervical adenopathy. Skin: General: Skin is warm. Capillary Refill: Capillary refill takes less than 2 seconds. Neurological: Mental Status: He is alert and oriented to person, place, and time. Sensory: Sensation is intact. Motor: Motor function is intact. Coordination: Coordination is intact. Psychiatric: Attention and Perception: Attention and perception normal. Mood and Affect: Mood and affect normal. Speech: Speech normal. Behavior: Behavior is cooperative. Thought Content: Thought content normal. ASSESSMENT AND PLAN: Assessment/Plan Diagnoses and all orders for this visit: Encounter for annual wellness exam in Medicare patient - CBC and differential; Future - PSA; Future - Lipid panel; Future - Comprehensive metabolic panel; Future Wellness performed at today. Height, weight, BMI, problem list, and immunizations records reviewed. Dental care discussed with patient. Encouraged annual vision screenings and semi-annual dental care. Encouraged healthy eating habits, limit or eliminate junk food and sources of excess calories. Encouraged regular periods of exercise, 150 minutes of exercise weekly or amount appropriate to current level of function. Discussed family/friend/social support and importance of maintaining emotional connections. Follow up annually and as needed. Screening for prostate cancer - PSA; Future Benign essential hypertension -stable continue on current medications. - Comprehensive metabolic panel; Future Obstructive sleep apnea-compliant with wearing cPAP and benefits with less daytime sleepiness and controlled blood pressure. 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 - Lipid panel; Future Diplopia Muscle tension dysphonia Obesity (BMI 30-39.9) Recurrent major depressive disorder, in full remission Hearing loss, unspecified hearing loss type, unspecified laterality Hypercholesteremia Sensorineural hearing loss, asymmetrical documented in this encounterCedar County Memorial HospitalIzqmeachby08-34-1892 Telephone encounter Note* Telephone Encounter - Bushra Coelho MA - 09/04/2024 3:29 PM EDT Called and spoke to patients , she states she will ask him if he is ok with getting the labs redrawn. I refaxed the ordered if they do decide to get them. Patient was last seen by Dr. Millard on 07/10, that note is scanned in to patients chart [facility] HospitalDsrgdfgziv71-32-6699 Miscellaneous Notes* Telephone Encounter - Bushra Coelho MA - 09/04/2024 3:29 PM EDT Called and spoke to patients , she states she will ask him if he is ok with getting the labs redrawn. I refaxed the ordered if they do decide to get them. Patient was last seen by Dr. Millard on 07/10, that note is scanned in to patients chart * Telephone Encounter - Bushra Coelho MA - 09/02/2024 2:20 PM EDT Called number provided and [facility] * Telephone Encounter [...] Rosanna SALDIVAR on 08/27/24) documented in this encounterCedar County Memorial HospitalLmfovvmcli19-40-1397 Telephone encounter Note* Telephone Encounter - Bushra Coelho MA - 09/02/2024 2:20 PM EDT Called number provided and had to LMTCB x 1 [facility] HospitalOtunpvkgbh67-50-0489 Telephone encounter Note* Telephone Encounter - NOVA Fletcher - 09/02/2024 [...] date .... Per Rosanna SALDIVAR on 08/27/24) [facility] HospitalYfgdmcursp75-18-9096 History of Present illness Narrative* JANNA Sarmiento - 08/27/2024 9:40 AM EDT Images from the original note were not included. Chief Complaint: Stroke Subjective Yaima Lester, 74 y.o., male STROKE -on daily ASA [...] SpO2: 94% Body mass index is 36.77 kg/m . Weight: 249 lb Neurologic exam: Mental status: [...] , wrist extensors , wrist flexor , brief writer strength 5/5. LUE Strength deltoid , biceps , triceps , wrist extensors , wrist flexor , brief writer strength 5/5. RLE Strength illopsoas, quadriceps, tibialis [...] reflex 0 . Donovan's sign negative. Coordination: Ebxpgw-hj-ommf testing and rapid alternating movements are normal, [...] ischemia I have reviewed hospital admission to [facility] on 04/21/2024 with discharge on 04/22/2024. He [...] and speech disturbance. He was admitted to [facility] in mid April 2024. He had an [...] instructions Rosanna Jacome PA-C documented in this encounterCedar County Memorial HospitalXymhrumsgx32-46-3851 History of Present illness Narrative* JANNA Sarmiento - 07/30/2024 4:20 PM EDT Images from the original note were not included. Chief Complaint: Stroke Subjective Yaima Lester, 74 y.o., male Patient is here today for follow up for stroke. He is accompanied by his . . He is on the aspirin 81 mg daily. He had not been on this previously. He denies numbness or imbalance currently. He states that developed double vision after the TIA with symptoms starting in June 2024. He is still having some difficulty with short term memory. Review of Systems Constitutional: Negative for appetite [...] Comment: Caffine: 2 cups daily Allergies: Atorvastatin There were no vitals filed for this visit. There is no height or weight on file to calculate BMI. Neurologic exam: Mental status: Awake, alert to [...] , wrist extensors , wrist flexor , brief writer strength 5/5. LUE Strength deltoid , biceps , triceps , wrist extensors , wrist flexor , brief writer strength 5/5. RLE Strength illopsoas, quadriceps, tibialis [...] reflex 0 . Donovan's sign negative. Coordination: Rymdlq-ng-okfh testing and rapid alternating movements are normal, slight difficulty on the right but able to make target Rapid alternating movements normal Heel to isaac normal Gait: Normal Review and summary of old records: CT angiogram of the head and neck on 04/21/2024: Minimal atherosclerotic disease. Otherwise unremarkable angio of the head and neck. Degenerative disc disease noted of the cervical spine. CT of the brain without contrast on 04/21/2024: No acute process. Mild old microvascular changes and age-related atrophy. MRI of the brain without contrast on 04/21/2024: No acute ischemia I have reviewed hospital admission to [facility] on 04/21/2024 with discharge on 04/22/2024. He [...] and speech disturbance. He was admitted to [facility] in mid April 2024. He had an [...] of head and neck at that time. Will also have him evaluated for myasthenia gravis and check TSH. I will obtain a brain MRI to assess for intracranial process that may be contributing to his symptoms. PLAN - I will obtain blood work for myasthenia gravis and TSH - I will order an MRI of the brain to evaluate for intracranial changes such as a stroke, tumor, mass, or lesion that would contribute to his symptoms. -Continue aspirin for secondary stroke prevention Additional information was taken with the patient's who accompanied him to the visit today. Pt has been fully educated on their diagnosis, lab results, treatment options, follow up plan, and return instructions Rosanna Jacome PA-C documented in this encounterCedar County Memorial HospitalZmnsnqyzbg06-32-5306 Telephone encounter Note* Telephone Encounter - Cindi Baugh - 06/02/2024 2:38 PM EST Called pt to see if he has made an appt for speech therapy, spoke with his . She said he does not want to do the speech therapy. [facility] Crfkfimvjz73-18-9415 Miscellaneous Notes* Telephone Encounter - Cindi Baugh - 06/02/2024 2:38 PM EST Called pt to see if he has made an appt for speech therapy, spoke with his . She said he does not want to do the speech therapy. documented in this [facility]02-04-2025 History of Present illness Narrative* Carole Cespedes, - 05/13/2024 2:30 PM EST Images from the original note were not included. Chief Complaint: Stroke Subjective Yaima Lester, 74 y.o., male Patient presents today for a neurologic consult for stroke. He is accompanied by his . Patient was experiencing confusion, numbness in his left arm, imbalance and his speech was slurred which is what took him to the ED. He was diagnosed with Covid as well while he was in the ED. He was started on the aspirin 81 mg daily in the hospital. He had not been on this previously. Patient states the only symptoms he is still noticing is some memory impairment. He denies any blurred or double vision,headache, numbness or imbalance currently. Review of Systems Constitutional: Negative for appetite change, fatigue and fever. Respiratory: Negative for cough, shortness of breath [...] Caffine: 2 cups daily Allergies: Atorvastatin Vitals: 05/13/24 1427 BP: 150/88 Pulse: 65 SpO2: 93% Body mass index is 36.51 kg/m . weight: 247 lb 3.2 oz Neurologic exam: Mental status: Awake, alert to [...] , wrist extensors , wrist flexor , brief writer strength 5/5. LUE Strength deltoid , biceps , triceps , wrist extensors , wrist flexor , brief writer strength 5/5. RLE Strength illopsoas, quadriceps, tibialis [...] reflex 0 . Donovan's sign negative. Coordination: Kswotu-ha-qqxs testing and rapid alternating movements are normal Gait: Normal Review and summary of old records: CT angiogram of the head and neck on 04/21/2024: Minimal atherosclerotic disease. Otherwise unremarkable angio of the head and neck. Degenerative disc disease noted of the cervical spine. CT of the brain without contrast on 04/21/2024: No acute process. Mild old microvascular changes and age-related atrophy. MRI of the brain without contrast on 04/21/2024: No acute ischemia I have reviewed hospital admission to [facility] on 04/21/2024 with discharge on 04/22/2024. He [...] It is my impression that the patient trust heard a transient ischemic attack versus metabolic process secondary to COVID infection. Patient initially presented with confusion, numbness of the left arm, imbalance and speech disturbance. He was admitted to [facility] in mid April 2024. He had an [...] to the hospital admission according to records. Plan: Continue aspirin 81 mg p.o. daily for secondary stroke prevention Follow up echocardiogram in the outpatient setting with primary care Goal should be LDL less than 70 in the setting of concern for cerebrovascular disease and the patient is already on statin medication Follow up with primary care for management of blood sugar, blood pressure and cholesterol in an ongoing basis Signs and symptoms of stroke discussed in detail with the patient understands to proceed to the emergency department right away with any life-threatening signs or symptoms If his memory continues to be an issue going forward, we may look at further evaluation with neuropsych analysis. With the recent infection and or transient ischemic event, evaluation such as that isnot appropriate at this time. Additional information was taken with the patient's who accompanied him to the visit today. Pt has been fully educated on their diagnosis, lab results, treatment options, follow up plan, and return instructions documented in this encounterCedar County Memorial [id number] History of Present illness Narrative* Kay Saleem MD - 04/29/2024 1:30 PM EST Images from the original note were not included. Yaima Lester is a 74 y.o. male presents with chief complaint of Hospital Follow-up HPI: Flowsheet Row Office Visit from 04/29/2024 in [facility] with Kay Saleem MD Hospital Information ED, Hospital or Alf Facility Discharge? ED Patient has been contacted within 1 week of being seen in the ED Yes Diagnosis Stroke Discharge Date 04/24/24 Discharged To: Home Setting Engagement Medications Discharge medications reviewed and reconciled from hospital? Yes Appointments Does the patient have a primary care provider? Yes Self Management Does patient have home health no Patient Teaching Does the patient have access to their discharge instructions? Yes Wrap Up History of Present Illness The patient presents for evaluation of transient ischemic attack and COVID-19 infection. He reports a sudden onset of left-sided weakness, which he describes as a lack of communication between his brain and body. He recalls an incident where he was unable to ascend a step in his garage without using his arms for assistance. The accompanying adult female corroborates this account, adding that she was not present at the time of symptom onset. She recounts that he experienced a sore throat and chills upon awakening that morning, prompting her to prepare oatmeal for him. Upon her return from an appointment, she found him unable to form coherent sentences or words, exhibiting confusion and difficulty ambulating. Suspecting a stroke, she transported him to the hospital where he continued to exhibit abnormal behavior, such as marching instead of walking during a physical therapy session. He was discharged on Sunday evening, but it was not until Sunday afternoon that he began to regain his normal function. His balance remains slightly impaired, but his speech has returned to normal and he demonstrates understanding of his surroundings. He has a scheduled follow-up with neurology on 05/13/2024. He was not on aspirin prior to this event, but has since been prescribed a 30-day supply and is seeking advice on whether to continue this medication. He also inquires about resuming driving and other normal activities. He was diagnosed with COVID-19 during his hospital stay, although he did not test positive for influenza. He reports persistent congestion, cough, and difficulty breathing. He has been utilizing his inhaler and nebulizer, but notes that [id number] cold medications have been ineffective. He also reports a sensation of fullness in his head and increased coughing when lying down at night. MEDICATIONS Crestor, aspirin SUBJECTIVE: MEDICATIONS: Current Outpatient Medications Medication Instructions Lyn Low Dose 81 mg, Daily citalopram (CeleXA) 40 MG tablet TAKE 1 TABLET(40 MG) BY MOUTH IN THE MORNING donepezil (ARICEPT) 5 mg, Oral, Nightly GARLIC PO 100 mg, Daily ibuprofen 600 MG tablet TAKE 1 TABLET BY MOUTH EVERY 6 HOURS FOR PAIN melatonin 10 mg, Nightly Multiple Vitamin (multivitamin) capsule 1 capsule, Daily rosuvastatin (Crestor) 10 MG tablet TAKE 1 TABLET(10 MG) BY MOUTH IN THE MORNING I have reviewed and reconciled the history and medication list with the patient today. REVIEW OF SYMPTOMS: Review of Systems OBJECTIVE: Visit Vitals BP 130/82 Pulse 61 Resp 18 Ht 5' 9 Wt 246 lb SpO2 97% BMI 36.33 kg/m Smoking Status Never BSA 2.34 m Physical Exam Vitals and nursing note reviewed. Constitutional: Appearance: Normal appearance. HENT: Head: Normocephalic and atraumatic. Right Ear: Tympanic membrane normal. Left Ear: Tympanic membrane normal. Nose: Nose normal. Mouth/Throat: Mouth: Mucous membranes are moist. Pharynx: Oropharynx is clear. Cardiovascular: Rate and Rhythm: Normal rate and regular rhythm. Pulses: Normal pulses. Heart sounds: Normal heart sounds. Pulmonary: Effort: Pulmonary effort is normal. Breath sounds: Normal breath sounds. Musculoskeletal: Cervical back: Normal range of motion and neck supple. Neurological: General: No focal deficit present. Mental Status: He is alert and oriented to person, place, and time. Mental status is at baseline. Cranial Nerves: No cranial nerve deficit. Comments: He swayed once with the Rhomberg but was able to right himself and then maintain. FTN testing and CHRISTINE of hands were normal. Psychiatric: Mood and Affect: Mood normal. ASSESSMENT AND PLAN: Assessment & Plan 1. Transient Ischemic Attack (TIA). The neurologist's diagnosis indicates transient neurologic symptoms in the context of a COVID-19 infection, suggesting a TIA and potential underlying COVID-19 encephalopathy. The extent to which COVID-19 contributed to his confusion remains uncertain. His cholesterol levels, monitored this summer, are well-managed with Crestor. During his hospital stay, his blood pressure was elevated, but it is within normal range today. His blood glucose levels are also well-controlled. All risk factors and tests for stroke causes have yielded normal results. However, this does not rule out the possibility of a stroke. It is plausible that COVID-19 may have played a role in this event, although the exact contribution is unclear. COVID-19 has likely contributed to his confusion. He is advised to maintainhis scheduled follow-up with neurology on 05/13/2024. He is instructed to seek immediate medical attention at the ER if any symptoms recur. He is advised to continue his aspirin regimen long-term. Heis also advised to abstain from driving until cleared by neurology. 2. COVID-19 Infection. He tested positive for COVID-19 during his hospital stay. He reports congestion, difficulty breathing, and persistent coughing. His lungs sound clear with no wheezing or rattling. He is advised to continue using [id number] medications for symptom relief. No changes to his current medications are necessary at this time. 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 * Kay Saleem MD - 02/21/2024 6:19 PM ESTAssociated Problem(s): Obstructive sleep apnea Doing great on the CPAP. Compliant with CPAP every night. * Kay Saleem MD - 02/21/2024 11:30 AM EST Images from the original note were not included. Yaima Lester is a 73 y.o. male presents with chief complaint of 2 weeks for weaning of donzepil. Uses cpap everynight which is helping him get good sleep. HPI: HPI History of Present Illness The patient presents for evaluation of forgetfulness. He is accompanied by an adult female. He reports experiencing forgetfulness and irritability. He has been gradually reducing his intake of Aricept, a medication used to treat Alzheimer's disease, but this has not been successful. He attempted to reduce his Aricept dosage from 10 mg to 5 mg, but found it difficult to manage, so he returned to the 10 mg dosage. Since then, he has weaned himself completely off, but does not feel well. He forgot to turn the car off. He forgot to lock the doors. He reports no side effects from taking donepezil alone, but experienced side effects when it was combined with Namenda. He has been using a sleep apnea machine, which has improved his sleep quality. He has been observedto yell in his sleep, a behavior that had not been noted for some time. He reports no feelings of fatigue or tiredness throughout the day. He also reports no symptoms of urinary tract infection or frequent urination. He appears anxious but does not report any panic attacks. SUBJECTIVE: MEDICATIONS: Current Outpatient Medications Medication Instructions citalopram (CeleXA) 40 MG tablet TAKE 1 TABLET(40 MG) BY MOUTH IN THE MORNING GARLIC PO 100 mg, Daily ibuprofen 600 MG tablet TAKE 1 TABLET BY MOUTH EVERY 6 HOURS FOR PAIN melatonin 10 mg, Nightly Multiple Vitamin (multivitamin) capsule 1 capsule, Daily rosuvastatin (Crestor) 10 MG tablet TAKE 1 TABLET(10 MG) BY MOUTH IN THE MORNING I have reviewed and reconciled the history and medication list with the patient today. REVIEW OF SYMPTOMS: Review of Systems OBJECTIVE: Visit Vitals BP 110/68 Pulse 69 Ht 5' 9 Wt 246 lb SpO2 95% BMI 36.33 kg/m Smoking Status Never BSA 2.34 m Physical Exam Vitals and nursing note reviewed. Constitutional: Appearance: Normal appearance. HENT: Head: Normocephalic and atraumatic. Right Ear: Tympanic membrane normal. Left Ear: Tympanic membrane normal. Nose: Nose normal. Mouth/Throat: Mouth: Mucous membranes are moist. Pharynx: Oropharynx is clear. Cardiovascular: Rate and Rhythm: Normal rate and regular rhythm. Pulses: Normal pulses. Heart sounds: Normal heart sounds. Pulmonary: Effort: Pulmonary effort is normal. Breath sounds: Normal breath sounds. Musculoskeletal: Cervical back: Normal range of motion and neck supple. Skin: General: Skin is warm and dry. Neurological: General: No focal deficit present. Mental Status: He is alert. Psychiatric: Mood and Affect: Mood normal. ASSESSMENT AND PLAN: Assessment & Plan 1. Forgetfulness. He reports increased forgetfulness and short temper after weaning off Aricept. He has been leaving the car running in the garage and forgetting to close the shop. He also yells in his sleep, which had previously stopped. A complete blood count (CBC) and urinalysis will be conducted to check for anyacute changes. He will restart donepezil at 5 mg to see if symptoms improve. If symptoms do not improve, a neurology consultation will be considered to rule out other causes. 2. Sleep Apnea. He continues to use his sleep apnea machine every night without issues and wakes up feeling rested.No changes are needed in the current treatment plan. 3. Anxiety. He appears anxious but does not experience panic attacks. This will be monitored, and if symptoms persist or worsen, further evaluation and treatment options will be considered. Assessment/Plan Problem List Items Addressed This Visit Benign essential hypertension (CMS/HCC) Stable BP on no medications. Hyperlipidemia (CMS/HCC) Obesity (BMI 30-39.9) Obstructive sleep apnea Doing great on the CPAP. Compliant with CPAP every night. Recurrent major depressive disorder, in full remission (CMS/HCC) Other Visit Diagnoses Altered mental status, unspecified altered mental status type - Primary Relevant Medications donepezil (Aricept) 5 MG tablet Other Relevant Orders CBC POCT Urinalysis dipstick (Completed) Comprehensive metabolic panel documented in this encounterCedar County Memorial [id number] Miscellaneous Notes* Telephone Encounter - KRYSTAL Barragan - 01/31/2024 2:25 PM EDT PAP mask and supplies order with supportive documentation faxed to [facility]. documented in this [facility]Prem[facility]10-24-[facility] Telephone encounter Note* Telephone Encounter - KRYSTAL Barragan - 01/31/2024 2:25 PM EDT PAP mask and supplies order with supportive documentation faxed to [facility]. [facility]10-22-2024 History of Present illness Narrative* Chuck Newman MD - 01/29/2024 11:00 AM EDT Images from the original note were not included. CHIEF COMPLAINT: Yaima Lester is a 73 y.o. male who presents to [facility] in follow-up for BESSIE The patient was unaccompanied. INTERVAL EVENTS Since last seen, Mr. Lester reports he has had his new CPAP machine since about November. He previously had a CPAP machine that was an older model that he got through the [place]. He reports that use of thenew CPAP machine has greatly improved his sleep quality and daytime sleepiness has improved. He reports that he is sleeping well and he is no longer having hallucinations overnight. He reports that he is not falling out of bed or having dream enactment. His is not here to corroborate. He reports that he has been feeling much better. He reports that the nasal pillow mask occasionally comes loose and he needs to replace it overnight. He generally is happy with his mask and likes the nasal pillows which have minimal headgear. He reports that he is able to keep his mouth closed and that he is not using a chinstrap, no problems with dry mouth. He denies any problems tolerating the pressure. He reports that it does occasionally feel too low when he starts the machine in the beginning of the night, his ramp starting at 5 and he would like tostart a 7. He reports that he is no longer napping. He denies any sleepiness with driving. He saw a neuro psychologist in November, Gaurav Iqbal, PhD 11/08/23, with the following conclusion from neuropsychiatric testing FINDINGS AND RECOMMENDATIONS: CONCLUSIONS: 1. Estimated average pre-morbid intellectual functioning. 2. Preserved visual acuity without signs of visual field cut or neglect. 3. Preserved bilateral gross motor function. 4. Minimal depression and anxiety. OPINION: Overall, findings argue against a neurodegenerative process. In fact, I am not convinced this reflects any consistent pattern of cognitive impairment. Rather, presentation seems mostly related to a distractibility issue. This is likely due to combination of BESSIE and variable depression. [place] Sleepiness Scale: Sitting and Reading: Slight Chance Watching TV: Slight Chance Sitting inactive in a public place (theater, meeting): Never As a passenger in a car for an hour without a break: Never Lying down in the afternoon to rest: Never Sitting and talking to someone: Never Sitting quietly after lunch (without alcohol): Never In a car, while stopped for a few minutes in traffic: Never Total: 2 I personally reviewed this data PAST MEDICAL HISTORY: Patient Active Problem List Diagnosis Hyperlipidemia Sleep apnea Depression Benign essential hypertension Past Medical History: Diagnosis Date Dental disease dentures Depression Hyperlipidemia Sleep apnea cpap Past Surgical History: Procedure Laterality Date COLONOSCOPY COLONOSCOPY N/A 08/30/2020 Performed by Geoff Raphael DO at [facility] EXPRESS ALLERGIES: Allergies Allergen Reactions Atorvastatin Simvastatin MEDICATIONS: Current Outpatient Medications on File Prior to Visit Medication Sig Dispense Refill citalopram (CeleXA) 40 mg tablet Take 1 tablet (40 mg total) by mouth in the morning. donepezil (ARICEPT) 10 mg tablet Take 1 tablet (10 mg total) by mouth nightly. garlic 100 mg tablet Take by mouth. memantine (NAMENDA) 5 mg tablet Take 1 tablet (5 mg total) by mouth in the morning and 1 tablet (5 mg total) before bedtime. multivitamin (MULTI-DAY ORAL) Take by mouth. nutritional supplement/fiber ([id number] ORAL) Take by mouth. rosuvastatin (CRESTOR) 5 mg tablet Take 1 tablet (5 mg total) by mouth in the morning. No current facility-administered medications on file prior to visit. PHYSICAL EXAMINATION: BP 129/73 Pulse 68 Ht 172.7 cm (5' 8 ) Wt 111.7 kg (246 lb 4.8 oz) SpO2 95% BMI 37.45 kg/m General appearance: no acute distress. Eyes: no conjunctival erythema, no scleral icterus. Ears, Nose, Mouth and Throat: external ears unremarkable, external nose and mouth unremarkable Neck: trachea position midline. Respiratory: normal work of breathing Skin: No rash/ lesions/ulcers/ induration/subcutaneous nodules in visible regions. Neurologic: face symmetric at rest and activation, no dysarthria, no tremor or abnormal movements Mental Status: Cognitive: Alert and oriented. Insight good. Judgment good. DATA: I personally reviewed the following: Sleep Study Results: Home sleep apnea test on 2023-07-04 (CORNELIUS (3%)=11.9 events/hour; CORNELIUS (4%)=5.1 events/hour; Lucas SpO2=88.0%; Dyfmmb=243.0 lbs; BMI=38.2 kg/m2) DIAGNOSIS: ? Obstructive Sleep Apnea (G47.33) COMMENTS: This home sleep apnea test demonstrates at least mild obstructive sleep apnea (BESSIE). Of note, the study was primarily recorded in off-supine positions. Home sleep testing may underestimate BESSIE severity due to lack of EEG monitoring. Treatment with CPAP should be considered on the basis of the patient's symptoms and medical history; clinical correlation is needed. Other possible treatment for mild BESSIE include weight loss or possibly oral appliance. IMPRESSION/RECOMMENDATIONS: 1. BESSIE (obstructive sleep apnea) 2. Benign essential hypertension 3. Class 2 severe obesity due to excess calories with serious comorbidity and body mass index (BMI)of 37.0 to 37.9 in adult ([facility]) Yaima Lester is a 73 y.o. male with medical problems including as above, presenting in followup for mild obstructive sleep apnea CORNELIUS 11.9 SpO2 min 88% treated with auto CPAP 10-20 cm water with good adherence and benefit from use. He will continue to use his CPAP machine nightly. I did give him a sample of Terry 2 nasal pillow to try. Does have high leak. His dream enactment in hallucinations have resolved with treatment of his BESSIE. This suggests pseudo REM sleep behavior disorder. If symptoms return I would recommend a CPAP titration with parasomnia montage. Additionally he had neuropsych testing which the results argued against dementia and the psychologist felt that his memory diffic ulty may have been due to depression and untreated BSESIE Order placed to change ramp start to 7 cm of water, leave other settings the same I will see him back in 1 year, sooner if needed EDUCATION: Health risks associated with untreated BESSIE were discussed (cardiopulmonary, cerebrovascular, and anesthesia/sedative-related). Risks associated with excessive daytime sleepiness, particularly while driving/operating machinery were discussed. The patient was instructed to avoid such activities if feeling sleepy, and to stop the activity if sleepiness occurs (tail puller at the next safe opportunity if driving). Weight loss recommended. Discussed that BESSIE can worsen with weight gain and improve and some cases resolve with weight loss, as well as weight loss improving cardio-metabolic outcomes. Above plan as discussed with the patient who acknowledged understanding and agreement. CHUCK NEWMAN MD [facility] [address] [place] [id number] * KRYSTAL Barragan - 01/29/2024 11:00 AM EDT Images from the original note were not included. documented in this encounterPrem[facility]10-22-2024 Instructions* Patient Instructions* Chuck Newman MD - 01/29/2024 11:00 AM EDT [place] II nasal pillow to try and see if you like it Changing ramp pressure to 7 cm of water Continue CPAP nightly documented in this encounterPremier Health [facility]09-24-2024 History of Present illness Narrative* Carlos Baugh MD - 01/01/2024 10:30 AM EDT Images from the original note were not included. Subjective Patient ID: Yaima Lester is a 73 y.o. male who presents for Hoarseness (Dysphonia for about 1 yr) Pt reports for approx 9 months he has had progressive weakness in his voice as the day progresses. Pt denies any other progressive weakness throughout the day, but he does not exercise. No throat pain. No otalgia. No dysphagia. Review of Systems All other systems reviewed and are negative. Family History Problem Relation Name Age of Onset Parkinsonism Mother Prostate cancer Father Alzheimer's disease Father Parkinsonism Father Active Ambulatory Problems Diagnosis Date Noted Benign essential hypertension ([facility]) 05/24/2018 Depression ([facility]) 09/12/2022 Diverticulosis large intestine w/o perforation or abscess w/bleeding 09/12/2022 Hypercholesteremia ([facility]) 09/12/2022 Hyperlipidemia ([facility]) 05/24/2017 Obesity (BMI 30-39.9) 09/12/2022 Obstructive sleep apnea 05/24/2017 Recurrent major depressive disorder, in full remission ([facility]) 09/12/2022 Obesity, morbid ([facility]) 09/12/2022 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 No pertinent surgical history. Allergies Allergen Reactions Atorvastatin Current Outpatient Medications on File Prior to Visit Medication Sig Dispense Refill citalopram (CeleXA) 40 MG tablet TAKE 1 TABLET(40 MG) BY MOUTH IN THE MORNING 90 tablet 1 donepezil (Aricept) 10 MG tablet TAKE 1 TABLET(10 MG) BY MOUTH AT BEDTIME 90 tablet 1 GARLIC PO Take 100 mg by mouth in the morning. ibuprofen 600 MG tablet TAKE 1 TABLET BY MOUTH EVERY 6 HOURS FOR PAIN melatonin 5 MG tablet Take 10 mg by mouth at bedtime Multiple Vitamin (multivitamin) capsule Take 1 capsule by mouth Daily rosuvastatin (Crestor) 10 MG tablet TAKE 1 TABLET(10 MG) BY MOUTH IN THE MORNING 90 tablet 1 [DISCONTINUED] citalopram (CeleXA) 40 MG tablet TAKE 1 TABLET(40 MG) BY MOUTH IN THE MORNING 90 tablet 1 [DISCONTINUED] donepezil (Aricept) 10 MG tablet TAKE 1 TABLET(10 MG) BY MOUTH AT BEDTIME 90 tablet 1 [DISCONTINUED] rosuvastatin (Crestor) 10 MG tablet TAKE 1 TABLET(10 MG) BY MOUTH IN THE MORNING 90 tablet 1 No current facility-administered medications on file prior to visit. Objective Last Recorded Vitals Vitals: 01/01/24 1024 BP: 126/87 ENT Physical Exam Constitutional Appearance: patient appears well-developed and well-nourished, Head and Face Appearance: head appears normal and face appears atraumatic; Ear Ear comments: Edgardo ears normal Nose External Nose: nares patent bilaterally; external nose normal; Internal Nose: nasal mucosa normal; Oral Cavity/Oropharynx Lips: normal; Teeth: normal; Gums: gingiva normal; Tongue: normal; Oral mucosa: normal; Hard palate: normal; Neck Neck: neck normal; neck palpation normal; Thyroid: thyroid normal; Respiratory Inspection: breathing unlabored; normal breathing rate; Auscultation: breath sounds are clear; Cardiovascular Inspection: extremities are warm and well perfused; no peripheral edema present; Auscultation: regular rate and rhythm; Patient ID: Yaima Lester is a 73 y.o. male. Procedures A diagnostic flexible fiberoptic laryngoscopy was performed. The flexible fiberoptic laryngoscope was placed into the nose and advanced to the level of the tip of the epiglottis. Examination of the larynx including both surfaces of the epiglottis false and true vocal folds, arytenoids and surrounding mucosal surfaces show no evidence of lesion, ulceration or mass. Normal bilateral true vocal foldmotion is present. Bilateral piriform sinuses and base of tongue appear without lesion. Pt's FVC making contact before his TVC. 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 I recommend speech therapy, but pt is reticent. There is also a remote possibility that pt has myasthenia gravis as he is having progressive weakness of his voice as the day. If pt does not want to get speech tx, I recommend referral to neurology to R/O MG. If he gets speech tx and his dysphonia resolves, no neuro eval needed. documented in this encounterCedar County Memorial [id number] History of Present illness Narrative* Ct Currie MA - 12/20/2023 2:30 PM EDT Images from the original note were not included. Yaima Lester is a 73 y.o. male presents with chief complaint of No chief complaint on file. HPI: Patient is here to follow up from neuro appointment for dementia, patients said that nothing has changed that he is not getting worse nor better. SUBJECTIVE: MEDICATIONS: ALLERGIES Current Outpatient Medications Medication Instructions citalopram (CeleXA) 40 MG tablet TAKE 1 TABLET(40 MG) BY MOUTH IN THE MORNING donepezil (Aricept) 10 MG tablet TAKE 1 TABLET(10 MG) BY MOUTH AT BEDTIME GARLIC PO 100 mg, Oral, Daily ibuprofen 600 MG tablet TAKE 1 TABLET BY MOUTH EVERY 6 HOURS FOR PAIN melatonin 10 mg, Oral, Nightly memantine (NAMENDA) 10 mg, Oral, 2 times daily Multiple Vitamin (multivitamin) capsule 1 capsule, Oral, Daily rosuvastatin (Crestor) 10 MG tablet TAKE 1 TABLET(10 MG) BY MOUTH IN THE MORNING Allergies Allergen Reactions Atorvastatin PAST MEDICAL HISTORY: SOCIAL HISTORY SURGICAL HISTORY: Past Medical History: Diagnosis Date Anxiety Depression ([facility]) Hyperlipidemia ([facility]) Social History Tobacco Use Smoking status: Never Smokeless tobacco: Never Substance Use Topics Alcohol use: Not Currently Comment: Caffine: 2 cups daily Drug use: Never History reviewed. No pertinent surgical history. REVIEW OF SYMPTOMS: Review of Systems All other systems reviewed and are negative. OBJECTIVE: Vitals: 12/20/23 1440 BP: 118/74 Pulse: 66 SpO2: 97% Physical Exam ASSESSMENT AND PLAN: Assessment/Plan No follow-ups on file. * Kay Saleem MD - 12/20/2023 2:30 PM EDT Images from the original note were not included. Yaima Lester is a 73 y.o. male presents with chief complaint of No chief complaint on file. HPI: HPI History of Present Illness The patient presents for evaluation of multiple medical concerns. He is accompanied by an adult female. He has been using a CPAP machine for the past 3 to 4 weeks, which has significantly improved his sleep quality. He no longer experiences frequent awakenings or hallucinations and has not fallen out of bed since starting the treatment. He has lost 2 to 3 pounds since starting the CPAP treatment. He e xperiences hoarseness when talking on the phone, which he attributes to the Namenda. He also has a runny nose every morning, which he believes is due to the moisture from the CPAP machine. He feels better in the mornings and was able to mow the yard last week. His next appointment with Dr. Newman is scheduled for 01/29/2024. He has discontinued Namenda due to side effects such as dizziness, weakness, and difficulty walking. He continues to take donepezil, which was prescribed by the [facility]. If he discontinues this medication, he experiences significant changes in his behavior. His evening confusion persists, but he does not nap during the day. He used to attend the gym every morning and wishes to resume this routine. He has an upcoming appointment with an title clerk at the [facility]. It has been over 10 years since his last hearing test. He has noticed a significant decline in his hearing when he does not wear his hearing aids. SUBJECTIVE: MEDICATIONS: Current Outpatient Medications Medication Instructions citalopram (CeleXA) 40 MG tablet TAKE 1 TABLET(40 MG) BY MOUTH IN THE MORNING donepezil (Aricept) 10 MG tablet TAKE 1 TABLET(10 MG) BY MOUTH AT BEDTIME GARLIC PO 100 mg, Oral, Daily ibuprofen 600 MG tablet TAKE 1 TABLET BY MOUTH EVERY 6 HOURS FOR PAIN melatonin 10 mg, Oral, Nightly memantine (NAMENDA) 10 mg, Oral, 2 times daily Multiple Vitamin (multivitamin) capsule 1 capsule, Oral, Daily rosuvastatin (Crestor) 10 MG tablet TAKE 1 TABLET(10 MG) BY MOUTH IN THE MORNING I have reviewed and reconciled the history and medication list with the patient today. REVIEW OF SYMPTOMS: Review of Systems OBJECTIVE: Visit Vitals BP 118/74 Pulse 66 Ht 5' 9 Wt 247 lb 6.4 oz SpO2 97% BMI 36.53 kg/m Smoking Status Never BSA 2.34 m Physical Exam Vitals and nursing note reviewed. Constitutional: Appearance: Normal appearance. HENT: Head: Normocephalic and atraumatic. Right Ear: Tympanic membrane normal. Left Ear: Tympanic membrane normal. Nose: Nose normal. Mouth/Throat: Mouth: Mucous membranes are moist. Pharynx: Oropharynx is clear. Cardiovascular: Rate and Rhythm: Normal rate and regular rhythm. Pulses: Normal pulses. Heart sounds: Normal heart sounds. Pulmonary: Effort: Pulmonary effort is normal. Breath sounds: Normal breath sounds. Musculoskeletal: Cervical back: Normal range of motion and neck supple. Neurological: General: No focal deficit present. Mental Status: He is alert. Psychiatric: Mood and Affect: Mood normal. ASSESSMENT AND PLAN: Assessment & Plan 1. Sleep Apnea. Dr. Johnson's findings suggest that symptoms are primarily due to distractibility, likely a combination of sleep apnea and intermittent depression. He has been using the CPAP machine consistently for about a month and reports significant improvement in sleep quality, reduced hallucinations, and no falls from bed. Continued use of the CPAP machine is advised. If symptoms persist, further evaluation may be necessary. 2. Depression. Variable depression is suspected as a contributing factor to his symptoms. He is currently taking donepezil, which [facility] Due to Dr Heaton's findings, a reduction in the donepezil dosage to 5 mg was recommended to see if there is any improvement. He is advised to cut the donepezil tablets in half and take 5 mg at night over the next few weeks. 3. Hoarseness. He reports persistent hoarseness and voice fatigue, which did not improve after stopping Namenda. Areferral to an ENT specialist, Dr. Vizcarra, was made for further evaluation of the vocal cords and potential issues with the vocal cords. Follow-up The patient will follow up in a couple of months. Assessment/Plan Problem List Items Addressed This Visit [facility] loss [facility]. Other Visit Diagnoses Memory loss - Primary Reviewed Dr Heaton's consult. Will try to wean medications. BESSIE (obstructive sleep apnea) Using and benefitting from CPAP. Dysphonia Will ask for ENT evaluation. documented in this encounterCedar County Memorial [id number] History of Present illness Narrative* Mary Saldana CCC-A - 12/12/2023 10:30 AM EDT History: Pt was referred to Audiology because of hearing loss. Pt has long history of hearing loss and has 4year old Phonak VICENTE aids [facility]. Pt is interested in replacing his aids and has insurance that provides a hearing aid benefit. Explained to pt that in my experience, Veterans receive top of the line hearing aids from the [facility]. With his [place] insuance he would have a few thousand dollar copay for top of the line aids. He couldget advanced hearing aids (step below top of the line) for $250 co-pay. If pt has the patience to work with the [facility] and to travel, he will be able to get a superior aid at no cost. Pt decided to return to [facility]. documented in this encounterCedar County Memorial [id number] Miscellaneous Notes* Telephone Encounter - KRYSTAL Barragan - 08/10/2023 1:51 PM EDT FAXED PAP SUPPLY ALONG WITH SUPPORTIVE DOCUMENTATION TO [facility]. documented in this encounterPremier [facility]05-03-2024 Telephone encounter Note* Telephone Encounter - KRYSTAL Barragan - 08/10/2023 1:51 PM EDT FAXED PAP SUPPLY ALONG WITH SUPPORTIVE DOCUMENTATION TO [facility]RIANA. [facility]04-30-2024 History of Present illness Narrative* KRYSTAL Barragan - 08/07/2023 9:30 AM EDT Images from the original note were not included. * Chuck Newman MD - 08/07/2023 9:30 AM EDT Images from the original note were not included. CHIEF COMPLAINT: Yaima Lester is a 73 y.o. male who presents 08/07/2023 referred by Kay Saleem MD to [facility] for evaluation of BESSIE, with the chief complaint of sleep apnea. The patient was accompanied by . HISTORY OF PRESENT ILLNESS: Mr. Lester reports he was diagnosed with BESSIE years ago. He is a CPAP but it is old and been in a closet over a year. He has not been using it. He has been having issues with talking in his sleep and screaming and falling out of bed. His notes that he is also seeing things in the room, spiders and snakes. He has lost his sense of smell over the past couple years. His notes that he does fall out of bed so that they have lowered the bed to the ground. Rarely rolls out now. His notesa tremor in his right hand. Although she states she thought it was related to an ulnar neuropathy. He has been diagnosed with dementia by his primary care physician and is on Namenda. They report that he has not seen a neurologist. Reports that his mother and father were diagnosed with parkinsonism He is diagnosed with depression and is on celexa - he finds it helpful He is snoring and there are breathing pauses when he is sleeping. He has nocturia, nasal congestion, He has found that a nasal pillow works best to keep his mask on. He does not tolerate a fullface mask as he is claustrophobic. He was not able to get supplies through the [facility] any longer. They said he did not qualify. He reports an aching in his legs, but denies restlessness urge to move Sleep Habits: He goes to bed at 11:00 p.m. it takes 30 minutes to fall asleep he wakes up once for the bathroom and goes back to sleep and then he wakes up for the day at 9:00 a.m. He is taking 5 mg of melatonin at night and Tylenol p.m. Denies planned naps He denies sleepiness with driving and denies any near misses or accidents due to sleepiness. He does not drive much anymore Drug use: denies Alcohol use: 2 or less a month [place] Sleepiness Scale: Sitting and Reading: Slight Chance Watching TV: (!) Moderate Chance Sitting inactive in a public place (theater, meeting): Never As a passenger in a car for an hour without a break: Never Lying down in the afternoon to rest: (!) High Chance Sitting and talking to someone: Never Sitting quietly after lunch (without alcohol): Never In a car, while stopped for a few minutes in traffic: Never Total: 6 The following notes were reviewed: PCP Dr. Rivera 06/30/23 PAST MEDICAL HISTORY: Patient Active Problem List Diagnosis Hyperlipidemia Sleep apnea Depression Past Medical History: Diagnosis Date Dental disease dentures Depression Hyperlipidemia Sleep apnea cpap Past Surgical History: Procedure Laterality Date COLONOSCOPY COLONOSCOPY N/A 08/30/2020 Performed by Geoff Raphael DO at [facility] ALLERGIES: Allergies Allergen Reactions Atorvastatin Simvastatin MEDICATIONS: Current Outpatient Medications on File Prior to Visit Medication Sig Dispense Refill citalopram (CeleXA) 40 mg tablet Take 1 tablet (40 mg total) by mouth in the morning. donepezil (ARICEPT) 10 mg tablet Take 1 tablet (10 mg total) by mouth nightly. garlic 100 mg tablet Take by mouth. memantine (NAMENDA) 5 mg tablet Take 1 tablet (5 mg total) by mouth in the morning and 1 tablet (5 mg total) before bedtime. multivitamin (MULTI-DAY ORAL) Take by mouth. nutritional supplement/fiber (AIKUQV-NWHC-VEJM ORAL) Take by mouth. rosuvastatin (CRESTOR) 5 mg tablet Take 1 tablet (5 mg total) by mouth in the morning. No current facility-administered medications on file prior to visit. FAMILY HISTORY: Family History Problem Relation Age of Onset Parkinsonism Mother Alzheimer's disease Father Cancer Father SOCIAL HISTORY: Social History Socioeconomic History Marital status: Tobacco Use Smoking status: Never Smokeless tobacco: Never Substance and Sexual Activity Alcohol use: Yes Comment: sometimes Drug use: No Sexual activity: Defer Social Determinants of Health Food Insecurity: No Food Insecurity (08/07/2023) Hunger Screening Food Insecurity - Worry: Never True Food Insecurity - Inability: Never True REVIEW OF SYSTEMS: 10 of 14 systems reviewed. Positives that are not being addressed by the patient s other physicians: None. PHYSICAL EXAMINATION: BP 134/67 Pulse 62 Ht 172.7 cm (5' 8 ) Wt 114.4 kg (252 lb 1.6 oz) SpO2 96% BMI 38.33 kg/m General appearance: no acute distress. Body habitus obese Eyes: no conjunctival erythema, no scleral icterus. Ears, Nose, Mouth and Throat: external ears unremarkable, external nose unremarkable; tongue large without scalloping, Mallampati class 4 Respiratory: respiratory effort normal, CTAB, +rhonchi bilaterally Cardiovascular: RRR, no m/r/g Skin: No rash/ lesions/ulcers/ induration/subcutaneous nodules in visible regions. Neurologic: face symmetric at rest and activation, no dysarthria, tongue protrudes midline and palate elevates symmetrically, slight high-frequency tremor in the right hand at rest, normal tone in the upper arms Mental Status: Cognitive: Alert and oriented. Insight good. Judgment good. DATA: PHYS The following were reviewed by me: Sleep Study Results: Home sleep apnea test on 2023-07-04 (CORNELIUS (3%)=11.9 events/hour; CORNELIUS (4%)=5.1 events/hour; Lcuas SpO2=88.0%; Vzqqdt=624.0 lbs; BMI=38.2 kg/m2) DIAGNOSIS: ? Obstructive Sleep Apnea (G47.33) COMMENTS: This home sleep apnea test demonstrates at least mild obstructive sleep apnea (BESSIE). Of note, the study was primarily recorded in off-supine positions. Home sleep testing may underestimate BESSIE severity due to lack of EEG monitoring. Treatment with CPAP should be considered on the basis of the patient's symptoms and medical history; clinical correlation is needed. Other possible treatment for mild BESSIE include weight loss or possibly oral appliance. IMPRESSION/RECOMMENDATIONS: 1. BESSIE (obstructive sleep apnea) 2. Other depression 3. Primary hypertension Yaima Lester is a 73 y.o. male with medical problems including as above, presenting with known BESSIE CORNELIUS (3%)=11.9 events/hour; CORNELIUS (4%)=5.1 events/hour; Lucas SpO2=88.0%, not using CPAP. He has symptoms suggestive of REM sleep behavior disorder and was diagnosed with dementia. We discussed theassociation of REM sleep behavior disorder and Lewy body dementia, he also has hallucinations and loss of sense of smell which may be suggestive of Lewy body disease over Alzheimer's. We discussed that untreated obstructive sleep apnea can precipitate dream enactment. I recommended that he resume CPAP machine at auto 10-20 cm of water. I have ordered a replacement machine and supplies. He declines in-lab sleep studies at this time which could definitively confirm RBD. We discussed bedroom safety, his mattress is already on the floor in the bedroom and the environment around the bed is safe from dangerous objects, his sleeps separately He can increase melatonin by 2.5 mg a week to a maximum 15 mg for dream enactment, advised to monitor for sedation I recommended that they discuss a referral to a neurologist with her primary care doctor I would like to see him back for CPAP compliance 31-90 days after getting his new machine EDUCATION: Pathophysiology of BESSIE was explained. Health risks associated with untreated BESSIE were discussed (cardiopulmonary, cerebrovascular, and anesthesia/sedative-related). Risks associated with excessive daytime sleepiness, particularly while driving/operating machinery were discussed. The patient was instructed to avoid such activities if feeling sleepy, and to stop the activity if sleepiness occurs (tail puller at the next safe opportunity if driving). BESSIE treatment options were discussed. CPAP is the most predictably effective treatment. If indicated and prescribed, CPAP must be used every night, all night for full benefits. It may take several weeks until fully accustomed to using the treatment, and before benefits (improved sleep quality and daytime altertness) are noticeable. Potential problems with CPAP were reviewed. Interim measures to reduce obstructive sleep apnea severity were recommended (avoidance of the supine position and elevation of the upper body and during sleep). Weight loss recommended. Discussed that BESSIE can worsen with weight gain and improve and some cases resolve with weight loss, as well as weight loss improving cardio-metabolic outcomes. Above plan as discussed with the patient who acknowledged understanding and agreement. CHUCK NEWMAN MD [facility] [address] [facility] [id number] documented in this encounterCleveland ClinicFoxteq Holdings Duane [facility]. Waters [id number] Instructions* Patient Instructions* Chuck Newman MD - 08/07/2023 9:30 AM EDT Melatonin can increase by 2.5 mg every 1-2 weeks, maximum would be 15 mg Goal to reduce sleep behaviors REQUIREMENTS FOR PAP (CPAP/BPAP/ASV) COMPLIANCE All insurances vary but these are the most common compliance requirements. Please check with your insurer/DME company for your specific compliance requirements: 1) Minimum PAP use is defined as follows (all apply): A. At least 4 hours per day/night (24 hour period) B. At least 21 nights (=70% usage) during a 30 day period C. Minimum usage must be demonstrated within the first 90 days (starts the day you obtain your PAP machine from your supplier) 2) You must have a follow up visit at the Sleep Clinic: A. Follow up visit appointment must be at least 31 and no more than 90 days after receiving your PAP machine. B. It is your responsibility to reschedule this appointment if there is a delay in receiving your PAP machine that would not allow enough time to demonstrate sufficient use. If the above requirements are not met: 1) You may have to re-qualify to keep your PAP machine: a repeat sleep study may be required. 2) You may have to return your PAP machine to the supplier or receive a bill from the supplier. 3) These consequences will be determined by your insurance company. Thank you for visiting [facility] office. The process of completing a sleep study hasmany steps. We have detailed these steps below to help keep you informed of what to expect. The scheduling, prior authorization, and registration process: Please call option #1 to schedule your sleep study. Your sleep medicine specialist places an electronic order which is sent to [facility] sleep lab. This order is then reviewed by the lab staff and a request for approval is sent to your insurance company. If you would like to know the estimated cost of your study, you can call [phone] for general pricing information (note that you will need the following procedure codes allow them to estimate thecost: Polysomnogram (PSG), in lab diagnostic study without CPAP = 32091 PAP titration, in lab with CPAP for treatment = 80804 Home sleep study = 16401 Every study request is reviewed in our sleep prior authorization department. Some sleep studies require prior authorization and some do not (only require that the provider document the need for the study). Some sleep study orders may need to be changed based on insurance coverage. (ie in lab to home study). Please confirm with your insurance that all [facility] sleep labs are in network with your insurance. If you change your insurance after the sleep study is ordered, please call the sleep lab back to update our scheduling staff ( option #1). You should receive a call prior to your sleep study to pre-register. They will be able to provide sleep study cost estimates as well. The sleep lab will also give detailed instructions on where to check in for the study. Preparing for your sleep study: Avoid napping and afternoon caffeine use prior to the sleep study. Very specific instructions on what to bring will be provided by the sleep lab (pajamas, toiletries,medications, etc). Prior to the sleep study you will be asked to choose a medical equipment supplier (DME).The DME will be providing the pap machine if ordered by the provider. What happens after my sleep study? Within 24-48 hours the data from your sleep study is sent to a armorer technician to be reviewed and scored. The report from the armorer technician is then sent to the sleep medicine physician and within 7-10 days the study will be formally interpreted. Once the study is completed, there will be contact from our office (through mychart, phone, or a letter) about next steps (ie treatment for sleep apnea, office appointment, cpap machine orders). If a cpap machine has been ordered and you do not hear from the equipment company within 30 days ofyour study, please call our office [phone]. FYI: Some insurance companies have strict guidelines regarding the timeline for this process. If sleep studies are not completed within 6-12 months of the office visit insurance may require another office visit. Also if cpap set up is not done within a year of the initial sleep study insurance may require another sleep study. Thank you, [facility] Department documented in this encounterPremier Health [facility] Center03-13-2024 Miscellaneous Notes* Telephone Encounter - Swapna Bell Randy - 06/20/2023 3:34 PM EDT Images from the original note were not included. From sleep lab encounter : Ioana Melchor MD routed conversation to You; [facility] Sleep Front Desk3 hours ago (12:24 PM) Ioana Melchor MD3 hours ago (12:23 PM) He can have a home test, but this doesn't make much clinical sense to me. It seems he is noncompliant with CPAP and having concern for RBD for which in lab testing would be recommended. A repeat diagnostic could be helpful if amenable to exploring alternative therapies if CPAP intolerant, otherwisemay just benefit from retitration. Could do a split night for both types of information. Will see if office RPSGT can reach out to Drs office to clarify need. Note Rose Marie Melchor MD4 hours ago (10:55 AM) AG DIRECT REFERRAL; NEEDS APPROVAL * Telephone Encounter - Swapna Padilla - 06/20/2023 3:34 PM EDT PPG to read/ follow, called to schedule [facility] appt but also to see if pt would be agreeable to in lab study prior to calling office to try to get new order ([facility] notes state the only type of sleep study pt is willing to do is a HST) Called primary number and someone hung up, called back and phone picked up and states wrong number and hangs up. Called 's number and LVM (listed for PHI) documented in this encounterPorter Medical CenterGigoptix03-13-2024 Telephone encounter Note* Telephone Encounter - Swapna Padilla - 06/20/2023 3:34 PM EDT Images from the original note were not included. From sleep lab encounter : Ioana Melchor MD routed conversation to You; [facility] Sleep Front Desk3 hours ago (12:24 PM) Ioana Melchor MD3 hours ago (12:23 PM) He can have a home test, but this doesn't make much clinical sense to me. It seems he is noncompliant with CPAP and having concern for RBD for which in lab testing would be recommended. A repeat diagnostic could be helpful if amenable to exploring alternative therapies if CPAP intolerant, otherwisemay just benefit from retitration. Could do a split night for both types of information. Will see if office RPSGT can reach out to Drs office to clarify need. Note Rose Marie Melchor MD4 hours ago (10:55 AM) AG DIRECT REFERRAL; NEEDS APPROVAL [id number] Telephone encounter Note* Telephone Encounter - Swapna Padilla - 06/20/2023 3:34 PM EDT PPG to read/ follow, called to schedule [employer] appt but also to see if pt would be agreeable to in lab study prior to calling office to try to get new order ([facility] notes state the only type of sleep study pt is willing to do is a HST) Called primary number and someone hung up, called back and phone picked up and states wrong number and hangs up. Called 's number and LVM (listed for PHI) [facility] Miscellaneous Notes* Telephone Encounter - Shari Sanchez - 06/13/2023 10:51 AM EST order received 06/12 Called PT to schedule sleep study, VM is full sent a letter. HST order & 06/01 [facility] notes in [employer] documented in this encounterCleveland ClinicI Gotchu [id number] Telephone encounter Note* Telephone Encounter - Shari Sanchez - 06/13/2023 10:51 AM EST order received 06/12 Called PT to schedule sleep study, VM is full sent a letter. HST order & 06/01 [employer] notes in [employer] [facility] SystemEvaluation note* Diagnosis Obstructive sleep apnea- Primary Obstructive sleep apnea (adult) (pediatric) Benign essential hypertension (CMS/HCC) Essential hypertension, benign Recurrent major depressive disorder, in full remission (CMS/HCC) Hypercholesteremia (CMS/HCC) Pure hypercholesterolemia Diverticulosis large intestine w/o perforation or abscess w/bleeding Screening PSA (prostate specific antigen) Special screening for malignant neoplasm of prostate Screening for hyperlipidemia Screening for lipoid disorders Routine general medical examination at health care facility Routine general medical examination at a health care facility Obesity, morbid (CMS/HCC) Morbid obesity Obstructive sleep apnea- Primary Obstructive sleep apnea (adult) (pediatric) Morbid (severe) obesity due to excess calories (E66.01) Mixed hyperlipidemia (E78.2) Mixed hyperlipidemia Body mass index [BMI] 36.0-36.9, adult (Z68.36) 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, psychotic disturbance, mood disturbance, or anxiety (CMS/HCC) Recurrent major depressive disorder, in full remission (CMS/HCC) Wellness examination- Primary Screening PSA (prostate specific antigen) Special screening for malignant neoplasm of prostate Memory loss Benign essential hypertension (CMS/HCC) Essential hypertension, benign Obesity, morbid (CMS/HCC) Morbid obesity Obesity (BMI 30-39.9) Mixed hyperlipidemia (CMS/HCC) Mixed hyperlipidemia Recurrent major depressive disorder, in full remission (CMS/HCC) Obstructive sleep apnea Obstructive sleep apnea (adult) (pediatric) Muscle twitching Abnormal involuntary movements Encounter for immunization Bilateral hearing loss, unspecified hearing loss type 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, psychotic disturbance, mood disturbance, or anxiety (CMS/HCC) Altered mental status, unspecified altered mental status type- Primary Obstructive sleep apnea Obstructive sleep apnea (adult) (pediatric) Benign essential hypertension (CMS/HCC) Essential hypertension, benign Obesity (BMI 30-39.9) Mixed hyperlipidemia (CMS/HCC) Mixed hyperlipidemia Recurrent major depressive disorder, in full remission (CMS/HCC) [facility]* Diagnosis Memory loss- Primary Bilateral hearing loss, unspecified hearing loss type BESSIE (obstructive sleep apnea) Obstructive sleep apnea (adult) (pediatric) Dysphonia documented in this encounter [facility]* Diagnosis Bilateral hearing loss, unspecified hearing loss type- Primary documented in [facility]* Diagnosis Muscle weakness- Primary Muscle weakness (generalized) Muscle tension dysphonia Other diseases of larynx documented [facility] this [facility]* Diagnosis Obstructive sleep apnea- Primary Obstructive sleep apnea (adult) (pediatric) Benign essential hypertension (CMS/HCC) Essential hypertension, benign Recurrent major depressive disorder, in full remission (CMS/HCC) Hypercholesteremia (CMS/HCC) Pure hypercholesterolemia Diverticulosis large intestine w/o perforation or abscess w/bleeding Screening PSA (prostate specific antigen) Special screening for malignant neoplasm of prostate Screening for hyperlipidemia Screening for lipoid disorders Routine general medical examination at health care facility Routine general medical examination at a health care facility Obesity, morbid (CMS/HCC) Morbid obesity Obstructive sleep apnea- Primary Obstructive sleep apnea (adult) (pediatric) Morbid (severe) obesity due to excess calories (E66.01) Mixed hyperlipidemia (E78.2) Mixed hyperlipidemia Body mass index [BMI] 36.0-36.9, adult (Z68.36) 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, psychotic disturbance, mood disturbance, or anxiety (CMS/HCC) Recurrent major depressive disorder, in full remission (CMS/HCC) Wellness examination- Primary Screening PSA (prostate specific antigen) Special screening for malignant neoplasm of prostate Memory loss Benign essential hypertension (CMS/HCC) Essential hypertension, benign Obesity, morbid (CMS/HCC) Morbid obesity Obesity (BMI 30-39.9) Mixed hyperlipidemia (CMS/HCC) Mixed hyperlipidemia Recurrent major depressive disorder, in full remission (CMS/HCC) Obstructive sleep apnea Obstructive sleep apnea (adult) (pediatric) Muscle twitching Abnormal involuntary movements Encounter for immunization Bilateral hearing loss, unspecified hearing loss type 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, psychotic disturbance, mood disturbance, or anxiety (CMS/HCC) Altered mental status, unspecified altered mental status type- Primary Obstructive sleep apnea Obstructive sleep apnea (adult) (pediatric) Benign essential hypertension (CMS/HCC) Essential hypertension, benign Obesity (BMI 30-39.9) Mixed hyperlipidemia (CMS/HCC) Mixed hyperlipidemia Recurrent major depressive disorder, in full remission (CMS/HCC) TIA (transient ischemic attack)- Primary Unspecified transient cerebral ischemia 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 Benign essential hypertension (CMS/HCC) Essential hypertension, benign Obesity, morbid (CMS/HCC) Morbid obesity Mixed hyperlipidemia (CMS/HCC) Mixed hyperlipidemia Body mass index (BMI) 36.0-36.9, adult Alzheimer's disease with early onset (CODE) (CMS/HCC) documented in this encounter [facility]* Diagnosis Obstructive sleep apnea- Primary Obstructive sleep apnea (adult) (pediatric) Benign essential hypertension (CMS/HCC) Essential hypertension, benign Recurrent major depressive disorder, in full remission (CMS/HCC) Hypercholesteremia (CMS/HCC) Pure hypercholesterolemia Diverticulosis large intestine w/o perforation or abscess w/bleeding Screening PSA (prostate specific antigen) Special screening for malignant neoplasm of prostate Screening for hyperlipidemia Screening for lipoid disorders Routine general medical examination at health care facility Routine general medical examination at a health care facility Obesity, morbid (CMS/HCC) Morbid obesity Obstructive sleep apnea- Primary Obstructive sleep apnea (adult) (pediatric) Morbid (severe) obesity due to excess calories (E66.01) Mixed hyperlipidemia (E78.2) Mixed hyperlipidemia Body mass index [BMI] 36.0-36.9, adult (Z68.36) 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, psychotic disturbance, mood disturbance, or anxiety (CMS/HCC) Recurrent major depressive disorder, in full remission (CMS/HCC) Wellness examination- Primary Screening PSA (prostate specific antigen) Special screening for malignant neoplasm of prostate Memory loss Benign essential hypertension (CMS/HCC) Essential hypertension, benign Obesity, morbid (CMS/HCC) Morbid obesity Obesity (BMI 30-39.9) Mixed hyperlipidemia (CMS/HCC) Mixed hyperlipidemia Recurrent major depressive disorder, in full remission (CMS/HCC) Obstructive sleep apnea Obstructive sleep apnea (adult) (pediatric) Muscle twitching Abnormal involuntary movements Encounter for immunization Bilateral hearing loss, unspecified hearing loss type 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, psychotic disturbance, mood disturbance, or anxiety (CMS/HCC) Altered mental status, unspecified altered mental status type- Primary Obstructive sleep apnea Obstructive sleep apnea (adult) (pediatric) Benign essential hypertension (CMS/HCC) Essential hypertension, benign Obesity (BMI 30-39.9) Mixed hyperlipidemia (CMS/HCC) Mixed hyperlipidemia Recurrent major depressive disorder, in full remission ([facility]/HCC) TIA (transient ischemic attack)- Primary Unspecified transient cerebral ischemia Hyperlipidemia, unspecified hyperlipidemia type (CMS/HCC) documented in this encounter [facility]Evaluation note* Diagnosis BESSIE (obstructive sleep apnea)- Primary Obstructive sleep apnea (adult) (pediatric) Other depression Primary hypertension Unspecified essential hypertension [facility] Diagnosis Obstructive sleep apnea Obstructive sleep apnea (adult) (pediatric) [facility]* Diagnosis BESSIE (obstructive sleep apnea)- Primary Obstructive sleep apnea (adult) (pediatric) Benign essential hypertension Essential hypertension, benign Class 2 severe obesity due to excess calories with serious comorbidity and body mass index (BMI) of37.0 to 37.9 in adult ([facility]-HCC) [facility]* Diagnosis Obstructive sleep apnea- Primary Obstructive sleep apnea (adult) (pediatric) Benign essential hypertension (CMS/HCC) Essential hypertension, benign Recurrent major depressive disorder, in full remission (CMS/HCC) Hypercholesteremia (CMS/HCC) Pure hypercholesterolemia Diverticulosis large intestine w/o perforation or abscess w/bleeding Screening PSA (prostate specific antigen) Special screening for malignant neoplasm of prostate Screening for hyperlipidemia Screening for lipoid disorders Routine general medical examination at health care facility Routine general medical examination at a health care facility Obesity, morbid (CMS/HCC) Morbid obesity Obstructive sleep apnea- Primary Obstructive sleep apnea (adult) (pediatric) Morbid (severe) obesity due to excess calories (E66.01) Mixed hyperlipidemia (E78.2) Mixed hyperlipidemia Body mass index [BMI] 36.0-36.9, adult (Z68.36) 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, psychotic disturbance, mood disturbance, or anxiety (CMS/HCC) Recurrent major depressive disorder, in full remission (CMS/HCC) Wellness examination- Primary Screening PSA (prostate specific antigen) Special screening for malignant neoplasm of prostate Memory loss Benign essential hypertension (CMS/HCC) Essential hypertension, benign Obesity, morbid (CMS/HCC) Morbid obesity Obesity (BMI 30-39.9) Mixed hyperlipidemia (CMS/HCC) Mixed hyperlipidemia Recurrent major depressive disorder, in full remission (CMS/HCC) Obstructive sleep apnea Obstructive sleep apnea (adult) (pediatric) Muscle twitching Abnormal involuntary movements Encounter for immunization Bilateral hearing loss, unspecified hearing loss type 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, psychotic disturbance, mood disturbance, or anxiety (CMS/HCC) Altered mental status, unspecified altered mental status type- Primary Obstructive sleep apnea Obstructive sleep apnea (adult) (pediatric) Benign essential hypertension (CMS/HCC) Essential hypertension, benign Obesity (BMI 30-39.9) Mixed hyperlipidemia (CMS/HCC) Mixed hyperlipidemia Recurrent major depressive disorder, in full remission (CMS/HCC) Altered mental status, unspecified altered mental status type documented in this encounter [facility]* Diagnosis Obstructive sleep apnea- Primary Obstructive sleep apnea (adult) (pediatric) Benign essential hypertension (CMS/HCC) Essential hypertension, benign Recurrent major depressive disorder, in full remission (CMS/HCC) Hypercholesteremia (CMS/HCC) Pure hypercholesterolemia Diverticulosis large intestine w/o perforation or abscess w/bleeding Screening PSA (prostate specific antigen) Special screening for malignant neoplasm of prostate Screening for hyperlipidemia Screening for lipoid disorders Routine general medical examination at health care facility Routine general medical examination at a health care facility Obesity, morbid (CMS/HCC) Morbid obesity Obstructive sleep apnea- Primary Obstructive sleep apnea (adult) (pediatric) Morbid (severe) obesity due to excess calories (E66.01) Mixed hyperlipidemia (E78.2) Mixed hyperlipidemia Body mass index [BMI] 36.0-36.9, adult (Z68.36) 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, psychotic disturbance, mood disturbance, or anxiety (CMS/HCC) Recurrent major depressive disorder, in full remission (CMS/HCC) Wellness examination- Primary Screening PSA (prostate specific antigen) Special screening for malignant neoplasm of prostate Memory loss Benign essential hypertension (CMS/HCC) Essential hypertension, benign Obesity, morbid (CMS/HCC) Morbid obesity Obesity (BMI 30-39.9) Mixed hyperlipidemia (CMS/HCC) Mixed hyperlipidemia Recurrent major depressive disorder, in full remission (CMS/HCC) Obstructive sleep apnea Obstructive sleep apnea (adult) (pediatric) Muscle twitching Abnormal involuntary movements Encounter for immunization Bilateral hearing loss, unspecified hearing loss type 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, psychotic disturbance, mood disturbance, or anxiety (CMS/HCC) Altered mental status, unspecified altered mental status type- Primary Obstructive sleep apnea Obstructive sleep apnea (adult) (pediatric) Benign essential hypertension (CMS/HCC) Essential hypertension, benign Obesity (BMI 30-39.9) Mixed hyperlipidemia (CMS/HCC) Mixed hyperlipidemia Recurrent major depressive disorder, in full remission (CMS/HCC) TIA (transient ischemic attack)- Primary Unspecified transient cerebral ischemia Hyperlipidemia, unspecified hyperlipidemia type (CMS/HCC) Diplopia documented [facility] encounter [facility]* Diagnosis Obstructive sleep apnea- Primary Obstructive sleep apnea (adult) (pediatric) Benign essential hypertension (CMS/HCC) Essential hypertension, benign Recurrent major depressive disorder, in full remission (CMS/HCC) Hypercholesteremia (CMS/HCC) Pure hypercholesterolemia Diverticulosis large intestine w/o perforation or abscess w/bleeding Screening PSA (prostate specific antigen) Special screening for malignant neoplasm of prostate Screening for hyperlipidemia Screening for lipoid disorders Routine general medical examination at health care facility Routine general medical examination at a health care facility Obesity, morbid (CMS/HCC) Morbid obesity Obstructive sleep apnea- Primary Obstructive sleep apnea (adult) (pediatric) Morbid (severe) obesity due to excess calories (E66.01) Mixed hyperlipidemia (E78.2) Mixed hyperlipidemia Body mass index [BMI] 36.0-36.9, adult (Z68.36) 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, psychotic disturbance, mood disturbance, or anxiety (CMS/HCC) Recurrent major depressive disorder, in full remission (CMS/HCC) Wellness examination- Primary Screening PSA (prostate specific antigen) Special screening for malignant neoplasm of prostate Memory loss Benign essential hypertension (CMS/HCC) Essential hypertension, benign Obesity, morbid (CMS/HCC) Morbid obesity Obesity (BMI 30-39.9) Mixed hyperlipidemia (CMS/HCC) Mixed hyperlipidemia Recurrent major depressive disorder, in full remission (CMS/HCC) Obstructive sleep apnea Obstructive sleep apnea (adult) (pediatric) Muscle twitching Abnormal involuntary movements Encounter for immunization Bilateral hearing loss, unspecified hearing loss type 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, psychotic disturbance, mood disturbance, or anxiety (CMS/HCC) Altered mental status, unspecified altered mental status type- Primary Obstructive sleep apnea Obstructive sleep apnea (adult) (pediatric) Benign essential hypertension (CMS/HCC) Essential hypertension, benign Obesity (BMI 30-39.9) Mixed hyperlipidemia (CMS/HCC) Mixed hyperlipidemia Recurrent major depressive disorder, in full remission (CMS/HCC) TIA (transient ischemic attack)- Primary Unspecified transient cerebral ischemia Hyperlipidemia, unspecified hyperlipidemia type (CMS/HCC) Diplopia documented [facility] encounter [facility]* Diagnosis Obstructive sleep apnea- Primary Obstructive sleep apnea (adult) (pediatric) Benign essential hypertension Essential hypertension, benign Recurrent major depressive disorder, in full remission Hypercholesteremia Pure hypercholesterolemia Diverticulosis large intestine w/o perforation or abscess w/bleeding Screening PSA (prostate specific antigen) Special screening for malignant neoplasm of prostate Screening for hyperlipidemia Screening for lipoid disorders Routine general medical examination at health care facility Routine general medical examination at a health care facility Obesity, morbid (CMS-HCC) Morbid obesity Obstructive sleep apnea- Primary Obstructive sleep apnea (adult) (pediatric) Morbid (severe) obesity due to excess calories (E66.01) Mixed hyperlipidemia (E78.2) Mixed hyperlipidemia Body mass index [BMI] 36.0-36.9, adult (Z68.36) 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, psychotic disturbance, mood disturbance, or anxiety (HCC) Recurrent major depressive disorder, in full remission Wellness examination- Primary Screening PSA (prostate specific antigen) Special screening for malignant neoplasm of prostate Memory loss Benign essential hypertension Essential hypertension, benign Obesity, morbid (CMS-HCC) Morbid obesity Obesity (BMI 30-39.9) Mixed hyperlipidemia Mixed hyperlipidemia Recurrent major depressive disorder, in full remission Obstructive sleep apnea Obstructive sleep apnea (adult) (pediatric) Muscle twitching Abnormal involuntary movements Encounter for immunization Bilateral hearing loss, unspecified hearing loss type 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, psychotic disturbance, mood disturbance, or anxiety (HCC) Altered mental status, unspecified altered mental status type- Primary Obstructive sleep apnea Obstructive sleep apnea (adult) (pediatric) Benign essential hypertension Essential hypertension, benign Obesity (BMI 30-39.9) Mixed hyperlipidemia Mixed hyperlipidemia Recurrent major depressive disorder, in full remission Encounter for annual wellness exam in Medicare patient- Primary Screening for prostate cancer Special screening for malignant neoplasm of prostate Benign essential hypertension Essential hypertension, benign Obstructive sleep apnea Obstructive sleep apnea (adult) (pediatric) Obesity, morbid ([facility]-HCC) Morbid obesity 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, psychotic disturbance, mood disturbance, or anxiety (HCC) Screening for deficiency anemia Screening for other and unspecified deficiency anemia Mixed hyperlipidemia Mixed hyperlipidemia Diplopia Muscle tension dysphonia Other diseases of larynx Obesity (BMI 30-39.9) Recurrent major depressive disorder, in full remission Hearing loss, unspecified hearing loss type, unspecified laterality Hypercholesteremia Pure hypercholesterolemia Sensorineural hearing loss, asymmetrical documented in this encounter [facility]* Diagnosis Obstructive sleep apnea- Primary Obstructive sleep apnea (adult) (pediatric) Benign essential hypertension Essential hypertension, benign Recurrent major depressive disorder, in full remission Hypercholesteremia Pure hypercholesterolemia Diverticulosis large intestine w/o perforation or abscess w/bleeding Screening PSA (prostate specific antigen) Special screening for malignant neoplasm of prostate Screening for hyperlipidemia Screening for lipoid disorders Routine general medical examination at health care facility Routine general medical examination at a health care facility Obesity, morbid ([facility]-HCC) Morbid obesity Obstructive sleep apnea- Primary Obstructive sleep apnea (adult) (pediatric) Morbid (severe) obesity due to excess calories (E66.01) Mixed hyperlipidemia (E78.2) Mixed hyperlipidemia Body mass index [BMI] 36.0-36.9, adult (Z68.36) 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, psychotic disturbance, mood disturbance, or anxiety (HCC) Recurrent major depressive disorder, in full remission Wellness examination- Primary Screening PSA (prostate specific antigen) Special screening for malignant neoplasm of prostate Memory loss Benign essential hypertension Essential hypertension, benign Obesity, morbid ([facility]-HCC) Morbid obesity Obesity (BMI 30-39.9) Mixed hyperlipidemia Mixed hyperlipidemia Recurrent major depressive disorder, in full remission Obstructive sleep apnea Obstructive sleep apnea (adult) (pediatric) Muscle twitching Abnormal involuntary movements Encounter for immunization Bilateral hearing loss, unspecified hearing loss type 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, psychotic disturbance, mood disturbance, or anxiety (HCC) Altered mental status, unspecified altered mental status type- Primary Obstructive sleep apnea Obstructive sleep apnea (adult) (pediatric) Benign essential hypertension Essential hypertension, benign Obesity (BMI 30-39.9) Mixed hyperlipidemia Mixed hyperlipidemia Recurrent major depressive disorder, in full remission Altered mental status, unspecified altered mental status type documented [facility] this encounter [facility]* Diagnosis Onset Date Resolution Status Admit Date Diplopia acuteSept2024 11:46amTIA (transient ischemic attack)acuteSept2024 11:46am [facility] Work Phone: InstructionsNot on filedocumented in this encounter [facility] System[facility]ructionsNot on filedocumented in this encounter [facility] SystemInstructionsNot on filedocumented in this encounter [facility] SystemReason for referral (narrative)* Consultation (Routine) - Pending ReviewSpecialtyDiagnoses / ProceduresReferred By ContactReferred To ContactOtolaryngology Diagnoses Dysphonia Procedures NM OFFICE/OUTPATIENT [facility]ARE [facility] AT [facility] 60 MINUTES Kay Saleem MD [address] [place] [address] Carlos Baugh MD [address] [place] [phone] Referral IDStatusReasonStart DateExpiration DateVisits RequestedVisits [id number] Review Specialty Services Required / [facility] HealthcareReason for referral (narrative)No reason for referral information availableC[facility] Clinic [facility] Work Phone: Summary Purpose Family History No Family History Records FoundNo Family History Records FoundNo Family History Records FoundNo Family History Records FoundNo Family History Records FoundNo Family History Records Found Advance Directives Advance Directive Response Recorded Date/ Time Advance Directives No November 14 025 12:33pm Chief Complaint and Reason for Visit Reason for Visit Admit Date Diplopia December 17, 2024 11:46am TIA (transient ischemic attack) Septembe r 2024 11:46am Additional Source Comments (unrecognized sect ion and content) No Status Records FoundNo Status Records FoundNo Status Records FoundNo Status Records FoundNo Status Records FoundNo Status Records Found INFORMATION SOURCE (unrecogn ized section and content) DATE CREATED AUTHOR 03/14/2019 [facility] DATE CREATED AUTHOR AUTHOR'S ORGANIZ ATION 09/03/2021 [facility] Minister Helper DATE CREATED AUTHOR AUTHOR'S ORGANIZ ATION 07/07/2023 [facility] DATE CREATED AUTHOR AUTHOR'S ORGANIZ ATION 04/30/2024 [facility] DATE CREATED AUTHOR AUTHOR'S ORGANIZ ATION 08/17/2024 [facility] DATE CREATED AUTHOR AUTHOR'S ORGANIZ ATION 09/24/2024 [facility] EPIC Care Teams (unrecognized sec tion and content) Team MemberRelationshipSpecialtyStart DateEnd Date Kay Saleem MD [address] [place] [address] [facility] - [facility]09/12/22 Kay Saleem MD [address] [place] [address] PCP - Char RODRIGUEZ04/09/23Team MemberRelationshipSpecialtyStart DateEnd Date Kay Saleem MD [address] [place] [address] [facility] - [facility]09/12/22 Kay Saleem MD [address] [place] [address] PCP - Char MA04/09/23Team MemberRelationshipSpecialtyStart DateEnd Date Kay Saleem MD [address] [place] [address] PCP - GeneralFamily Medicine09/12/22 Kay Saleem MD [address] [place] [address] PCP - Char RODRIGUEZ04/09/23 Kay Thomas, RN Registered NurseFederal [facility], [facility] Medicine06/01/23Team MemberRelationshipSpecialtyStart Date End Date Kay Saleem MD [address] [place] [address] PCP - [facility]09/12/22 Kay Saleem MD [address] [place] [address] PCP - Char RODRIGUEZ04/09/23 Kay Thomsa, RN Registered NurseFederal [facility] [place] Medicine06/01/23Team MemberRelationshipSpecialtyStart Date End Date Kay Saleem MD [address] [place] [address] PCP - [facility]09/12/22 Kay Saleem MD [address] [place] [address] PCP - Char RODRIGUEZ04/09/23 Kay Thomas, RN Registered NurseCommunity [facility] Hospitally Medicine06/01/23Team MemberRelationshipSpecialtyStart Date End Date Kay Saleem MD [address] [place] [address] PCP - GeneralFamily Medicine09/12/22 Kay Saleem MD [address] [place] [address] PCP - Char RODRIGUEZ04/09/23 Kay Thomas, RN [facility]06/01/23Team MemberRelationshipSpecialtyStart Date End Date Kay Saleem MD [address] [place] [address] PCP - GeneralFamily Medicine09/12/22 Kay Saleem MD [address] [place] [address] PCP - Char RODRIGUEZ04/09/23 Kay Thomas, RN [facility]Do[facility]06/01/23Team MemberRelationshipSpecialtyStart Date End Date Kay Saleem MD [address] [place] [address] PCP - [facility]09/12/22 Kay Saleem MD [address] [place] [address] PCP - Char RODRIGUEZ04/09/23Team MemberRelationshipSpecialtyStart DateEnd Date Kay Saleem MD [address] [place] [address] PCP - GeneralFamily Medicine09/12/22 Kay Saleem MD [address] [place] [address] PCP - Char PR04/09/23Team MemberRelationshipSpecialtyStart DateEnd Date Kay Saleem MD [address] [place] [address] PCP - GeneralFamily Medicine09/12/22 Kay Saleem MD [address] [place] [address] PCP - Char PR04/09/23Team MemberRelationshipSpecialtyStart DateEnd Date Leyla Bajwa APRN-NEON SIGN E[employer]OR [address] [place] [address] PCP - GeneralInternal Medicine05/24/18Team MemberRelationshipSpecialtyStart Date End Date Leyla Bajwa APRN-[employer]ON SIGN E[employer]OR [address] [place] [address] PCP - GeneralInternal Medicine05/24/18Team MemberRelationshipSpecialtyStart Date End Date Leyla Bajwa EXERCISER HORSE-[employer]ON SIGN ERECTOR [address] [place] [address] PCP - GeneralInternal Medicine05/24/18Team MemberRelationshipSpecialtyStart Date End Date Leyla Bajwa EXERCISER H[employer]SE[employer] S[employer] E[employer]OR [address] [place] [address] PCP - GeneralInternal Medicine05/24/18Team MemberRelationshipSpecialtyStart Date End Date Leyla Bajwa, EXERCISER HORSE[employer] SIGN E[employer]OR [address] [place] [address] PCP - GeneralInternal Medicine05/24/18Team MemberRelationshipSpecialtyStart Date End Date Leyla Bajwa APRN-[employer]ON S[employer] E[employer]OR [address] [place] [address] PCP - GeneralInternal Medicine05/24/18am MemberRelationshipSpecialtyStart Date End Date Kay Saleem MD [address] [place] [address] PCP - GeneralFamily Medicine09/12/22Team MemberRelationshipSpecialtyStart DateEnd Date Kay Saleem MD [address] [place] [address] PCP - GeneralFamily Medicine09/12/22 Kay Saleem MD [address] [place] [address] PCP - Char RODRIGUEZ04/09/23Team MemberRelationshipSpecialtyStart DateEnd Date Kay Saleem MD [address] [place] [address] PCP - GeneralFamily Medicine09/12/22 Kay Saleem MD [address] [place] [address] PCP - [place] MA04/09/23Team MemberRelationshipSpecialtyStart DateEnd Date Kay Saleem MD [address] [place] [address] PCP - GeneralFamily Medicine09/12/22 Kay Saleem MD [address] [place] [address] PCP - [place] PR04/09/23Team MemberRelationshipSpecialtyStart DateEnd Date Kay Saleem MD [address] [place] [address] PCP - GeneralFami Medicine09/12/22 Kay Saleem MD [address] [place] [address] PCP - [place] PR04/09/23Te MemberRelationshipSpecialtyStart DateEnd Date Kay Saleem MD [address] [place] [address] PCP - GeneralFamily Medicine09/12/22 Kay Saleem MD [address] [place] [address] PCP - [place] PR04/09/23Te MemberRelationshipSpecialtyStart DateEnd Date Kay Saleem MD [address] [place] [address] PCP - GeneralFamily Medicine09/12/22 Kay Saleem MD [address] [place] [address] PCP - Char RODRIGUEZ04/09/23 Team Status: Active Member Role Status Dates Kay Saleem MD Primary Care Provide r Active Team Status: Inactive Member Role Status Dates Carole Cespedes DO Attending Provider Active Start: December 17, 2024 End: December 17, 2024Qamar Perales Care Provider ActiveStart: December 17, 2024 End: December 17, 2024 Reason for Visit (unrecogniz ed section and content) ReasonCommentsHoarsenessDysphonia for about 1 yrSpecialtyDiagnoses / Procedures Referred By ContactReferred To ContactOtolaryngology Diagnoses Dysphonia Procedures NM OFFICE/OUTPATIENT NEW HIGH MDM 60 MINUTES Kay Saleem MD [facility] [place] [address] Carlos Baugh MD [facility] [place] [address] Referral IDStatusReasonGrand Saline DateExpiration DateVisits RequestedVisits [id number] Specialty Services Required /[id number] Follow-upReasonCommentsNew Patient Sleep ApneaHST: 07/04/2023On PAP Therapy, has not used PAP since 05/2022Reason Onset DateCommentsSleep Lab06/13/2023HSTSpecialtyDiagnoses / ProceduresReferred By ContactReferred To Contact Diagnoses Obstructive sleep apnea Procedures Home sleep study Kay Saleem MD [address] [place] [address] [facility] [address] [place] [address] Phone: [phone] Referral IDStatusReasonStplummer DateExpiration DateVisits RequestedVisits [id number] Apnea Compliance/Setup: 08/08/2024DME: HartReasonOnset DateCommentsspeech therapy 06/02/2024ReasonOnset DateCommentsMed Dhyvpc8706/10/2024ReasonCommentsTransient Ischemic AttackReasonCommentsTransient Ischemic AttackReasonOnset DateCommentsRx for MRI Cmffqytsfumnyw66/27/2025ReasonCommentsMedicare Annual Wellness Visit SubsequentReasonCommentsMed Refill Goals (unrecognized section and content) Goals may be documented in a n alternate section FOR RECORDS PERTAINING TO PATIENTS WHO ARE OR HAVE BEEN ENROLLED IN A CHEMICAL DEPENDENCY/SUBSTANCEABUSE PROGRAM, SOME INFORMATION MAY BE OMITTED. This clinical summary was aggregated from multiple sources. Caution should be exercised in using it in the provision of clinical care. This summary normalizes information from multiple sources, and as a consequence, information in this document may materially change the coding, format and clinical context of patient data. In addition, data may be omitted in some cases. CLINICAL DECISIONS SHOULD BE BASED ON THE PRIMARY CLINICAL RECORDS. [email or web address] provides no warranty or guarantee of the accuracy or completeness of information in this document.
[2025-02-21] MEDS: ACETAMINOPHEN 500 MG TABLET PO (16:45)
[2025-02-21 17:13] LABS: Lactate/Lactic Acid 1.6 mmol/L (0.4-2.0)
[2025-02-21 17:33] LABS: Hematocrit 39.5 % (42.0-54.0); Hemoglobin 13.9 g/dL (14.0-18.0); Immature Granulocytes Abs Auto 0.04 10^3/uL (0.00-0.03); Immature Granulocytes Pct Auto 0.3 % (0.0-0.5); Lymphocytes Absolute Auto 1.7 10^3/uL (1.2-3.8); Mean Corpuscular HGB Conc 35.2 g/dL (29.9-35.2); Mean Corpuscular Hemoglobin 31.9 pg (25.9-34.0); Mean Corpuscular Volume 90.6 fL (80.0-94.0); Platelet Count 173 10^3/uL (150-450); Red Blood Count 4.36 10^6/uL (4.70-6.10); White Blood Count 11.7 10^3/uL (4.0-11.0)
[2025-02-21 17:43] LABS: PCO2 VBG 36.5 mmHg (40.0-52.0); pH VBG 7.434 (7.330-7.430)
[2025-02-21 17:58] LABS: Alanine Aminotransferase 30 U/L (16-63); Albumin Globulin Ratio 1.0; Albumin Level 3.7 g/dL (3.4-5.0); Alkaline Phosphatase 82 U/L (46-116); Anion Gap 15.9; Aspartate Amino Transferase 22 U/L (15-37); Blood Urea Nitrogen 18.0 mg/dL (7.0-18.0); Calcium 8.8 mg/dL (8.5-10.1); Carbon Dioxide 24.9 mmol/L (21.0-32.0); Chloride 101 mmol/L (98-107); Estimated GFR (African America >60 (>=60 mL/min/1.73m^2); Estimated GFR (Non-African Ame 57 (>=60 mL/min/1.73m^2); Globulin 3.8 g/dL; Glucose 122 mg/dL (74-106); Potassium 3.8 mmol/L (3.5-5.1); Sodium 138 mmol/L (136-145); Total Protein 7.5 g/dL (6.4-8.2)
[2025-02-21 18:01] LABS: Magnesium 2.1 mg/dL (1.8-2.4)
[2025-02-21 18:05] LABS: SARS-CoV-2 Ag NEGATIVE (NEGATIVE)
--- NOTE | 2025-02-21 18:13 | ED.GENADUL1 ---
HPI HPI - General Adult General Chief complaint: Altered Mental Status Stated complaint: Altered Mental Status Shortness of Breath Time Seen by Provider: 02/21/25 16:08 Source: patient and family Mode of arrival: walk-in History of Present Illness HPI narrative: Patient is a 74-year-old male who is presenting to the ER today with chief complaint confusion intermittently going on for weeks. Today patient was having some additional confusion where he made comments to the that it is not Duck season and also making comments that who shooting the basketball there is nobody on the court patient had several comments made today that did not correlate with anything that was happening at home today. Patient was also sitting at the table and he was trying to pick bubbles out of the ER that were nonexistent. Patient states that he intermittently sees things running down the huang, possibly a mouse which they do not have mice. Patient also has been having shortness of breath intermittently at rest and with exertion. Patient has no cardiac history. Patient did have a echocardiogram at the beginning of this year. Patient has no history of NH or stents. Patient does have progressing dementia. Patient sees neurology and also has a PCP Dr Palacios. Patient has no chest pain or tightness. No abdominal pain nausea vomiting, no other acute complaints. Unless otherwise stated in this report or unable to obtain because of the patient's clinical or mental status as evidenced by medical record, the patient's positive and negative responses for review of systems for constitutional, eyes, ENT, cardiovascular, respiratory, gastrointestinal, neurological, , musculoskeletal, and integument systems and related systems to the presenting problem are either stated in the history of present illness or were not pertinent or were negative for the symptoms and/or complaints related to the presenting medical problem. Nurses note and vital signs reviewed and patient is not hypoxic. General: The patient appears well and in no apparent distress. Patient is resting comfortably on cart. Patient is not toxic, lethargic, or listless Skin: Warm, dry, no pallor noted. There is no rash noted. No petechiae, purpura. Head: Normocephalic, atraumatic Eye: Normal conjunctiva, no drainage, EOMI. PERRL Ears, Nose, Mouth, and Throat: oral mucosa is moist. Nares patent. Mouth without vesicles. Cardiovascular: Regular Rate and Rhythm, no murmur, gallop, rub Respiratory: Patient is in no distress, no accessory muscle use, lungs are clear to auscultation, no wheezing, rales or rhonchi Back: non-tender, no CVA tenderness bilaterally to percussion. No CT LS midline pain GI: no tenderness to palpation, no masses appreciated. No rebound, guarding, or rigidity noted. No distention Musculoskeletal: Patient has full range of motion of all of the extremities, no motor, sensory, or focal neurological deficits Neurological: A&O x4, normal speech; patient is hard of hearing, this is his normal baseline. He does not have his hearing aids in at this time. Psychiatric: Cooperative Related Data Home Medications ?Medication ?Instructions ?Recorded ?Confirmed citalopram 40 mg tablet 40 mg PO DAILY 04/21/24 04/22/24 donepezil 10 mg tablet 10 mg PO .QHS 04/21/24 04/22/24 rosuvastatin 10 mg tablet 10 mg PO .QHS 04/21/24 04/22/24 Previous Rx's ?Medication ?Instructions ?Recorded aspirin 81 mg tablet,delayed 81 mg PO DAILY 30 days #30 tabs 04/22/24 release Allergies Allergy/AdvReac Type Severity Reaction Status Date / Time No Known Drug Allergies Allergy Verified 04/21/24 17:03 Opioid HPI Opioid Management Most Recent Opioid Data: Last MAR Pain Assessment Today, 16:45 Last ORT Total Score 0 04/21/24, 23:30 Last ORT Risk Category Low Risk 04/21/24, 23:30 [facility] Medical History (Updated 02/21/25 @ 18:34 by Mick Velarde MD) Anxiety ?F41.9 - Anxiety disorder, unspecified (ICD-10) Hyperlipidemia ?E78.5 - Hyperlipidemia, unspecified (ICD-10) History of dementia ?Z86.59 - Personal history of other mental and behavioral disorders (ICD-10) Social History Little interest or pleasure in doing things: not at all Feeling down, depressed, or hopeless: not at all Exam Constitutional Vital Signs, click to edit/add: Last Vital Signs Temp 100.3 F 02/21/25 15:56 Pulse 85 02/21/25 18:00 Resp 24 H 02/21/25 18:10 BP 154/87 H 02/21/25 16:02 Pulse Ox 94 L 02/21/25 18:10 O2 Del Method Room Air 02/21/25 15:56 Course Vital Signs Vital signs: Vital Signs Temperature 100.3 F 02/21/25 15:56 Pulse Rate 92 H 02/21/25 15:56 Respiratory Rate 32 H 02/21/25 15:56 Blood Pressure 154/87 H 02/21/25 15:56 Pulse Oximetry 93 L 02/21/25 15:56 Oxygen Delivery Method Room Air 02/21/25 15:56 Temperature 100.3 F 02/21/25 15:56 Pulse Rate 85 02/21/25 18:00 Respiratory Rate 24 H 02/21/25 18:10 Blood Pressure 154/87 H 02/21/25 16:02 Pulse Oximetry 94 L 02/21/25 18:10 Oxygen Delivery Method Room Air 02/21/25 15:56 Medical Decision Making MDM Narrative Medical decision making narrative: Patient seen and examined: Patient will have a septic workup, patient does have a fever of 100.3. Patient's heart rate is greater than 92, temp 100.3 Differential diagnosis includes but is not limited to: Flulike symptoms, sepsis, influenza, COVID, UTI, pneumonia, pleural effusion Relevant laboratory interpretation: White blood cell count 11.7; pH 7.43 Radiological studies: CT head negative, chest x-ray negative. Reevaluation: Patient was given Tylenol for his fever 100.3. Patient was given 1 L IV fluid. Patient has no acute findings on testing, influenza and COVID were negative. Social barriers to healthcare: There are no food insecurities, there is no issue with transportation, there are no insurance barriers. Disposition: Patient has no acute findings for the source of fever. Urine shows no acute findings, COVID influenza negative. Patient will follow-up with PCP and neurologist. Patient and feel comfortable going home, no questions at discharge EKG interpretation. Normal sinus rhythm at 92 beats a minute. Left axis deviation. Incomplete right bundle branch block, QTc of 400. Diagnosis: Febrile illness, confusion, intermittent delirium Lab Data Labs: Lab Results 02/21/25 02/21/25 02/21/25 Range/Units 16:06 16:10 16:56 WBC (4.0-11.0) 10^3/uL RBC (4.70-6.10) 10^6/uL Hgb (14.0-18.0) g/dL Hct (42.0-54.0) % MCV (80.0-94.0) fL MCH (25.9-34.0) pg MCHC (29.9-35.2) g/dL RDW (11.0-15.0) % Plt Count (150-450) 10^3/uL MPV (9.5-13.5) fL Neut % (Auto) (43.0-75.0) % Lymph % (Auto) (20.5-60.0) % [place] % (Auto) (1.7-12.0) % Eos % (Auto) (0.9-7.0) % Baso % (Auto) (0.2-2.0) % Neut # (Auto) (1.4-6.5) 10^3/uL Lymph # (Auto) (1.2-3.8) 10^3/uL [place] # (Auto) (0.3-0.8) 10^3/uL Eos # (Auto) (0.0-0.7) 10^3/uL Baso # (Auto) (0.0-0.1) 10^3/uL Abs Immat Gran (auto) (0.00-0.03) 10^3/uL Imm/Tot Granulo (auto) (0.0-0.5) % VBG pH (7.330-7.430) VBG pCO2 (40.0-52.0) mmHg Sodium (136-145) mmol/L Potassium (3.5-5.1) mmol/L Chloride (98-107) mmol/L Carbon Dioxide (21.0-32.0) mmol/L Anion Gap BUN (7.0-18.0) mg/dL Creatinine (0.70-1.30) mg/dL Est GFR ( Amer) (>=60 mL/min/1.73m^2) Est GFR (Non-Af Amer) (>=60 mL/min/1.73m^2) BUN/Creatinine Ratio Glucose (74-106) mg/dL Lactate 1.6 (0.4-2.0) mmol/L Calcium (8.5-10.1) mg/dL Magnesium (1.8-2.4) mg/dL Total Bilirubin (0.2-1.0) mg/dL AST (15-37) U/L ALT (16-63) U/L Alkaline Phosphatase (46-116) U/L Troponin I High Sens (4.0-76.1) pg/mL Total Protein (6.4-8.2) g/dL Albumin (3.4-5.0) g/dL Globulin g/dL Albumin/Globulin Ratio Urine Color (YELLOW) Urine Clarity (CLEAR) Urine pH (5.0-9.0) Ur Specific [place] (1.005-1.025) Urine Protein (NEG/TRACE) mg/dL Urine Glucose (UA) (NEGATIVE) mg/dL Urine Ketones (NEGATIVE) mg/dL Urine Occult Blood (NEGATIVE) Urine Nitrite (NEGATIVE) Urine Bilirubin (NEGATIVE) Urine Urobilinogen (0.2-1.0) EU/dL Ur Leukocyte Esterase (NEGATIVE) Urine RBC (0-2) #/HPF Urine WBC (NONE SEEN) #/HPF Ur Squamous Epith Cells (NONE/RARE) #/LPF Urine Crystals (None Seen) #/HPF Urine Bacteria (NONE SEEN) #/HPF Urine Casts (NONE SEEN) #/LPF Urine Mucus (NONE SEEN) Influenza Type A Ag Negative Influenza Type B Ag Negative SARS-CoV-2 Ag (CV2AG) Negative (NEGATIVE) POC Glucose 131 H (74-106) mg/dL 02/21/25 02/21/25 Range/Units 17:24 18:17 WBC 11.7 H (4.0-11.0) 10^3/uL RBC 4.36 L (4.70-6.10) 10^6/uL Hgb 13.9 L (14.0-18.0) g/dL Hct 39.5 L (42.0-54.0) % MCV 90.6 (80.0-94.0) fL MCH 31.9 (25.9-34.0) pg MCHC 35.2 (29.9-35.2) g/dL RDW 13.6 (11.0-15.0) % Plt Count 173 (150-450) 10^3/uL MPV 9.6 (9.5-13.5) fL Neut % (Auto) 71.5 (43.0-75.0) % Lymph % (Auto) 14.5 L (20.5-60.0) % [place] % (Auto) 12.5 H (1.7-12.0) % Eos % (Auto) 0.9 (0.9-7.0) % Baso % (Auto) 0.3 (0.2-2.0) % Neut # (Auto) 8.4 H (1.4-6.5) 10^3/uL Lymph # (Auto) 1.7 (1.2-3.8) 10^3/uL [place] # (Auto) 1.5 H (0.3-0.8) 10^3/uL Eos # (Auto) 0.1 (0.0-0.7) 10^3/uL Baso # (Auto) 0.0 (0.0-0.1) 10^3/uL Abs Immat Gran (auto) 0.04 H (0.00-0.03) 10^3/uL Imm/Tot Granulo (auto) 0.3 (0.0-0.5) % VBG pH 7.434 H (7.330-7.430) VBG pCO2 36.5 L (40.0-52.0) mmHg Sodium 138 (136-145) mmol/L Potassium 3.8 (3.5-5.1) mmol/L Chloride 101 (98-107) mmol/L Carbon Dioxide 24.9 (21.0-32.0) mmol/L Anion Gap 15.9 BUN 18.0 (7.0-18.0) mg/dL Creatinine 1.25 (0.70-1.30) mg/dL Est GFR ( Amer) >60 (>=60 mL/min/1.73m^2) Est GFR (Non-Af Amer) 57 L (>=60 mL/min/1.73m^2) BUN/Creatinine Ratio 14.4 Glucose 122 H (74-106) mg/dL Lactate (0.4-2.0) mmol/L Calcium 8.8 (8.5-10.1) mg/dL Magnesium 2.1 (1.8-2.4) mg/dL Total Bilirubin 0.6 (0.2-1.0) mg/dL AST 22 (15-37) U/L ALT 30 (16-63) U/L Alkaline Phosphatase 82 (46-116) U/L Troponin I High Sens 4.9 (4.0-76.1) pg/mL Total Protein 7.5 (6.4-8.2) g/dL Albumin 3.7 (3.4-5.0) g/dL Globulin 3.8 g/dL Albumin/Globulin Ratio 1.0 Urine Color Lt. yellow (YELLOW) Urine Clarity Clear (CLEAR) Urine pH 6.0 (5.0-9.0) Ur Specific [place] 1.010 (1.005-1.025) Urine Protein Negative (NEG/TRACE) mg/dL Urine Glucose (UA) Negative (NEGATIVE) mg/dL Urine Ketones Trace A (NEGATIVE) mg/dL Urine Occult Blood Trace-i (NEGATIVE) Urine Nitrite Negative (NEGATIVE) Urine Bilirubin Negative (NEGATIVE) Urine Urobilinogen 4.0 A (0.2-1.0) EU/dL Ur Leukocyte Esterase Negative (NEGATIVE) Urine RBC None seen (0-2) #/HPF Urine WBC None seen (NONE SEEN) #/HPF Ur Squamous Epith Cells None seen (NONE/RARE) #/LPF Urine Crystals None seen (None Seen) #/HPF Urine Bacteria None seen (NONE SEEN) #/HPF Urine Casts None seen (NONE SEEN) #/LPF Urine Mucus None seen (NONE SEEN) Influenza Type A Ag Influenza Type B Ag SARS-CoV-2 Ag (CV2AG) (NEGATIVE) POC Glucose (74-106) mg/dL Discharge Plan Discharge Chief Complaint: Altered Mental Status Clinical Impression: Febrile illness, Confusion, Delirium Patient Disposition: Home, Self-Care Time of Disposition Decision: 18:36 Prescriptions / Home Meds: No Action citalopram 40 mg tablet 40 mg PO DAILY donepezil 10 mg tablet 10 mg PO .QHS rosuvastatin 10 mg tablet 10 mg PO .QHS aspirin 81 mg tablet,delayed release (DR/EC) 81 mg PO DAILY 30 Days Qty: 30 0RF Print Language: Andorran Instructions: Fever in Adults (ED), Acute Delirium (ED), Lightheadedness (ED) Additional Instructions: If fever returns, use Tylenol as needed. Follow-up with PCP for further evaluation if confusion or visual or auditory hallucinations continue. Follow-up with neurology as needed. Referrals: RUSS SALEEM [Primary Care Provider, Family Practice] - 1 week
[2025-02-21 18:29] LABS: Glucose Urine UA NEGATIVE (NEGATIVE)
[2025-02-21 18:37] LABS: Cast Seen? NONE SEEN #/LPF (NONE SEEN); Crystals Seen? None Seen #/HPF (None Seen)
== END 2025-02-21 18:48 | disposition home or self-care (01) ==
PROVIDERS: Emergency Provider Emergency Medicine; PCP Family Medicine
DX: R50.9 Fever, unspecified (principal); R41.0 Disorientation, unspecified; R06.02 Shortness of breath; F03.90 Unspecified dementia, unspecified severity, without behavioral disturbance, psychotic disturbance, mood disturbance, and anxiety
CPT/HCPCS: 36415; 70450; 71045; 80053; 81001; 82800; 82947; 83605; 83735; 84484; 85025; 87040; 87804; 87811; 93005; 99285